=== PATIENT | female | born 1935 | race Caucasian/White ===

== ENCOUNTER 2017-05-23 03:12 | Inpatient (IN) ==
[2017-05-23 03:44] LABS: Basophils % 0.4 %; Eosinophils # 0.2 K/mcL (0.0-0.6); Eosinophils % 2.2 %; Hematocrit 38.3 % (35.3-44.9); Hemoglobin 12.5 g/dL (11.5-15.4); Immature Granulocytes % 0.3 % (0-4); Immature Platelets 3.9 % (1.1-6.1); Lymphocytes % 27.2 %; Mean Corpuscular HGB Conc 32.6 g/dL (31.6-35.5); Mean Corpuscular Hemoglobin 30.4 pg (28.0-33.3); Mean Corpuscular Volume 93.2 fL (83.0-100.0); Mean Platelet Volume 10.3 fL (9.4-12.4); Monocytes # 0.7 K/mcL (0.0-1.3); Monocytes % 9.3 %; Neutrophils # 4.5 K/mcL (1.6-8.9); Platelet Count 196 K/mcL (140-400); Red Blood Count 4.11 M/mcL (3.82-4.97); Red Cell Distribution Width 13.1 % (11.5-14.5); Segmented Neutrophils % 60.6 %
[2017-05-23 03:54] LABS: Potassium 4.3 mEq/L (3.5-4.5)
[2017-05-23] MEDS ORDERED: Aspirin 81 MG TAB.CHEW PO STA (04:20)
[2017-05-23] MEDS ORDERED: *HR* Heparin 5,000 UNIT/ML VIAL IVP ONE (04:22)
[2017-05-23] MEDS ORDERED: *HR* Heparin 5,000 UNIT/ML VIAL IVP PRN ×2 (04:22)
--- NOTE | 2017-05-23 04:26 | Emergency Department Note ---
Disposition Clinical Impression: NSTEMI (non-ST elevated myocardial infarction) Disposition: Admitted As Inpatient Condition: Good Chest Pain HPI - General Chief Complaint: ED Chest Pain Stated Complaint: chest pain Time Seen by Provider: 05/23/17 04:20 Source: patient Limitations: no limitations Vital Signs Reviewed: Yes Nursing Notes Reviewed: Yes - History of Present Illness HPI Narrative: Patient here for evaluation of chest pain that started at 1 AM after she tried to get her up to go the bathroom. Patient states chest pain feels like pain prior to previous triple bypass surgery. She takes daily aspirin but no other anticoagulation. Patient continued to have active chest pain. Worse with exertion. Severity scale (1-10): 7 - Related Data Home Medications Medication Instructions Recorded Confirmed Aspirin 81 mg PO DAILY 03/25/16 03/25/16 Atorvastatin [Lipitor] 40 mg PO HS 03/25/16 03/25/16 Calcium Acetate [Phos-LO] 667 mg PO TIDWM 03/25/16 03/25/16 Docusate [Colace] 100 mg PO 03/25/16 Furosemide [Lasix] 20 mg PO DAILY 03/25/16 03/25/16 Metoprolol [Lopressor] 50 mg PO BID 03/25/16 03/25/16 Multivitamin [Multi-Day Vitamins] 1 each PO DAILY 03/25/16 03/25/16 Niacin [Niacin] 100 mg PO DAILY 03/25/16 03/25/16 Pantoprazole Sodium [Protonix] 40 mg PO DAILY 03/25/16 03/25/16 Vitamin E Acid Succinate [Vitamin 400 units PO DAILY 03/25/16 03/25/16 E] Previous Rx's Medication Instructions Recorded Cetirizine HCl [Zyrtec] 10 mg PO DAILY 4 Days 03/25/16 Doxycycline 100 mg PO BID 7 Days 03/25/16 Fluticasone Propionate Nasal 2 spray NS DAILY 7 Days 03/25/16 [Flonase] Allergies Allergy/AdvReac Type Severity Reaction Status Date / Time Sulfa (Sulfonamide Allergy unknown Verified 03/25/16 10:14 Antibiotics) Iodinated Contrast- Oral and AdvReac Swelling Verified 03/25/16 10:14 IV Dye of [Iodinated Contrast Media - Lip/Tongue/Throat IV Dye] Review of Systems: CONSTITUTIONAL: No weight loss, fever, chills, weakness or fatigue. HEENT: Eyes: No visual changes. Ears, Nose, Throat: No hearing loss, difficulty talking or unable to swallow. SKIN: No rash or itching. CARDIOVASCULAR: Chest pain RESPIRATORY: No shortness of breath, cough or sputum. GASTROINTESTINAL: No anorexia, nausea, vomiting or diarrhea. No abdominal pain or blood. GENITOURINARY: No burning on urination or hematuria. NEUROLOGICAL: No headache, dizziness, syncope, paralysis, ataxia, numbness or tingling in the extremities. No change in bowel or bladder control. MUSCULOSKELETAL: No muscle pain, back pain, joint pain or stiffness. Chest Pain PMH - Past Medical History Medical history: Reports: coronary artery disease, GERD, hyperlipidemia, hypertension, myocardial infarction, osteoporosis Surgical history: Reports: appendectomy, cholecystectomy, hysterectomy, other ( Right corneal transplant) Psychiatric history: Reports: no psych history CHEF GERMAN history: Reports: no CHEF GERMAN history - Social History Smoking Status: Never smoker Alcohol use: Reports: none Drug use: Reports: none Physical Exam General appearance: NAD, conversant Eyes: anicteric sclerae, moist conjunctivae; PERRL HENT: Atraumatic; oropharynx clear with moist mucous membranes and no mucosal ulcerations Neck: Normal inspection; Trachea midline; FROM, supple Lungs: CTA, with normal respiratory effort and no intercostal retractions CV: RRR, no MRGs Abdomen: Soft, non-tender; no rebound or gaurding Extremities: No peripheral edema or extremity lymphadenopathy Skin: Normal temperature; no rash, ulcers or lesions Psych: Appropriate mood and affect Neuro: alert and oriented to person, place and time - General Limitations: no limitations General appearance: alert, in no apparent distress Course - Reevaluation(s) Reevaluation #1: Patient presents for evaluation of chest pain. Due to your circumstances the patient received an EKG and initial labs but had to wait in the lobby. Troponin 0.32. Patient brought back to the main ER. Medications including heparin started. She will be admitted for further workup. - Consultations Consultation #1: Discussed with Dr. Garza. Patient replaced on a nitro drip. Heparin drip as are even started. Will discuss with cardiology. Consultation #2: Discussed with Dr. Myles, agrees with nitro and heparin. No other interventions at this time. Vital Signs Temperature 98.0 F 05/23/17 03:14 Pulse Rate 71 05/23/17 03:14 Respiratory Rate 16 05/23/17 03:14 Blood Pressure 151/98 05/23/17 03:14 O2 Sat by Pulse Oximetry 97 05/23/17 03:14 Temperature 98.0 F 05/23/17 03:14 Pulse Rate 72 05/23/17 06:32 Respiratory Rate 16 05/23/17 06:32 Blood Pressure 133/70 05/23/17 06:32 O2 Sat by Pulse Oximetry 96 05/23/17 06:32 Oxygen Delivery Oxygen Delivery Nasal Cannula Chest Pain - Lab Data Result diagrams: 05/23/17 03:35 05/23/17 03:35 Lab Results 05/23/17 05/23/17 05/23/17 Range/Units 03:35 03:35 03:35 WBC 7.3 (4.3-11.1) K/mcL RBC 4.11 (3.82-4.97) M/mcL Hgb 12.5 (11.5-15.4) g/dL Hct 38.3 (35.3-44.9) % MCV 93.2 (83.0-100.0) fL MCH 30.4 (28.0-33.3) pg MCHC 32.6 (31.6-35.5) g/dL RDW 13.1 (11.5-14.5) % Plt Count 196 (140-400) K/mcL MPV 10.3 (9.4-12.4) fL Immature Gran % 0.3 (0-4) % Seg Neutrophils % 60.6 % Lymphocytes % 27.2 % Monocytes % 9.3 % Eosinophils % 2.2 % Basophils % 0.4 % Neutrophils # 4.5 (1.6-8.9) K/mcL Lymphocytes # 2.0 (0.6-4.6) K/mcL Monocytes # 0.7 (0.0-1.3) K/mcL Eosinophils # 0.2 (0.0-0.6) K/mcL Basophils # 0.0 (0.0-0.2) K/mcL Immature Plt Fraction 3.9 (1.1-6.1) % PT (9.4-12.1) Seconds INR APTT (26.0-36.0) Seconds Sodium 141 (136-145) mEq/L Potassium 4.3 (3.5-4.5) mEq/L Chloride 106 (98-109) mEq/L Carbon Dioxide 27 (19-29) mEq/L BUN 21 H (7-20) mg/dL Creatinine 1.27 H (0.57-1.11) mg/dL Est GFR ( Amer) 49 L (> 60) Est GFR (Non-Af Amer) 40 L (> 60) BUN/Creatinine Ratio 17 (6-26) Glucose 105 H (70-99) mg/dL Calculated Osmolality 295 (280-300) Calcium 10.0 (8.6-10.8) mg/dL Troponin I 0.32 H* (0-0.03) ng/mL 05/23/17 Range/Units 04:41 WBC (4.3-11.1) K/mcL RBC (3.82-4.97) M/mcL Hgb (11.5-15.4) g/dL Hct (35.3-44.9) % MCV (83.0-100.0) fL MCH (28.0-33.3) pg MCHC (31.6-35.5) g/dL RDW (11.5-14.5) % Plt Count (140-400) K/mcL MPV (9.4-12.4) fL Immature Gran % (0-4) % Seg Neutrophils % % Lymphocytes % % Monocytes % % Eosinophils % % Basophils % % Neutrophils # (1.6-8.9) K/mcL Lymphocytes # (0.6-4.6) K/mcL Monocytes # (0.0-1.3) K/mcL Eosinophils # (0.0-0.6) K/mcL Basophils # (0.0-0.2) K/mcL Immature Plt Fraction (1.1-6.1) % PT 10.3 (9.4-12.1) Seconds INR 1.0 APTT 25.4 L (26.0-36.0) Seconds Sodium (136-145) mEq/L Potassium (3.5-4.5) mEq/L Chloride (98-109) mEq/L Carbon Dioxide (19-29) mEq/L BUN (7-20) mg/dL Creatinine (0.57-1.11) mg/dL Est GFR ( Amer) (> 60) Est GFR (Non-Af Amer) (> 60) BUN/Creatinine Ratio (6-26) Glucose (70-99) mg/dL Calculated Osmolality (280-300) Calcium (8.6-10.8) mg/dL Troponin I (0-0.03) ng/mL Critical Care Time Critical Care Time: Yes Total Critical Care Time: 45 Attestation: Critical care performed: Time is exclusive of separately billable procedures. Time includes: direct patient care, patient reassessment, coordination of patient care, interpretation of data (laboratory data, radiology data, and respiratory data), review of patient's medical records, medical consultation and documentation of patient care. Procedures included in critical care time: Procedures excluded from critical care time: Attestation Statement - Attestation Attestation: I, Dago Palencia MD, personally evaluated this patient and discussed their management with the resident physician. I reviewed the resident's note and agree with the documented findings, medical decision making, and plan of care. 81-year-old female presents to the emergency department with a complaint of some mid upper substernal chest pressure which started about 1 AM after she got up and went to the bathroom and then went back to bed. She states it radiates through to her upper back. At one point it can of radiated up into the neck and the left jaw. No diaphoresis. Some mild shortness of breath. No nausea or vomiting. Patient has a history of CABG in the past. No coronary stents. On examination patient is a well-developed well-nourished well-appearing elderly female in no acute distress. She is alert and oriented 3. There is no cyanosis or diaphoresis. Nontender to palpation. Breath sounds are clear and equal bilaterally. Heart regular rate and rhythm. Abdomen soft and nontender with normal bowel sounds. Labs reviewed. Elevated troponin noted. EKG shows some new inferior and anterolateral T-wave inversions with no ST elevation or depression. Chest x-ray : Left basilar atelectasis versus pneumonia. Pulmonary edema may also be present. Patient was placed on a heparin infusion and also nitroglycerin infusion. Dr. Izquierdo discussed with the skin drier on-call, Dr. Myles. The hospitalist , Dr. Garza, was consulted and accepted admission of the patient.
[2017-05-23] MEDS ORDERED: Heparin 25,000 UNIT/500 ML D5W 25,000 UNIT/500 ML MLS IVC SCH (04:30)
[2017-05-23] MEDS: Nitroglycerin 0.4 MG TAB.SUBL SL PRN ×3 (04:47→05:05)
[2017-05-23 04:51] LABS: Prothrombin Time 10.3 Seconds (9.4-12.1)
[2017-05-23 04:53] LABS: Activated Partial Thrombo Time 25.4 Seconds (26.0-36.0)
[2017-05-23] MEDS ORDERED: Nitroglycerin 25 MG/250 ML INFUS..BTL IVC SCH (05:45)
[2017-05-23] MEDS ORDERED: Acetaminophen 325 MG TABLET PO PRN (09:11)
[2017-05-23] MEDS ORDERED: Ondansetron 4 MG/2 ML VIAL IVP PRN (09:11)
[2017-05-23] MEDS ORDERED: *HR* HYDROcodone/Acet 5/325 mg TABLET PO PRN (09:11)
[2017-05-23] MEDS ORDERED: *HR* Morphine 2 MG/ML SYRINGE IVP PRN (09:11)
[2017-05-23] MEDS ORDERED: Naloxone 0.4 MG/ML INJ IVP PRN (09:11)
[2017-05-23] MEDS: Pantoprazole 40 MG VIAL IVP SCH (09:50)
--- NOTE | 2017-05-23 10:45 | Cardiology Consult Note ---
Date of Encounter: 05/23/17 Time of Encounter: 10:43 Assessment and Plan (1) NSTEMI (non-ST elevated myocardial infarction) Current Visit: Yes Status: Acute Initial troponin 0.32. STAT 2nd troponin ordered. Chest pain started at 1AM, currently rated 2/10 improving on nitro gtt. On heparin gtt and nitro gtt, ASA, Statin, BB. Inferolateral EKG changes. Recommend LHC. R/B/A discussed. Pt agrees to proceed. Aware code status needs changed for 24 hours after procedure. Agrees to proceed. Will discuss with Dr. Minh Myles to determine timing of LHC. IVP dye allergy. Will pre-medicate. Check echo to re-evaluate EF. (2) CAD (coronary artery disease), [place] coronary artery Current Visit: No Status: Acute 3V CABG ([facility]) 10/27/2015: JACKSON to LAD, SVG to OM, SVG to distal RCA. ASA, Statin , BB. Qualifiers: [place] vs. transplanted heart: [place] heart Associated angina: with unstable angina Qualified Code(s): I25.110 - Atherosclerotic heart disease of [place] coronary artery with unstable angina pectoris Discussion w patient/family: The assessment and plan as outlined above was discussed with the patient and/or family members who expressed understanding and agreement. All questions were answered. Thank you for involving us in the care of your patient. Please call with any questions. I will discuss all the above with Dr. Minh Myles and make changes as necessary. History of Present Illness Consult date: 05/23/17 Consult reason: NSTEMI Chief complaint: chest pain History of present illness: Ms. Phipps is a 81 year old female with PMH CAD, NSTEMI (10/25/2015), s/p 3V CABG (10/27/2015, [facility]), and postoperative AF. She presented to ED for chest pain that started around 1AM. It was midsternal with radiation to shoulder blades that continued to become more intense. No other associated symptoms. Nitro improved pain in ED. She is currently on nitro gtt at 14mcg/minute with CP 2/ 10. Initial troponin 0.32. Prior studies: LHC 10/25/2015: Multivessel CAD, including a 99% left main stenosis. Echocardiogram 10/24/2015: EF 60-65%. 3V CABG ([facility]) 10/27/2015: JACKSON to LAD, SVG to OM, SVG to distal RCA. Past Med Surg Social Fam HX - Past Medical History Medical history: atrial fibrillation, coronary artery disease, GERD, hyperlipidemia, hypertension, myocardial infarction, osteoporosis Psychiatric history: no psych history - Past Surgical History Surgical History: appendectomy, cholecystectomy, coronary bypass (CABG), hysterectomy, other - Social History Smoking Status: Never smoker Smokeless Tobacco Status: No Alcohol use: none Drug use: none - Family History Father Hx Family Cardiac Disorders: Yes Medications and Allergies Aspirin 81 mg PO DAILY 03/25/16 [History] Atorvastatin [Lipitor] 40 mg PO HS 03/25/16 [History] Calcium Acetate [Phos-LO] 667 mg PO TIDWM 03/25/16 [History] Cetirizine HCl [Zyrtec] 10 mg PO DAILY 4 Days 03/25/16 [Rx] Docusate [Colace] 100 mg PO 03/25/16 [History] Doxycycline 100 mg PO BID 7 Days 03/25/16 [Rx] Fluticasone Propionate Nasal [Flonase] 2 spray NS DAILY 7 Days 03/25/16 [Rx] Furosemide [Lasix] 20 mg PO DAILY 03/25/16 [History] Metoprolol [Lopressor] 50 mg PO BID 03/25/16 [History] Multivitamin [Multi-Day Vitamins] 1 each PO DAILY 03/25/16 [History] Niacin [Niacin] 100 mg PO DAILY 03/25/16 [History] Pantoprazole Sodium [Protonix] 40 mg PO DAILY 03/25/16 [History] Vitamin E Acid Succinate [Vitamin E] 400 units PO DAILY 03/25/16 [History] Allergies Sulfa (Sulfonamide Antibiotics) Allergy (Verified 03/25/16 10:14) unknown Iodinated Contrast- Oral and IV Dye [Iodinated Contrast Media - IV Dye] Adverse Reaction (Verified 03/25/16 10:14) Swelling of Lip/Tongue/Throat All Systems Review: A 10-system review of systems was performed and is negative for pertinent findings except as documented above in the HPI. - Cardiovascular Cardiovascular: as per HPI, chest pain at rest, chest pain with exertion, radiating jaw, neck or arm pain Physical Examination Vital Signs, Last 4 Hours Pulse Resp BP Pulse Ox 05/23/17 09:54 72 16 143/76 97 05/23/17 09:30 80 18 158/74 96 05/23/17 09:15 82 16 148/80 96 General: Conversant, No Apparent Distress HEENT: Atraumatic, Normocephaly, Mucus Membranes Moist Neck: No JVD, Normal carotid pulses Cardiac: Reg Rate and Rhythm, Normal S1 and S2, No Murmur Lungs: Normal Breath Sounds, No Wheeze, Rales, Rhonchi Neuro: Alert and responsive, No focal deficits noted Abdomen: Soft, Non-Tender Skin: No rashes noted on visualized skin Musculoskeletal: No Chest Wall Tenderness Extremities: No Clubbing, No Cyanosis, No Edema, Normal Pulses Results 05/23/17 03:35 05/23/17 03:35 Lab Results 05/23/17 10:21 APTT 88.1 H D Short CBC 05/23/17 Range/Units 03:35 WBC 7.3 (4.3-11.1) K/mcL Hgb 12.5 (11.5-15.4) g/dL Hct 38.3 (35.3-44.9) % Plt Count 196 (140-400) K/mcL Neutrophils # 4.5 (1.6-8.9) K/mcL BMP 05/23/17 Range/Units 03:35 Sodium 141 (136-145) mEq/L Potassium 4.3 (3.5-4.5) mEq/L Chloride 106 (98-109) mEq/L Carbon Dioxide 27 (19-29) mEq/L BUN 21 H (7-20) mg/dL Creatinine 1.27 H (0.57-1.11) mg/dL Glucose 105 H (70-99) mg/dL Calcium 10.0 (8.6-10.8) mg/dL Cardiac Enzymes 05/23/17 Range/Units 03:35 Troponin I 0.32 H* (0-0.03) ng/mL Impressions Chest X-Ray 05/23/17 03:19 IMPRESSION: Left basilar atelectasis versus pneumonia. Pulmonary edema may also be present. D/ / Ye Sanchez MD / Ye Sanchez MD Interpreting Provider: Ye Sanchez MD Active Medications Acetaminophen (Tylenol) 650 mg PO Q6HR PRN PRN Reason: Mild Pain (1-3) Stop: 11/22/17 09:12 Hydrocodone Bitart/Acetaminophen ([place] 5-325 Mg) 1 tab PO Q4HR PRN PRN Reason: Moderate Pain (4-6) Stop: 11/22/17 09:12 Aspirin (Aspirin Ec) 325 mg PO DAILY FALGUNI Stop: 11/23/17 09:01 Heparin Sodium (Porcine) (Heparin) 4,000 unit IVP Q6HR PRN PRN Reason: SEE COMMENTS Stop: 11/22/17 04:23 Heparin Sodium (Porcine) (Heparin) 2,000 unit IVP Q6H PRN PRN Reason: SEE COMMENTS Stop: 11/22/17 04:23 Heparin Sodium/Dextrose (Heparin 25,000 Unit/500 Ml D5w) 25,000 unit in 500 mls @ 17.418 mls/hr IVC .Q24H FALGUNI; 12 UNIT/KG/HR PRN Reason: Protocol Stop: 11/22/17 04:31 Last Admin: 05/23/17 05:08 Dose: 12 unit/kg/hr, 17.418 mls/hr Nitroglycerin (Nitroglycerin Premix 25 Mg/250 Ml) 25 mg in 250 mls @ 6 mls/hr IVC .Q24H FALGUNI; 10 MCG/MIN PRN Reason: Protocol Stop: 11/22/17 05:46 Last Titration: 05/23/17 08:30 Dose: 14 mcg/min, 8.4 mls/hr Morphine Sulfate (Morphine Sulfate) 2 mg IVP Q4HR PRN PRN Reason: Severe Pain (7-10) Stop: 11/22/17 09:12 Naloxone HCl (Narcan) 0.4 mg IVP Q2MIN PRN PRN Reason: Opioid Reversal Stop: 11/22/17 09:12 Nitroglycerin (Nitroglycerin) 0.4 mg SL Q5MIN PRN PRN Reason: Chest Pain Stop: 11/22/17 04:21 Last Admin: 05/23/17 05:05 Dose: 0.4 mg Ondansetron HCl (Zofran) 4 mg IVP Q8HR PRN PRN Reason: Nausea And Vomiting Stop: 11/22/17 09:12 Pantoprazole Sodium (Protonix) 40 mg IVP DAILY FALGUNI Stop: 11/22/17 09:16 Last Admin: 05/23/17 09:50 Dose: 40 mg - Imaging and Cardiology Echo: report reviewed Cardiac cath: report reviewed - EKG Interpretation EKG results cardiology: personally reviewed (SR, inferolateral changes) Consult Discharge Plan - Plan Referrals: Aristeo White MD [Primary Care Provider] -
[2017-05-23] MEDS: predniSONE 20 MG TABLET PO SCH ×2 (11:29→16:59)
--- NOTE | 2017-05-23 13:04 | Internal Med History&Physical ---
<Óscar Holbrook - Last Filed: 05/23/17 13:32> Date of Encounter: 05/23/17 Time of Encounter: 10:00 Assessment and Plan (1) NSTEMI (non-ST elevated myocardial infarction) Current visit: Yes Status: Acute Patient presents with chest pain which she states began approximately 1 AM with exertion when she tried to get her up to go to the bathroom. Patient describes the pain as a dull ache in the central chest area that radiates to her left neck and behind her head as well as between both shoulder blades. She reports this chest pain feels similar to the chest pain prior to her triple bypass surgery in 2016. She also reports 3 blockages of 95% to 99%, one of which is the maker. Mrs. Phipps states that the pain is present with or without exertion. Cardiology consult ordered and discussed with Dr. Myles and Дмитрий Mclean. Patient to be NPO due to probably heart catheterization tomorrow. Echocardiogram ordered. Continue IV heparin and nitroglycerin drips. Continue aspirin therapy. Patient's initial troponin was 0.32 on admission to ED. Troponins trended 2. Patient to be placed on cardiac telemetry and supplemental O2. Monitor closely for signs of increased cardiac and/or respiratory distress. (2) Elevated troponin Current visit: Yes Status: Acute Patient presents with acute elevated troponin of 0.32 on first draw. We will trend troponins 2. Cardiology consult ordered and discussed with Dr. Myles and Дмитрий Mclean. (3) CAD (coronary artery disease), [place] coronary artery Current visit: Yes Status: Chronic Patient presents with history of chronic coronary artery disease with triple bypass performed at [facility] on 10/27/2015. We will continue aspirin therapy, patient 's Lipitor, and metoprolol. Qualifiers: [place] vs. transplanted heart: [place] heart Associated angina: with unstable angina Qualified Code(s): I25.110 - Atherosclerotic heart disease of [place] coronary artery with unstable angina pectoris (4) GERD (gastroesophageal reflux disease) Current visit: Yes Status: Chronic Patient presents with history of chronic gastroesophageal reflux disease. IVP Protonix 40 mg daily ordered. Qualifiers: Esophagitis presence: esophagitis presence not specified Qualified Code(s) : K21.9 - Gastro-esophageal reflux disease without esophagitis (5) HLD (hyperlipidemia) Current visit: Yes Status: Chronic Patient presents with history of chronic hyperlipidemia. Lipid panel ordered. Will continue patient's Lipitor. Qualifiers: Hyperlipidemia type: pure hypercholesterolemia Qualified Code(s): E78.00 - Pure hypercholesterolemia, unspecified; E78.0 - Pure hypercholesterolemia (6) HTN (hypertension) Current visit: Yes Status: Chronic Patient presents with history of chronic hypertension. Upon admission to ED patient's blood pressure was 151/98. Will monitor patient in vital signs and continue patient's metoprolol. Qualifiers: Hypertension type: essential hypertension Qualified Code(s): I10 - Essential (primary) hypertension (7) DVT prophylaxis Current visit: Yes Status: Acute Patient placed on DVT prophylaxis due to current admission protocol and current symptomatology. IV heparin drip was administered in the ED and will be continued. Internal Medicine - H&P: HPI Chief complaint: Chest pain Admitted From: Emergency Dept Plans for Post Hospital Care: Home History of present illness: Mrs. Phipps is a 81 year old female who presents from the ED with chief complaint of chest pain which she states began approximately 1 AM with exertion when she tried to get her up to go to the bathroom. Patient describes the pain as a dull ache in the central chest area that radiates to her left neck and behind her head as well as between both shoulder blades. She reports this chest pain feels similar to the chest pain prior to her triple bypass surgery in 2016. She also reports 3 blockages of 95% to 99%, one of which is the maker. Mrs. Phipps states that the pain is present with or without exertion. Patient's medical history includes CAD, GERD, hyperlipidemia, hypertension, [place], and osteoporosis. Patient reports she has never smoked. IV heparin drip and IV nitro drip were administered in the ED and will be continued. Cardiology consult ordered and discussed with Dr. Myles. Patient will be kept nothing by mouth for probable heart catheterization tomorrow. Mrs. Phipps is at high risk for cardiac event based on previous MN, current symptoms, and current risk factors and will be placed as inpatient status with orders for continuous cardiac telemetry, supplemental O2 and continuous SPO2 monitoring, troponins trended 2, continuation of IV heparin drip, nitroglycerin drip, and aspirin therapy. We will continue patient's statin and beta adrian per cardiology. Patient to be monitored closely for signs of increasing cardiac and/or respiratory distress. Time spent with patient > 40 minutes. Past Med Surg Social Fam HX - Past Medical History Source: patient Medical history: atrial fibrillation, coronary artery disease, GERD, hyperlipidemia, hypertension, myocardial infarction, osteoporosis Psychiatric history: no psych history - Past Surgical History Surgical History: appendectomy, cholecystectomy, coronary bypass (CABG), hysterectomy (Total), other - Social History Smoking Status: Never smoker Smokeless Tobacco Status: No Alcohol use: none Drug use: none Current living situation: Home, With Family Activity Level: Independent ambulation Recent Out of Country Travel Within the Last 8 Weeks: No Exposure or Possible Exposure to Illness During Travel: No - Family History Father Race: Family Member Ethnicity: Non- Living Status: Age at : 49 Cause of : MN Hx Family Cardiac Disorders: Yes (MN) Mother Race: Family Member Ethnicity: Non- Living Status: Age at : 56 Cause of : Kidney Failure Hx Family Genitourinary Disorders: Yes (Renal disease) Brother Race: Family Member Ethnicity: Non- Living Status: Age at : 42 Cause of : [place] Hx Family Cardiac Disorders: Yes (MN, HD) Sister Race: Family Member Ethnicity: Non- Living Status: Still Living Hx Family Cardiac Disorders: Yes (HD) Internal Medicine - H&P: Meds Aspirin 81 mg PO DAILY 03/25/16 [History] Atorvastatin [Lipitor] 40 mg PO HS 03/25/16 [History] Calcium Acetate [Phos-LO] 667 mg PO TIDWM 03/25/16 [History] Cetirizine HCl [Zyrtec] 10 mg PO DAILY 4 Days 03/25/16 [Rx] Docusate [Colace] 100 mg PO DAILY 03/25/16 [History] Furosemide [Lasix] 20 mg PO DAILY 03/25/16 [History] Metoprolol [Lopressor] 50 mg PO BID 03/25/16 [History] Multivitamin [Multi-Day Vitamins] 1 tab PO DAILY 03/25/16 [History] Niacin [Niacin] 100 mg PO DAILY 03/25/16 [History] Pantoprazole Sodium [Protonix] 40 mg PO DAILY 03/25/16 [History] Vitamin E Acid Succinate [Vitamin E] 400 units PO DAILY 03/25/16 [History] Cholecalciferol (Vitamin D3) [Vitamin D] 1,000 unit PO DAILY 05/23/17 [History] Fluticasone Propionate Nasal [Flonase] 50 mcg NS DAILY 05/23/17 [History] Potassium Chloride [Klor-Con 10] 10 meq PO DAILY 05/23/17 [History] Allergies Sulfa (Sulfonamide Antibiotics) Allergy (Verified 03/25/16 10:14) unknown Iodinated Contrast- Oral and IV Dye [Iodinated Contrast Media - IV Dye] Adverse Reaction (Verified 03/25/16 10:14) Swelling of Lip/Tongue/Throat All Systems PM: A 10-system review of systems was performed and is negative for pertinent findings except as documented above in the HPI. - Constitutional Constitutional: no chills, no fever(s), no night sweats - EENT Eyes: no change in vision, no discharge, no pain, no photophobia Ears: no ear discharge, no ear pain, no tinnitus Nose, mouth and throat: no dysphagia, no nasal discharge, no neck pain, no sore throat - Breasts Breasts: as per HPI - Cardiovascular Cardiovascular ROS IM: as per HPI, chest pain, dyspnea - Respiratory Respiratory: as per HPI, dyspnea (Related to CP) - Gastrointestinal Gastrointestinal: no abdominal pain, no diarrhea, no hematemesis, no hematochezia, no melena, no nausea, no vomiting - Genitourinary Genitourinary: no change in urinary stream, no dysuria, no flank pain, no hematuria Menstruation: as per HPI, post hysterectomy - Musculoskeletal Musculoskeletal ROS IM: no numbness, no tingling - Integumentary Integumentary IM: no rash, no unusual bruising - Neurological Neurological ROS: no confusion, no convulsions, no focal weakness, no numbness, no tingling, no tremor(s) - Psychiatric Psychiatric: as per HPI - Endocrine Endocrine IM: as per HPI - Hematologic/Lymphatic Hematologic/Lymphatic: no easy bruising - Allergic/Immunologic Allergic/Immunologic: as per HPI - Constitutional Vitals: Temp Pulse Resp BP Pulse Ox 98.0 F 80 16 137/72 97 05/23/17 03:14 05/23/17 11:30 05/23/17 11:30 05/23/17 11:30 05/23/17 11:30 General appearance: Present: cooperative, mild distress, A&O X 3, pleasant, obese, answers questions appropriately - Head Head exam: Present: atraumatic, normocephalic - Eye Eye exam: Present: PERRL, conjuntiva pink, sclera anicteric Pupils: Present: PERRL - ENT ENT exam: Present: normal exam, normal external ear exam - Neck Neck exam general surgery: Present: normal inspection, supple, trachea midline. Absent: lymphadenopathy - Respiratory Respiratory exam: Present: CTAB. Absent: accessory muscle use, rales, rhonchi, wheezes - Cardiovascular Cardiovascular exam: Present: RRR, +S1, +S2. Absent: diastolic murmur, gallop, rubs, systolic murmur - GI/Abdominal GI/Abdominal exam: Present: normal bowel sounds, soft, no peritoneal signs. Absent: distended, tenderness - Rectal Rectal exam: Present: deferred - Additional comments: exam deferred. - Extremities Exam Extremities exam: Present: warm, radial pulses palpable and symetrical. Absent : calf tenderness, cyanotic, pedal edema - Back Exam Back exam: Present: normal inspection - Neurological Exam Neurological exam: Present: CN II-XII intact, oriented X3, no focal deficits. Absent: pronater drift, facial droop, speech deficit - Psychiatric Psychiatric exam: Present: normal affect, normal mood - Skin Skin exam: Present: dry, intact Internal Med - H&P Results - Labs CBC & Chem 7: 05/23/17 03:35 05/23/17 03:35 Labs: Cardiac Enzymes 05/23/17 Range/Units 10:21 Troponin I 0.45 H* (0-0.03) ng/mL - EKG Data EKG shows normal: sinus rhythm - EKG Data Prior EKG available for review: yes Interpretation IM: suggestive of ischemia EKG comments: 05/23/17 13:19 EKG dated 11/07/15 shows sinus rhythm with left anterior fascicular block, possible septal myocardial infarction of indeterminate age. EKG dated 05/23/17 shows sinus rhythm with intraventricular conduction delay, left ventricular hypertrophy and ST-T changes, possible anterior myocardial infarction of indeterminate age. - Diagnostic Studies Chest x-ray Additional comments: Impressions Chest X-Ray 05/23/17 03:19 IMPRESSION: Left basilar atelectasis versus pneumonia. Pulmonary edema may also be present. D/ / Ye Sanchez MD / Ye Sanchez MD Interpreting Provider: Ye Sanchez MD <Jeremy Clemens - Last Filed: 05/23/17 15:47> Date of Encounter: 05/23/17 Internal Medicine - H&P: HPI History of present illness: Ms. Phipps is a 81 year old female All Systems PM: A 10-system review of systems was performed and is negative for pertinent findings except as documented above in the HPI. - Constitutional Vitals: Temp Pulse Resp BP Pulse Ox 98.2 F 69 18 118/65 91 05/23/17 15:30 05/23/17 15:30 05/23/17 15:30 05/23/17 15:30 05/23/17 15:30 Internal Med - H&P Results - Labs CBC & Chem 7: 05/23/17 03:35 05/23/17 03:35 Labs: Cardiac Enzymes 05/23/17 Range/Units 10:21 Troponin I 0.45 H* (0-0.03) ng/mL - Attending Attestation I have seen and examined the patient. I have reviewed the orders in the note. Patient is a 81-year-old female with past medical history of coronary artery disease status post CABG, hyperlipidemia, hypertension and atrial fibrillation. Patient presents to the ED with complaints of chest pain that started around 1 AM this morning. Patient describes it as mid sternal chest pain radiating to shoulder blades in her neck. Symptoms will gradually worsening and she decided to come to the ER. She also had mild associated shortness of breath. Initial evaluation in the ED revealed elevated troponin at 0.32. EKG revealed T-wave inversions in inferior and anterolateral leads. No ST elevation or depression. Chest x-ray revealed left basilar atelectasis and mild pulmonary edema. Patient continued to have chest pain. She was started on IV heparin and also on IV nitroglycerin drip. Cardiology was consulted from the ED. Patient will undergo left heart catheterization tomorrow morning. We will continue IV heparin at this time. We will trend troponin. Patient will be kept nothing by mouth after midnight in view of the left heart catheter tomorrow. Patient is awake and alert. She states her chest pain has now almost resolved. Denies shortness of breath. Not in any distress. Patient and family members have been explained about her condition and plan of care. They understood and agreed. No unanswered questions. CODE STATUS full code. Heart rate 67, blood pressure 123/67, O2 sat 93% on 2 L O2. Heart positive. Lungs bilaterally good air entry no wheezes or crackles. Abdomen soft nontender no masses or guarding. Extremities all pulses strong and regular and no edema.
[2017-05-23] MEDS ORDERED: Perflutren Lipid Microsphere 1.3 ML in 0.9 % Sodium Chloride 8.7 ML IVP ONE (14:02)
[2017-05-23] MEDS ORDERED: Perflutren Lipid Microsphere 2 ML VIAL ONE (14:21)
[2017-05-24 05:02] LABS: INR 1.1; Prothrombin Time 12.3 Seconds (9.4-12.1)
[2017-05-24 05:05] LABS: Activated Partial Thrombo Time 69.6 Seconds (26.0-36.0)
[2017-05-24 05:11] LABS: Basophils % 0.1 %; Hematocrit 34.6 % (35.3-44.9); Hemoglobin 11.7 g/dL (11.5-15.4); Immature Granulocytes % 0.3 % (0-4); Lymphocytes # 1.5 K/mcL (0.6-4.6); Lymphocytes % 20.4 %; Mean Corpuscular HGB Conc 33.8 g/dL (31.6-35.5); Mean Corpuscular Hemoglobin 30.9 pg (28.0-33.3); Mean Corpuscular Volume 91.3 fL (83.0-100.0); Mean Platelet Volume 10.9 fL (9.4-12.4); Monocytes # 0.4 K/mcL (0.0-1.3); Neutrophils # 5.4 K/mcL (1.6-8.9); Platelet Count 186 K/mcL (140-400); Red Blood Count 3.79 M/mcL (3.82-4.97); Red Cell Distribution Width 13.1 % (11.5-14.5); Segmented Neutrophils % 74.2 %
[2017-05-24 05:15] LABS: Calcium 9.5 mg/dL (8.6-10.8); Chol/HDL Ratio 3.1 (0-4.9); Potassium 4.1 mEq/L (3.5-4.5)
--- NOTE | 2017-05-24 07:49 | Pre-Sedation Evaluation ---
Pre-sedation evaluation - Pre-sedation checklist Date of procedure: 05/24/17 Procedure: HEART CATH Recent Vitals: Last Vital Signs Temp 98.1 F 05/24/17 07:01 Pulse 62 05/24/17 07:01 Resp 16 05/24/17 07:01 BP 135/66 05/24/17 07:01 Pulse Ox 93 05/24/17 07:01 H&P (including ROS) documented in medical record: Yes Previous reaction to sedatives/anesthetics: No Dietary Status: NPO after Midnight Dentition: No loose teeth or bridges ASA Classification *see protocol: CLASS II-Mild systemic disease Plan of Care: Pt appropriate candidate for procedure/moderate/conscious sedation , Risks/benefits of procedure/sedation discussed w/ patient/family
[2017-05-24] MEDS ORDERED: 0.9 % Sodium Chloride 1,000 ML ONE (07:56)
[2017-05-24] MEDS ORDERED: Heparin 1,000 UNITS/500 mL NS 500 ML ONE (07:56)
[2017-05-24] MEDS ORDERED: *HR* Heparin 10,000 UNIT/10 ML VIAL ONE (07:56)
[2017-05-24] MEDS ORDERED: Nitroglycerin 1,000 MCG/10 ML VIAL IV ONE (07:57)
[2017-05-24] MEDS: Pantoprazole 40 MG VIAL IVP SCH (08:03)
[2017-05-24] MEDS: predniSONE 20 MG TABLET PO SCH (08:04)
[2017-05-24] MEDS: Cholecalciferol (D-3) 1,000 UNIT TABLET PO SCH (08:04)
[2017-05-24] MEDS: Calcium Acetate 667 MG CAPSULE PO SCH ×3 (08:04→18:10)
[2017-05-24] MEDS: (Niacin [Niacin] 100 MG) PO SCH (08:05)
[2017-05-24] MEDS: Loratadine 10 MG TABLET PO SCH (08:05)
[2017-05-24] MEDS: Fluticasone Propionate Nasal 50 MCG/SPRAY BOTTLE NS SCH (08:10)
[2017-05-24] MEDS ORDERED: *HR* Midazolam HCl 2 MG/2 ML VIAL ONE (08:34)
[2017-05-24] MEDS ORDERED: *HR* FentaNYL (PF) 100 MCG/2 ML VIAL ONE (08:35)
[2017-05-24] MEDS ORDERED: methylPREDNISolone 125 MG/2 ML VIAL ONE (08:37)
[2017-05-24] MEDS ORDERED: 0.9 % Sodium Chloride 500 ML ONE (08:37)
[2017-05-24] MEDS ORDERED: Furosemide 20 MG TABLET PO SCH (09:00)
[2017-05-24] MEDS ORDERED: Aspirin Enteric Coated 325 MG Tablet PO SCH (09:00)
[2017-05-24] MEDS ORDERED: Tirofiban 12.5 MG/250ML 12.5 MG/250 ML BAG ONE (09:46)
[2017-05-24] MEDS ORDERED: Tirofiban 12.5 MG/250ML 12.5 MG/250 ML BAG IVC SCH (10:15)
[2017-05-24] MEDS ORDERED: *HR* Atropine Sulfate 1 MG/10 ML SYRINGE ONE (12:26)
[2017-05-24] MEDS: 0.9 % Sodium Chloride 1,000 ML IVC SCH ×2 (14:19→22:52)
--- NOTE | 2017-05-24 14:41 | Internal Med Progress Note ---
<AaronHomar jiménez - Last Filed: 05/24/17 14:39> Date of Encounter: 05/24/17 Time of Encounter: 14:39 - Assessment and plan (1) NSTEMI (non-ST elevated myocardial infarction) Current Visit: Yes Status: Acute Assessment and plan: Patient had left heart catheterization today and had 3 stents placed including a stent in her right venous graft. Patient is chest pain-free at this time. Continue uninterrupted dual antiplatelet therapy for 1 year. Appreciate cardiology recommendations (2) CAD (coronary artery disease), [place] coronary artery Current Visit: Yes Status: Chronic Assessment and plan: Status post PCI as discussed above. Continue aspirin, plavix, statin, beta adrain. Qualifiers: [place] vs. transplanted heart: [place] heart Associated angina: with unstable angina Qualified Code(s): I25.110 - Atherosclerotic heart disease of [place] coronary artery with unstable angina pectoris (3) GERD (gastroesophageal reflux disease) Current Visit: Yes Status: Chronic Assessment and plan: Stable. Continue PPI. Qualifiers: Esophagitis presence: esophagitis presence not specified Qualified Code(s) : K21.9 - Gastro-esophageal reflux disease without esophagitis (4) HLD (hyperlipidemia) Current Visit: Yes Status: Chronic Assessment and plan: Continue statin. Qualifiers: Hyperlipidemia type: pure hypercholesterolemia Qualified Code(s): E78.00 - Pure hypercholesterolemia, unspecified; E78.0 - Pure hypercholesterolemia (5) HTN (hypertension) Current Visit: Yes Status: Chronic Assessment and plan: Blood pressure under good control. Continue medications. Qualifiers: Hypertension type: essential hypertension Qualified Code(s): I10 - Essential (primary) hypertension - Subjective Interval history: Patient seen and examined at bedside. Patient states that she feels pretty good today. She is somewhat sleepy after her procedure. She has no complaints at this time. She denies chest pain, shortness of breath, nausea, vomiting. - Constitutional Vitals: Temp Pulse Resp BP Pulse Ox 97.9 F 64 16 107/81 96 05/24/17 11:26 05/24/17 13:00 05/24/17 12:45 05/24/17 13:00 05/24/17 13:00 General appearance: Present: cooperative, A&O X 3, pleasant, no acute distress, answers questions appropriately - Respiratory Respiratory exam: Present: CTAB. Absent: rales, rhonchi, wheezes - Cardiovascular Cardiovascular exam: Present: RRR. Absent: gallop, rubs, systolic murmur - GI/Abdominal GI/Abdominal exam: Present: normal bowel sounds, soft. Absent: distended, tenderness - Extremities Exam Extremities exam: Present: warm. Absent: pedal edema, tenderness - Neurological Exam Neurological exam: Present: alert, CN II-XII intact, oriented X3, no focal deficits Internal Medicine: Result - Labs CBC & Chem 7: 05/24/17 04:28 05/24/17 04:28 Labs: Short CBC 05/24/17 Range/Units 04:28 WBC 7.3 (4.3-11.1) K/mcL Hgb 11.7 (11.5-15.4) g/dL Hct 34.6 L (35.3-44.9) % Plt Count 186 (140-400) K/mcL Neutrophils # 5.4 (1.6-8.9) K/mcL BMP 05/24/17 04:28 Sodium 138 Potassium 4.1 Chloride 105 Carbon Dioxide 24 BUN 21 H Creatinine 1.27 H Glucose 172 H Calcium 9.5 Cardiac Enzymes 05/23/17 Range/Units 16:15 Troponin I 0.29 H* (0-0.03) ng/mL - ABG Interpretation ABG results: PT/INR, D-dimer PT 12.3 Seconds (9.4-12.1) H 05/24/17 04:28 Consult Discharge Plan - Plan Referrals: Daniel Wilson MD [Partnered Physician] - (CARDIOLOGY OFFICE WILL CALL PATIENT AT HOME WITH APPOINTMENT) Aristeo White MD [Primary Care Provider] - (SENT WEB REQUEST ON 05-24-17 @ [phone]) <Hair Burden - Last Filed: 05/24/17 19:00> Date of Encounter: 05/24/17 - Constitutional Vitals: Temp Pulse Resp BP Pulse Ox 97.5 F L 91 12 118/63 94 05/24/17 18:48 05/24/17 18:48 05/24/17 18:48 05/24/17 18:48 05/24/17 18:48 Internal Medicine: Result - Labs CBC & Chem 7: 05/24/17 04:28 05/24/17 04:28 Labs: Short CBC 05/24/17 Range/Units 04:28 WBC 7.3 (4.3-11.1) K/mcL Hgb 11.7 (11.5-15.4) g/dL Hct 34.6 L (35.3-44.9) % Plt Count 186 (140-400) K/mcL Neutrophils # 5.4 (1.6-8.9) K/mcL BMP 05/24/17 04:28 Sodium 138 Potassium 4.1 Chloride 105 Carbon Dioxide 24 BUN 21 H Creatinine 1.27 H Glucose 172 H Calcium 9.5 - ABG Interpretation ABG results: PT/INR, D-dimer PT 12.3 Seconds (9.4-12.1) H 05/24/17 04:28 - Impressions Impressions Echocardiogram 05/23/17 11:08 Impressions: LVEF 45%. Normal LV chamber size. Mild segmental left ventricular systolic dysfunction. Mild left ventricular diastolic dysfunction. Normal right ventricular structure and function. No evidence of PFO with agitated saline contrast. Mild tricuspid regurgitation. Mild pulmonary hypertension. Estimated RVSP is 43 mmHg. Left Ventricular Wall Motion: Rest Echo Findings The apex, apical inferior and apical septal bhat were hypokinetic. All other wall segments showed normal motion. Findings: Study Quality * Technically adequate exam. ECG Findings * Normal sinus rhythm. Left Ventricle * LVEF 45%. * Normal LV chamber size. * Mild segmental left ventricular systolic dysfunction. * Mild left ventricular diastolic dysfunction. Right Ventricle * Normal right ventricular structure and function. Left Atrium * Mildly dilated left atrium. Right Atrium * Mildly dilated right atrium. Interatrial Septum * No evidence of PFO with agitated saline contrast. Aortic Valve * Aortic valve not well visualized. * Grossly appears to be trileaflet aortic valve. * No aortic regurgitation. * No aortic stenosis. Mitral Valve * Normal mitral valve structure and function. * No mitral regurgitation. * No mitral stenosis. Tricuspid Valve * Normal tricuspid valve structure. * Mild tricuspid regurgitation. * Mild pulmonary hypertension. * Estimated RVSP is 43 mmHg. * Estimated RA pressure is 5 mmHg. Pulmonic Valve * Normal pulmonic valve structure and function. * No pulmonic regurgitation. Aorta * Normally sized aortic root. Pericardium * The pericardium appears normal. IVC * Normal IVC dimensions and inspiratory collapse. Pulmonary Artery * Normal visualized portions of the main pulmonary artery. - Attending Attestation I examined this patient and my medical decision-making was reviewed with the Resident Physician, Dr. Mclaughlin. I agree with the documented findings, disposition and treatment plan as described except to the extent set forth below. I have independently obtained history and examined the patient and my findings are summarized below: She denies chest pain. Heart is regular with no murmurs. Lungs are clear. Plan: She had cardiac catheterization with 3 stents placed today. We will continue full medical management. She is at high risk for morbidity mortality and complications due to cardiovascular studies with IV contrast.
--- NOTE | 2017-05-24 15:18 | Electrocardiograph Report ---
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
--- NOTE | 2017-05-24 15:18 | Electrocardiograph Report ---
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
--- NOTE | 2017-05-24 15:23 | Electrocardiograph Report ---
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
--- NOTE | 2017-05-24 15:27 | Invasive Diagnostic Lab Proc ---
Name: Tali Phipps Date of Study: 05/24/2017 Date: 1935 Ht: 64.2in Medical Record#: [id number] Age: 81 Wt: 165.35lb Gender: Female BSA: 1.81 Order #: [id number] BMI: 28.23 Physicians Procedure Physician: Daniel Wilson MD, [facility] Referring MD: Referring MD: Staff Name Position Time In Crispin Jia RN Monitor 08:38 AM Mitra Reyez RT (R) Scrub 08:38 AM Anya Contreras RN Technology Methodology Consultant 08:38 AM Michelle Harvey RN Nurse 10:06 AM Indications Indication Non-Stemi Procedures Performed Procedure L HRT ART/GRFT ANGIO PRQ CARD GRGEOR STENT W/ANGIO 1 VSL Pre-Procedure Checklist Informed consent is complete signed and on chart. H&P is on chart. ID band is on and ID verified with patient. Patient NPO for procedure The procedure was described for the patient and questions were answered. Blood Pressure: 135/66 ECG is on chart. Plan of Care Patient will tolerate the procedure without complications. Adequate level of comfort will be maintained. Hemodynamics will remain stable Patient will recover from procedure without complications. Respiratory function will be maintained. Cardiac rhythm will remain stable. Patient temperature will be maintained. Patient and/or family have verbalized understanding of the procedure. Patient Education Chief Complaint/Reason for Test: Cardiac Cath Developmental Category: Geriatric (65+ years) Developmentally Appropriate for Age: Yes Learning Barriers: None Education Needs: Procedure Education Method: Verbal Information Taught: Cardiac Cath Educational Evaluation: Able to repeat information Intravenous Access Time IV Size Location DC'd Fluid/Drip Rate Units RN 08:05 AM 20g 1 1/4" Patent On Arrival Rt Hand Allergies Iodinated Contrast Media - Oral and Iodinated Contrast- Oral and IV Dye Sulfa (Sulfonamide Antibiotics) Vital Signs Time BP (mmHg) HR (bpm) O2 Sat. RR (bpm) LOC 08:06 AM 135 / 66 62 94 % 16 5 = Fully awake and oriented or at pre-proc level 08:38 AM / % 5 = Fully awake and oriented or at pre-proc level 08:38 AM / % 3 = Answers simple questions/follows commands 08:53 AM / % 4 = Oriented but drowsy 09:08 AM / % 4 = Oriented but drowsy 09:39 AM / % 4 = Oriented but drowsy 08:38 AM 157 / 81 76 96 % 08:43 AM 161 / 73 69 100 % 17 08:48 AM 174 / 80 68 99 % 17 08:53 AM 167 / 76 64 100 % 37 08:58 AM 177 / 92 71 97 % 31 09:03 AM 168 / 74 67 94 % 16 09:08 AM 159 / 79 64 94 % 26 09:13 AM 169 / 97 74 95 % 27 09:18 AM 170 / 105 73 96 % 13 09:23 AM 159 / 75 61 94 % 12 09:28 AM 158 / 76 59 95 % 12 09:33 AM 159 / 83 65 94 % 13 09:38 AM 162 / 80 61 93 % 14 09:43 AM 176 / 93 72 93 % 14 09:48 AM 157 / 110 89 95 % 20 09:53 AM 167 / 85 68 95 % 17 09:58 AM 172 / 93 69 97 % 30 10:03 AM 189 / 95 84 98 % 15 Procedural Medications Time Medication Dose Units Method Given By 08:38 AM Oxygen 2 L/min nasal cannula Anya Contreras RN 08:44 AM Benadryl 50 mg Intravenous Anya Contreras RN 08:45 AM Solu-medrol 125 mg Intravenous Anya Contreras RN 08:50 AM Versed 1 mg Intravenous Anya Contreras RN 08:50 AM Fentanyl 25 mcg Intravenous Anya Contreras RN 08:54 AM Lidocaine 2% 17 ml Subcutaneous Daniel Wilson MD, [facility] 09:14 AM Heparin 4000 units Intravenous Anya Contreras RN 09:15 AM Versed 1 mg Intravenous Anya Contreras RN 09:15 AM Fentanyl 25 mcg Intravenous Anya Contreras RN 09:49 AM Aggrastat 12.5mg/250ml 37.5 ml Intravenous Anya Contreras RN 09:50 AM Aggrastat 12.5mg/250ml 6.75 ml Intravenous Anya Contreras RN 10:05 AM Plavix 600 mg Orally Anya Contreras RN ASA Classification: CLASS II- Mild systemic disease (i.e. well-controlled diabetes, hypertension, asthma, cigarette smoking) Abena Score Preprocedure Postprocedure Activity 2- Moves 4 extremities sustained head lift Activity 2- Moves 4 extremities sustained head lift Circulation 2- SBP +/= 20 points of pre-anesthetic level Circulation 2- SBP +/= 20 points of pre-anesthetic level Consciousness 2- Awake and alert oriented x 3 Consciousness 2- Awake and alert oriented x 3 O2 Saturation 2- Able to maintain O2 satruation of 92% on room air O2 Saturation 2- Able to maintain O2 satruation of 92% on room air Respiratory 2- Able to deep breathe and cough well Respiratory 2- Able to deep breathe and cough well Total Score 10 Total Score 10 Contrast Agent: Isovue Diagnostic Contrast: 150 ml Total Contrast: 150 ml Fluoro Dose: 1087 mGy Activated Clotting Time Time Seconds to Clot 09:20 AM 184 Procedure Log Time Note Enter By 08:06 AM CathStat 08:07 AM Case Start 08:37 AM Vitals capture started with the following parameters, Patient=Adult, Interval=5 min, Initial Xnnnetab=618 mmHg, Deflation Rate=5 mmHg, Cuff placed on Right Arm 08:37 AM 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 Bilateral groin prepped with Chloraprep by Mitra Reyez RT (R), safety strap applied then patient was draped. Skin intact. [email or web address] 08:38 AM Physician arrived 08:38 [email or web address] 08:38 AM ASA Class CLASS II- Mild systemic disease (i.e. well-controlled diabetes, hypertension, asthma, cigarette smoking) [email or web address] 08:38 AM James and katie completed [email or web address] 08:38 AM Sign in performed according to hospital policy. [email or web address] 08:38 AM Procedure start 08:38 [email or web address] 08:38 AM Time: 08:38 Oxygen on at 2 L/min per nasal cannula by Anya Contreras RN [email or web address] 08:38 AM Time: 08:38 Patient comfortable and pain free: Yes [email or web address] 08:38 AM Time: 08:38LOC: 5 = Fully awake and oriented or at pre-proc level [email or web address] 08:38 AM Clinical Presentation[facility] AM HR=69 bpm, SVCR=583/73 mmhg, HhA7=331.0 %, Resp=17 B/min, Comment=AF 08:43 AM Recorded ECG: HR=68 Condition=Condition 1 08:44 AM Time: 08:44 Benadryl 50 mg Intravenous Given by Anya Contreras RN 08:45 AM Time: 08:45 Solu-medrol 125 mg Intravenous Given by Anya Contreras RN 08:48 AM HR=68 bpm, UODV=803/80 mmhg, SpO2=99.0 %, Resp=17 B/min, Comment=AF 08:50 AM Time: 08:50 Versed 1 mg Intravenous Given by Anya Contreras RN 08:50 AM Time: 08:50 Fentanyl 25 mcg Intravenous Given by Anya Contreras RN 08:51 AM Pressure channel 1 zeroed. 08:53 AM HR=64 bpm, WKGR=573/76 mmhg, NcW4=880.0 %, Resp=37 B/min, Comment=AF 08:53 AM Time: 08:38 Patient comfortable and pain free: Yes [email or web address] 08:53 AM Time: 08:38LOC: 3 = Answers simple questions/follows commands [email or web address] 08:54 AM Time out performed according to hospital policy [email or web address] 08:55 AM Time: 08:54 17 ml Lidocaine 2% to right groin Subcutaneous Given by Daniel Wilson MD, [facility] [email or web address] 08:55 AM Access obtained by percutaneous puncture. 5Fr 10cm Terumo Daykin sheath placed in right Femoral artery. [id number] [email or web address] 08:56 AM 0.035 145cm Navilyst 3mmJ wire [id number] [email or web address] 08:56 AM 5Fr FR 4 catheter inserted over the wire DN [email or web address] 08:57 AM RCA angiography performed in multiple views. [email or web address] 08:57 AM Recorded Pressure: Ao, HR=64, Condition=Condition 1 (Aorta) Ao 155/87/118 08:57 AM Coronary Dominance: right [email or web address] 08:58 AM Lesion found in Mid RCA. Pre Stenosis: 80 Pre MARYA Flow: [email or web address] 08:58 AM HR=71 bpm, RSSB=681/92 mmhg, SpO2=97.0 %, Resp=31 B/min, Comment=AF 08:58 AM SVG to the 1st Marginal angio performed in multiple views. [email or web address] 09:02 AM SVG to the RPDA angio performed in multiple views. [email or web address] 09:03 AM Lesion found in Right PDA. Pre Stenosis: 90 Pre MARYA Flow: [email or web address] 09:03 AM HR=67 bpm, BUOF=258/74 mmhg, SpO2=94.0 %, Resp=16 B/min, Comment=AF 09:03 AM Right Coronary, Right Posterior Descending Arteries with Right Posterolateral and Acute Marginal branches with 80 % stenosis. If graft is supplying this area, 90 % stenosis [email or web address] 09:03 AM Catheter removed [email or web address] 09:03 AM 5Fr IM catheter inserted over the wire [id number] [email or web address] 09:05 AM Left HEBER to the LAD angio performed in multiple views. [email or web address] 09:06 AM Catheter removed [email or web address] 09:08 AM HR=64 bpm, CKHW=442/79 mmhg, SpO2=94.0 %, Resp=26 B/min, Comment=AF 09:08 AM 5Fr FL 4 catheter inserted over the wire DN [email or web address] 09:08 AM LCA angiography performed in multiple views. [email or web address] 09:08 AM Recorded Pressure: Ao, HR=67, Condition=Condition 1 (Aorta) Ao 137/75/103 09:08 AM Time: 08:53LOC: 4 = Oriented but drowsy [email or web address] 09:09 AM Lesion found in LMCA. 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 Pre Stenosis: 95 Pre MARYA Flow: [email or web address] 09:10 AM Circumflex, Obtuse Marginal, Left Posterior Descending, and Left Posterolateral Coronary Arteries with 95 % stenosis. If graft is supplying this area, 0 % stenosis [email or web address] 09:11 AM Recorded Pressure: LV, HR=71, Condition=Condition 1 (Left Ventricle) LV 172/10/26 09:11 AM Recorded Pressure: LV, Ao, HR=81, Condition=Condition 1 (Left Ventricle) LV 159/8/20, (Aorta) Ao 166/64/105 09:13 AM HR=74 bpm, XFXA=641/97 mmhg, SpO2=95.0 %, Resp=27 B/min, Comment=AF 09:13 AM Catheter removed [email or web address] 09:14 AM PCI Status Urgent [email or web address] 09:14 AM Time: 09:14 Heparin 4000 units Intravenous Given by Anya Contreras RN [email or web address] 09:14 AM PCI Indication: PCI for high risk Non-STEMI or unstable angina [email or web address] 09:14 AM Sheath exchanged for a 6 Fr 11 cm Cordis Lorraine sheath [id number] [email or web address] 09:14 AM 6Fr IM Runway guide catheter was used to cannulate the PCI vessel successfully. reused? No [email or web address] 09:15 AM .014 [place] 190cm guide wire across target lesion- successful. reused? No [email or web address] 09:15 AM Time: 09:15 Versed 1 mg Intravenous Given by Anya Contreras RN [email or web address] 09:15 AM Time: 09:15 Fentanyl 25 mcg Intravenous Given by Anya Contreras RN [email or web address] 09:18 AM HR=73 bpm, BECZ=097/105 mmhg, SpO2=96.0 %, Resp=13 B/min, Comment=AF 09:19 AM Inflation device was opened. [email or web address] 09:19 AM 2.5 mm x 20 mm Emerge Monorail balloon across target lesion- successful. reused? No [email or web address] 09:20 AM At 09:20 the ACT was 184 seconds. [email or web address] 09:21 AM Balloon inflated @ 10 óscar for 24 seconds [email or web address] 09:21 AM .014 [place] 190cm guide wire across target lesion- successful. reused? No [email or web address] 09:21 AM Balloon inflated @ 10 óscar for 13 seconds [email or web address] 09:22 AM Balloon inflated @ 14 óscar for 17 seconds [email or web address] 09:22 AM Balloon inflated @ 14 óscar for 7 seconds [email or web address] 09:23 AM HR=61 bpm, VUVB=392/75 mmhg, SpO2=94.0 %, Resp=12 B/min, Comment=AF 09:23 AM Balloon catheter removed intact. [email or web address] 09:23 AM 3.0mm x 38mm Synergy drug-eluting stent across target lesion- successful Lot #[id number] [email or web address] 09:24 AM Time: 09:08LOC: 4 = Oriented but drowsy [email or web address] 09:24 AM Time: 09:09 Patient comfortable and pain free: Yes [email or web address] 09:28 AM HR=59 bpm, YQXP=922/76 mmhg, SpO2=95.0 %, Resp=12 B/min, Comment=AF 09:28 AM stent removed undeployed [email or web address] 09:29 AM 2.75 mm x 20mm NC Emerge balloon across target lesion- successful. reused? No [email or web address] 09:30 AM Balloon inflated @ 16 óscar for 21 seconds [email or web address] 09:30 AM Recorded Pressure: Ao, HR=65, Condition=Condition 1 (Aorta) Ao 116/68/89 09:30 AM Balloon inflated @ 20 óscar for 17 seconds [email or web address] 09:31 AM Balloon inflated @ 20 óscar for 14 seconds [email or web address] 09:31 AM Balloon inflated @ 20 óscar for 14 seconds [email or web address] 09:32 AM Balloon inflated @ 20 óscar for 16 seconds [email or web address] 09:33 AM HR=65 bpm, KQNL=659/83 mmhg, SpO2=94.0 %, Resp=13 B/min, Comment=AF 09:33 AM Balloon catheter removed intact. [email or web address] 09:34 AM stent reinserted [email or web address] 09:35 AM stent removed undeployed [email or web address] 09:36 AM 3.0mm x 24mm Synergy drug-eluting stent across target lesion- successful Lot #[id number] [email or web address] 09:38 AM HR=61 bpm, CJVY=103/80 mmhg, SpO2=93.0 %, Resp=14 B/min, Comment=AF 09:38 AM stent removed undeployed [email or web address] 09:39 AM 3.0 mm x 20mm NC Emerge balloon across target lesion- successful. reused? No [email or web address] 09:39 AM Time: 09:24 Patient comfortable and pain free: Yes [email or web address] 09:40 AM Balloon inflated @ 20 óscar for 23 seconds [email or web address] 09:41 AM Balloon inflated @ 20 óscar for 17 seconds [email or web address] 09:42 AM Balloon catheter removed intact. [email or web address] 09:43 AM HR=72 bpm, GSNX=510/93 mmhg, SpO2=93.0 %, Resp=14 B/min, Comment=AF 09:43 AM Guide wire removed intact. [email or web address] 09:44 AM Balloon inflated @ 14 óscar for 22 seconds [email or web address] 09:45 AM Stent reinserted 3.0x38 [email or web address] 09:47 AM Recorded Pressure: Ao, HR=68, Condition=Condition 1 (Aorta) Ao 172/94/130 09:47 AM Stent deployed @ 14 óscar for 14 seconds [email or web address] 09:48 AM HR=89 bpm, OJZV=500/110 mmhg, SpO2=95.0 %, Resp=20 B/min, Comment=AF 09:48 AM Stent delivery system removed intact. [email or web address] 09:50 AM Time: 09:49 Aggrastat 12.5mg/250ml 37.5 ml Intravenous Given by Anya Contreras RN Lazcano pump [email or web address] 09:51 AM Time: 09:50 Aggrastat 12.5mg/250ml 6.75 ml Intravenous Given by Anya Contreras RN Lazcano pump [email or web address] 09:51 AM 3.0mm x 16mm Synergy drug-eluting stent across target lesion- successful Lot #[id number] [email or web address] 09:53 AM HR=68 bpm, DNVE=585/85 mmhg, SpO2=95.0 %, Resp=17 B/min, Comment=AF 09:53 AM ACT out of range high [email or web address] 09:54 AM Time: 09:39LOC: 4 = Oriented but drowsy [email or web address] 09:54 AM Time: 09:39 Patient comfortable and pain free: Yes [email or web address] 09:55 AM Stent deployed @ 16 óscar for 22 seconds [email or web address] 09:58 AM HR=69 bpm, DLZV=363/93 mmhg, SpO2=97.0 %, Resp=30 B/min, Comment=AF 10:00 AM 3.5 mm x 6mm NC Emerge balloon across target lesion- successful. reused? No [email or web address] 10:00 AM Balloon inflated @ 20 óscar for 22 seconds [email or web address] 10:02 AM Balloon catheter removed intact. [email or web address] 10:02 AM Guide catheter removed intact. [email or web address] 10:02 AM Guide wire removed intact. [email or web address] 10:03 AM HR=84 bpm, HNCE=535/95 mmhg, SpO2=98.0 %, Resp=15 B/min, Comment=AF 10:03 AM Procedure completed at 10:03 [email or web address] 10:03 AM Sign out completed: Radiation Dose 1086.82 mGy Fluoro Time: 16.6 Isovue 370 - 200ml contrast 150 ml given by Daniel Wilson MD, [facility]. Complications: NoneCardiac Rehab Consult needed: YesConfirmed administered medications: Yes [email or web address] 10:03 AM Isovue 370 - 500ml,1 Bottle(s) used. [email or web address] 10:03 AM Sheath left in place to be pulled on floor/holding areaV+Pad [email or web address] 10:03 AM Post ECG Atrial Fibrillation [email or web address] 10:04 AM 10:04 Post Pulses Bilateral DP 1+ [email or web address] 10:04 AM Information taught Cardiac Cath and PCI [email or web address] 10:05 AM Time: 10:05 Plavix 600 mg Orally Given by Anya Contreras RN [email or web address] 10:06 AM Michelle Harvey RN Position: Nurse Time in: 10:06 [email or web address] 10:06 AM Education needs Procedure, Plan of Care, and Disease Process [email or web address] 10:06 AM Learning barriers :None [email or web address] 10:06 AM Education Methods Verbal [email or web address] 10:06 AM Education evaluation Able to repeat information [email or web address] 10:07 AM Site status No bleeding/hematoma - Rt Groin as reported by Mitra Reyez RT (R) at 10:06 [email or web address] 10:07 AM Opsite applied [email or web address] 10:07 AM Plavix, Effient or Brilinta given Yes [email or web address] 10:07 AM Delay to floor No [email or web address] 10:07 AM Family placed in consult room. [email or web address] 10:08 AM Patient out of room: 10:08 [email or web address] Complications Complication None Hemodynamics Pressures Site Systolic/A Wave Diastolic/V Wave Mean AO 155 87 118 AO 137 75 103 LV 172 10 26 LV 159 8 20 AO 166 64 105 AO 116 68 89 AO 172 94 130 Post Procedure Information Blood Pressure: 184/93 mmHg Rhythm: Atrial Fibrillation Post procedural instructions were given Site Checks Time Location Status Staff Sheath In? Note 10:06 AM Rt Groin No bleeding/hematoma Mitra Reyez RT (R) Pulses Time Site Pre-Procedure Post-Procedure Note 05/24/2017 8:06:00 AM Bilateral DP & PT 1+ 05/24/2017 8:06:00 AM Bilateral radial 2+ 10:04:00 AM Bilateral DP 1+ Updated by Jia Roa RN on 05/24/2017 10:14:39 AM electronically signed on 05/24/2017 10:15:14 AM with status of Final
[2017-05-25 05:54] LABS: Basophils % 0.1 %; Hematocrit 35.2 % (35.3-44.9); Hemoglobin 11.2 g/dL (11.5-15.4); Immature Granulocytes % 0.4 % (0-4); Lymphocytes # 1.7 K/mcL (0.6-4.6); Mean Corpuscular HGB Conc 31.8 g/dL (31.6-35.5); Mean Corpuscular Hemoglobin 29.5 pg (28.0-33.3); Mean Corpuscular Volume 92.6 fL (83.0-100.0); Mean Platelet Volume 10.8 fL (9.4-12.4); Monocytes # 0.6 K/mcL (0.0-1.3); Monocytes % 6.7 %; Platelet Count 192 K/mcL (140-400); Red Cell Distribution Width 13.2 % (11.5-14.5); Segmented Neutrophils % 74.8 %
[2017-05-25 06:07] LABS: Calcium 8.8 mg/dL (8.6-10.8); Potassium 4.1 mEq/L (3.5-4.5)
[2017-05-25] MEDS ORDERED: Aspirin Enteric Coated 81 MG Tablet PO SCH (09:00)
[2017-05-25] MEDS ORDERED: Isosorbide MONOnitrate (24 HR) 30 MG TAB.ER.24H PO SCH (09:30)
[2017-05-25 09:48] LABS: Bilirubin,Urine Negative (Negative); Blood,Urine Moderate (Negative); Clarity,Urine Cloudy (Clear); Color,Urine Yellow (Yellow); Glucose,Urine (UA) Normal (Normal); Ketones,Urine Negative (Negative); Leukocyte Esterase,Urine Large (Negative); Nitrite,Urine Negative (Negative); Protein,Urine Negative (Neg-Trace); Specific Gravity,Urine 1.024 (1.010-1.025); Urobilinogen,Urine Normal (Normal)
[2017-05-25 09:51] LABS: Bacteria,Urine Many per hpf (None-Few); Hyaline Casts,Urine None Seen per lpf (None-Few); Squamous Epithelial Cell,Urine Moderate per lpf (None-Few); WBC,Urine TNTC per hpf (0-3)
[2017-05-25] MEDS: 0.9 % Sodium Chloride 1,000 ML IVC SCH (10:35)
[2017-05-25] MEDS: Cholecalciferol (D-3) 1,000 UNIT TABLET PO SCH (10:35)
[2017-05-25] MEDS: Loratadine 10 MG TABLET PO SCH (10:35)
[2017-05-25] MEDS: Calcium Acetate 667 MG CAPSULE PO SCH ×2 (10:35→11:59)
[2017-05-25] MEDS: (Niacin [Niacin] 100 MG) PO SCH (10:36)
[2017-05-25] MEDS: Fluticasone Propionate Nasal 50 MCG/SPRAY BOTTLE NS SCH (10:38)
--- NOTE | 2017-05-25 10:59 | Cardiology Progress Note ---
Date of Encounter: 05/25/17 Time of Encounter: 10:57 Assessment and Plan (1) NSTEMI (non-ST elevated myocardial infarction) Current Visit: Yes Status: Acute Troponins 0.32, 0.45, 0.29. LHC yesterday revealed her JACKSON is down, with 95% [place] left main disease. LAD territory is small, but not protected since these areas are occluded. She received PCI/GREGOR to [place] RCA system due to SVG-distal RCA disease. Final report pending. Recommend DAPT (ASA and Plavix) uninterrupted x 1 year. Pt verbalizes understanding. Pt ambulated, denies any chest pain or dyspnea, reports feeling well. Continue BB and Statin. Recommend close outpt follow-up to re-evaluate and consider staged Left main rotablator and PCI if warranted. Will coordinate follow-up in 5-7 days. Imdur started at 30mg daily. Echo shows EF 45%, mild LV systolic dysfunction, mild LVDD, mild TR and mild phtn. Cardiology signing off. Reconsult PRN. (2) CAD (coronary artery disease), [place] coronary artery Current Visit: Yes Status: Chronic 3V CABG ([facility]) 10/27/2015: JACKSON to LAD, SVG to OM, SVG to distal RCA. LHC findings yesterday as above with PCI to RCA. ASA, Plavix, Statin, BB. Qualifiers: [place] vs. transplanted heart: [place] heart Associated angina: with unstable angina Qualified Code(s): I25.110 - Atherosclerotic heart disease of [place] coronary artery with unstable angina pectoris (3) Ischemic cardiomyopathy Current Visit: Yes Status: Acute Only mild LV systolic dysfunction, EF 45%, but previously normal 10/2015. S/P PCI to RCA yesterday. Continue BB. Will add low dose JOSE-I. Euvolemic on exam. Discussion w patient/family: The assessment and plan as outlined above was discussed with the patient and/or family members who expressed understanding and agreement. All questions were answered. Thank you for involving us in the care of your patient. Please call with any questions. I will discuss all the above with Dr. Ha and make changes as necessary. Subjective Principal diagnosis: NSTEMI Interval history: LHC yesterday showed JACKSON is down and her [place]anche LMCA has 95% stenosis. She had a lesion in her SVG-distal RCA, no [place] RCA was stented. Final report still pending. Pt denies chest pain or dyspnea this morning. Reports feeling well. Echo shows EF 45%, mild LV systolic dysfunction, mild diastolic dysfunction, mild TR, mild phtn. Objective Vital Signs, Last 4 Hours Temp Pulse Resp BP Pulse Ox 05/25/17 07:37 98 F 60 18 133/64 95 05/25/17 07:29 60 Vital Signs Temp Pulse Pulse Resp BP Pulse Ox 05/25/17 07:37 98 F 60 18 133/64 95 05/25/17 07:29 60 05/25/17 04:12 58 05/25/17 04:00 97.7 F 57 18 143/74 95 05/24/17 23:55 60 05/24/17 23:00 98.2 F 67 16 131/63 96 05/24/17 19:45 63 05/24/17 18:48 97.5 F L 91 12 118/63 94 05/24/17 17:00 67 125/55 05/24/17 16:30 66 126/61 05/24/17 15:30 66 134/62 05/24/17 15:17 97.8 F 66 139/64 94 05/24/17 15:15 67 95 05/24/17 15:00 139/79 05/24/17 14:30 69 148/68 05/24/17 14:00 64 153/77 05/24/17 13:45 61 135/78 05/24/17 13:30 61 143/78 05/24/17 13:15 62 64 153/73 05/24/17 13:00 64 64 107/81 96 05/24/17 12:55 64 64 122/86 96 05/24/17 12:50 62 62 151/84 96 05/24/17 12:45 62 62 16 145/78 96 05/24/17 12:40 64 64 137/76 96 05/24/17 12:35 62 62 137/76 96 05/24/17 12:15 64 63 137/79 05/24/17 12:00 64 143/74 05/24/17 11:45 64 147/73 05/24/17 11:30 65 146/76 05/24/17 11:26 97.9 F 08/07/17 11:15 65 16 136/69 90 Intake and Output 05/24/17 05/25/17 05/25/17 23:59 07:59 15:59 Intake Total 1000 / 1000 500 / 500 1360 / 1360 Balance 1000 / 1000 500 / 500 1360 / 1360 Intake: IV Fluids 1000 / 1000 1000 / 1000 0.9 % Sodium Chloride 1, 1000 / 1000 1000 / 1000 000 ML @ 100 mls/hr IVC . Q10H [facility]AL[facility] Rx#:[id number] Oral 500 / 500 360 / 360 Other: Meal Breakfast Percent of Meal Consumed 100% # Voids 1 Weight 72.2 kg Patient Weight 05/25/17 23:59 Weight 72.2 kg General: Conversant, No Apparent Distress HEENT: Atraumatic, Normocephaly, Mucus Membranes Moist Neck: No JVD, Normal carotid pulses Cardiac: Reg Rate and Rhythm, Normal S1 and S2, No Murmur Lungs: Normal Breath Sounds, No Wheeze, Rales, Rhonchi Neuro: Alert and responsive, No focal deficits noted Abdomen: Soft, Non-Tender Skin: Other (right femoral access site healing well. No Bleeding, hematoma or ecchymosis noted.) Musculoskeletal: No Chest Wall Tenderness Extremities: No Clubbing, No Cyanosis, No Edema, Normal Pulses Results 05/25/17 05:41 05/25/17 05:41 Lab Results 05/24/17 05/25/17 05/25/17 16:48 05:41 05:41 WBC 9.3 Hgb 11.2 L Hct 35.2 L Plt Count 192 APTT 23.9 L D Sodium 141 Potassium 4.1 Chloride 111 H Carbon Dioxide 23 BUN 24 H Creatinine 1.08 Glucose 114 H Calcium 8.8 Short CBC 05/25/17 Range/Units 05:41 WBC 9.3 (4.3-11.1) K/mcL Hgb 11.2 L (11.5-15.4) g/dL Hct 35.2 L (35.3-44.9) % Plt Count 192 (140-400) K/mcL Neutrophils # 7.0 (1.6-8.9) K/mcL BMP 05/25/17 Range/Units 05:41 Sodium 141 (136-145) mEq/L Potassium 4.1 (3.5-4.5) mEq/L Chloride 111 H (98-109) mEq/L Carbon Dioxide 23 (19-29) mEq/L BUN 24 H (7-20) mg/dL Creatinine 1.08 (0.57-1.11) mg/dL Glucose 114 H (70-99) mg/dL Calcium 8.8 (8.6-10.8) mg/dL Urine 05/25/17 Range/Units 09:00 Urine Color Yellow (Yellow) Urine Clarity Cloudy A (Clear) Urine pH 6.0 (5.0-8.0) pH Units Ur Specific [place] 1.024 (1.010-1.025) Urine Protein Negative (Neg-Trace) mg/dL Urine Glucose (UA) Normal (Normal) mg/dL Impressions Echocardiogram 05/23/17 11:08 Impressions: LVEF 45%. Normal LV chamber size. Mild segmental left ventricular systolic dysfunction. Mild left ventricular diastolic dysfunction. Normal right ventricular structure and function. No evidence of PFO with agitated saline contrast. Mild tricuspid regurgitation. Mild pulmonary hypertension. Estimated RVSP is 43 mmHg. Left Ventricular Wall Motion: Rest Echo Findings The apex, apical inferior and apical septal bhat were hypokinetic. All other wall segments showed normal motion. Findings: Study Quality * Technically adequate exam. ECG Findings * Normal sinus rhythm. Left Ventricle * LVEF 45%. * Normal LV chamber size. * Mild segmental left ventricular systolic dysfunction. * Mild left ventricular diastolic dysfunction. Right Ventricle * Normal right ventricular structure and function. Left Atrium * Mildly dilated left atrium. Right Atrium * Mildly dilated right atrium. Interatrial Septum * No evidence of PFO with agitated saline contrast. Aortic Valve * Aortic valve not well visualized. * Grossly appears to be trileaflet aortic valve. * No aortic regurgitation. * No aortic stenosis. Mitral Valve * Normal mitral valve structure and function. * No mitral regurgitation. * No mitral stenosis. Tricuspid Valve * Normal tricuspid valve structure. * Mild tricuspid regurgitation. * Mild pulmonary hypertension. * Estimated RVSP is 43 mmHg. * Estimated RA pressure is 5 mmHg. Pulmonic Valve * Normal pulmonic valve structure and function. * No pulmonic regurgitation. Aorta * Normally sized aortic root. Pericardium * The pericardium appears normal. IVC * Normal IVC dimensions and inspiratory collapse. Pulmonary Artery * Normal visualized portions of the main pulmonary artery. Active Medications Acetaminophen (Tylenol) 650 mg PO Q6HR PRN PRN Reason: Mild Pain (1-3) Stop: 02/05/18 09:12 Last Admin: 05/23/17 11:23 Dose: 650 mg Hydrocodone Bitart/Acetaminophen ([place] 5-325 Mg) 1 tab PO Q4HR PRN PRN Reason: Moderate Pain (4-6) Stop: 11/22/17 09:12 Last Admin: 05/23/17 15:21 Dose: 1 tab Aspirin (Aspirin Ec) 81 mg PO DAILY [facility] Stop: 11/24/17 09:01 Last Admin: 05/25/17 10:35 Dose: 81 mg Atorvastatin Calcium (Lipitor) 40 mg PO HS [facility] Stop: 11/22/17 21:01 Last Admin: 05/24/17 21:22 Dose: 40 mg Calcium Acetate (Phos-Lo) 667 mg PO TIDWM [facility] Stop: 11/23/17 08:01 Last Admin: 05/25/17 10:35 Dose: 667 mg Clopidogrel Bisulfate (Plavix) 75 mg PO DAILY [facility] Stop: 11/24/17 09:01 Last Admin: 05/25/17 10:35 Dose: 75 mg Docusate Sodium (Colace) 100 mg PO DAILY [facility] PRN Reason: Protocol Stop: 11/23/17 09:01 Last Admin: 05/25/17 10:35 Dose: 100 mg Fluticasone Propionate (Flonase) 50 mcg NS DAILY [facility] PRN Reason: Protocol Stop: 11/23/17 09:01 Last Admin: 05/25/17 10:38 Dose: 50 mcg Sodium Chloride (0.9 % Sodium Chloride) 1,000 mls @ 100 mls/hr IVC .Q10H [facility] Stop: 11/23/17 10:16 Last Admin: 05/25/17 10:35 Dose: 100 mls/hr Isosorbide Mononitrate (Imdur) 30 mg PO DAILY [facility] Stop: 11/24/17 09:31 Last Admin: 05/25/17 10:38 Dose: 30 mg Loratadine (Claritin) 10 mg PO DAILY [facility] Stop: 11/23/17 09:01 Last Admin: 05/25/17 10:35 Dose: 10 mg Metoprolol Tartrate (Lopressor) 50 mg PO BID [facility] Stop: 11/22/17 21:01 Last Admin: 05/25/17 10:35 Dose: 50 mg Morphine Sulfate (Morphine Sulfate) 2 mg IVP Q4HR PRN PRN Reason: Severe Pain (7-10) Stop: 11/22/17 09:12 Last Admin: 05/24/17 11:06 Dose: 2 mg Naloxone HCl (Narcan) 0.4 mg IVP Q2MIN PRN PRN Reason: Opioid Reversal Stop: 11/22/17 09:12 Nitroglycerin (Nitroglycerin) 0.4 mg SL Q5MIN PRN PRN Reason: Chest Pain Stop: 11/22/17 04:21 Last Admin: 05/23/17 05:05 Dose: 0.4 mg Omeprazole (Prilosec) 40 mg PO DAILY@0630 [facility] PRN Reason: Protocol Stop: 11/25/17 06:31 Ondansetron HCl (Zofran) 4 mg IVP Q8HR PRN PRN Reason: Nausea And Vomiting Stop: 11/22/17 09:12 Pharmacy Profile Note (Patient Taking Own Medication) 0 each PO DAILY [facility] Stop: 11/23/17 09:01 Last Admin: 05/25/17 10:36 Dose: Not Given Potassium Chloride (Potassium Chloride) 10 meq PO DAILY [facility] Stop: 11/23/17 09:01 Last Admin: 05/25/17 10:35 Dose: 10 meq Vitamin D (Vitamin D) 1,000 unit PO DAILY [facility] Stop: 11/23/17 09:01 Last Admin: 05/25/17 10:35 Dose: 1,000 unit Vitamin E (Vitamin E) 400 unit PO DAILY [facility] Stop: 11/23/17 09:01 Last Admin: 05/25/17 10:36 Dose: 400 unit - Imaging and Cardiology Echo: report reviewed Cardiac cath: report reviewed - EKG Interpretation EKG results cardiology: other (12 hr tele AVG HR 61, no significant pauses or arrhythmias.) Consult Discharge Plan - Plan Referrals: Aristeo Whiet MD [Primary Care Provider] - 05/31/17 1:00 pm () Jered Modi DO [Partnered Physician] - 06/17/17 11:30 am
--- NOTE | 2017-05-25 11:17 | Invasive Diagnostic Lab ---
Name: Tali Phipps Date of Study: 05/24/2017 Date: 1935 Ht: 163.0 cm /64.2 in Medical Record#: [id number] Age: 81 Wt: 75. kg / 165.35 lb Account/Order#: [id number] Gender: Female BSA: 1.81 Order #: [id number] Fluoro Dose: 1087 mGy BMI: 28.23 Procedure Physician: Daniel Wilson MD, [facility] Referring MD: Referring MD: Procedures Performed: LEFT HEART CATH W/ GRAFTS Stent w/ PTCA Single Major Vessel Indications: Non-Stemi Impressions: There is severe three vessel coronary artery disease. Patient had successful PTCA/Drug-Eluting Stent placement in then RCA. S/P CABG 2 of 3 patent bypass grafts. Recommendations: Plavix (Clopidogrel) 75 mg PO Daily. Optimal medical therapy of patient's disease. Aggressive risk factor modification. History/Risk Factors: a fib CAD GERD Hypertension Dyslipidemia Prior [place] Previous CABG Procedure Access obtained in the right Femoral artery by percutaneous puncture Patient had successful PTCA/Drug-Eluting Stent placement in the RCA. Complications: None Contrast: Isovue 150ml Hemodynamics: Pressures Site Systolic/ A Wave Diastolic/ V Wave End Diastolic/ Mean HR AO 155 87 118 64 AO 137 75 103 67 LV 172 10 26 71 LV 159 8 20 115 AO 166 64 105 63 AO 116 68 89 65 AO 172 94 130 68 Coronary Dominance: right Lesion Findings/Interventions * Left Main Coronary Artery There is a 95% stenosis in the LMCA. * Left Anterior Descending The LAD has a proximal 70% stenosis The 1st Diagonal is angiographically free of disease. The Left Anterior Descending is small in size. * Circumflex There is a 95% stenosis in the Proximal Circumflex. * Right Coronary Artery There is a 78 mm long, 80% stenosis in the proximal to distal RCA. The lesion has no thrombus present. An intervention was performed on the Mid RCA with a final stenosis of 0%. There were no lesion complications. The final MARYA flow was 3. Additional Findings: Grafts * The saphenous vein graft to the 1st Marginal is patent. * The saphenous vein graft to the Right PDA is patent with 95 % distal stenosis * The left internal mammary graft to the Mid LAD is occluded. Interventional Device(s) Vessel Segment Type Name Diameter (mm) Length (mm) Mid RCA Drug Eluting Stent Synergy 3 24 Mid RCA Balloon NC Emerge 3.5 6 Mid RCA Balloon NC Emerge 3 20 Mid RCA Balloon Emerge Monorail 2.5 20 Mid RCA Drug Eluting Stent Synergy 3 38 Mid RCA Balloon NC Emerge 2.75 20 Mid RCA Drug Eluting Stent Synergy 3 16 Updated by Jia Roa RN on 05/24/2017 10:10:44 AM Daniel Wilson MD, FACC electronically signed on 05/25/2017 11:13:00 AM with status of Final
--- NOTE | 2017-05-25 15:45 | Discharge Summary ---
Date of Encounter: 05/25/17 Time of Encounter: 15:34 - Discharge Diagnosis (1) NSTEMI (non-ST elevated myocardial infarction) Priority: Primary Status: Acute (2) CAD (coronary artery disease), [place] coronary artery Priority: Primary Status: Chronic Qualifiers: [place] vs. transplanted heart: [place] heart Associated angina: with unstable angina Qualified Code(s): I25.110 - Atherosclerotic heart disease of [place] coronary artery with unstable angina pectoris (3) UTI (urinary tract infection) Priority: Secondary Status: Acute Qualifiers: Qualified Code(s): N39.0 - Urinary tract infection, site not specified (4) GERD (gastroesophageal reflux disease) Priority: Secondary Status: Chronic Qualifiers: Esophagitis presence: esophagitis presence not specified Qualified Code(s) : K21.9 - Gastro-esophageal reflux disease without esophagitis (5) HLD (hyperlipidemia) Priority: Secondary Status: Chronic Qualifiers: Hyperlipidemia type: pure hypercholesterolemia Qualified Code(s): E78.00 - Pure hypercholesterolemia, unspecified; E78.0 - Pure hypercholesterolemia (6) HTN (hypertension) Priority: Secondary Status: Chronic Qualifiers: Hypertension type: essential hypertension Qualified Code(s): I10 - Essential (primary) hypertension (7) Ischemic cardiomyopathy Priority: Secondary Status: Acute - Discharge Medications Prescriptions: Cephalexin [Keflex] 500 mg PO TID #12 capsule Clopidogrel [Plavix] 75 mg PO DAILY #30 tab Isosorbide MONOnitrate (24 HR) [Imdur] 30 mg PO DAILY #30 Lisinopril [Zestril] 2.5 mg PO DAILY #30 tab Home Medications: Aspirin 81 mg PO DAILY 03/25/16 [History] Atorvastatin [Lipitor] 40 mg PO HS 03/25/16 [History] Calcium Acetate [Phos-LO] 667 mg PO TIDWM 03/25/16 [History] Cetirizine HCl [Zyrtec] 10 mg PO DAILY 4 Days 03/25/16 [Rx] Docusate [Colace] 100 mg PO DAILY 03/25/16 [History] Furosemide [Lasix] 20 mg PO DAILY 03/25/16 [History] Metoprolol [Lopressor] 50 mg PO BID 03/25/16 [History] Multivitamin [Multi-Day Vitamins] 1 tab PO DAILY 03/25/16 [History] Niacin [Niacin] 100 mg PO DAILY 03/25/16 [History] Pantoprazole Sodium [Protonix] 40 mg PO DAILY 03/25/16 [History] Vitamin E Acid Succinate [Vitamin E] 400 units PO DAILY 03/25/16 [History] Cholecalciferol (Vitamin D3) [Vitamin D] 1,000 unit PO DAILY 05/23/17 [History] Fluticasone Propionate Nasal [Flonase] 50 mcg NS DAILY 05/23/17 [History] Potassium Chloride [Klor-Con 10] 10 meq PO DAILY 05/23/17 [History] Cephalexin [Keflex] 500 mg PO TID #12 capsule 05/25/17 [Rx] Clopidogrel [Plavix] 75 mg PO DAILY #30 tab 05/25/17 [Rx] Isosorbide MONOnitrate (24 HR) [Imdur] 30 mg PO DAILY #30 05/25/17 [Rx] Lisinopril [Zestril] 2.5 mg PO DAILY #30 tab 05/25/17 [Rx] Allergies/Adverse Reactions: Allergies Sulfa (Sulfonamide Antibiotics) Allergy (Verified 03/25/16 10:14) unknown Iodinated Contrast- Oral and IV Dye [Iodinated Contrast Media - IV Dye] Adverse Reaction (Verified 03/25/16 10:14) Swelling of Lip/Tongue/Throat Procedures/tests Complete & Pending: Procedures Performed prior 72 hours Category Date Time Status CL Cardiac Catheterization [CL] Routine Cable Engineer 05/24/17 07:49 Completed ECG 12 lead ECG [ECG] Routine Y 05/23/17 03:21 Completed ECG 12 lead ECG [ECG] Routine Y 05/24/17 10:11 Ordered EKG [ECG 12 lead ECG] [ECG] AM 0600 Y 05/24/17 06:00 Ordered EKG [ECG 12 lead ECG] [ECG] Stat Y 05/23/17 10:36 Completed EV echocardiogram Routine Y 05/23/17 11:08 Completed Date of admission: 05/23/17 09:12 Primary care physician: Aristeo White MD Consults: 05/23/17 09:16 Consult to Cardiology [CONS] Routine Comment: Consulting Provider: [facility] [place] Reason for Consult: Chest pain with history of 95-99% blockages Call Completed: Yes 05/24/17 07:49 Consult to Cardiac Rehabilitation-Phase1 [CONS] Routine Comment: Reason for Consult: NSTEMI Call Completed: Yes 05/25/17 11:52 Consult to Visual Display Associate [CONS] Routine Reason for SW Consult: discharge planning - Patient Status Disposition: Home Health Service Condition: Good - Discharge Instructions Follow Up With: Aristeo White MD [Primary Care Provider] - 05/31/17 1:00 pm () Jered Modi DO [Partnered Physician] - 06/17/17 11:30 am Forms: ED Satisfaction Letter Additional Instructions: f/u with PCP in one week f/u with Cardiology in 2 weeks Please return back to nearest ER ANA if you ever get CP / SOB - Diet and Activity Activity: increase activity as tolerated Diet: low salt diet Hospital course: Mrs. Phipps is a 81 year old female with PMH of CAD, GERD, hyperlipidemia, hypertension, NE, CHF and osteoporosis who presented to ED with chief complaint of chest pain which she states began approximately 1 AM with exertion when she tried to get her up to go to the bathroom. Patient describes the pain as a dull ache in the central chest area that radiates to her left neck and behind her head as well as between both shoulder blades. She reports this chest pain feels similar to the chest pain prior to her triple bypass surgery in 2016. Pt was admitted with acute NSTEMI and started her on Heparin gtt. Cardiology evaluated the pt and did C y/d which showed severe three vessel coronary artery disease, had successful PTCA/Drug-Eluting Stent placement in the RCA. S/P CABG 2 of 3 patent bypass grafts. At this point pt was continued on DAPT therapy with ASA and Plavix, B adrian Metoprolol and low dose ACEI, also added Imdur at 30mg. Pt denied any CP since y/d. Cardiology recommend to d/ c her home today and had to f/u with cardiology as an out pt to re-evaluate and consider staged Left main rotablator and PCI if warranted. She also happened to have abnormal UA with too many bacteria, so gave her 1 dose of Roce[place]pin here and discharged her home with Keflex 500mg TID x 4 more days. - Time Spent with Patient Total time spent providing and/or coordinating discharge services: - Constitutional Vitals: Temp Pulse Resp BP Pulse Ox 97.6 F 63 18 125/63 96 05/25/17 11:15 05/25/17 11:45 05/25/17 11:15 05/25/17 11:15 05/25/17 11:15 General appearance: Present: cooperative, A&O X 3, pleasant, no acute distress, answers questions appropriately - Head Head exam: Present: atraumatic, normal inspection - Respiratory Respiratory exam: Present: decreased breath sounds. Absent: rales, respiratory distress, rhonchi, wheezes - Cardiovascular Cardiovascular exam: Present: RRR, +S1, +S2. Absent: diastolic murmur, gallop, rubs, systolic murmur - GI/Abdominal GI/Abdominal exam: Present: normal bowel sounds, soft, no peritoneal signs. Absent: distended, tenderness - Extremities Exam Extremities exam: Absent: calf tenderness, pedal edema, tenderness - Neurological Exam Neurological exam: Present: alert, oriented X3 - Psychiatric Psychiatric exam: Present: normal affect, normal mood
[2017-05-25 15:48] VITALS: BP 115/56
--- NOTE | 2017-05-25 16:02 | Physician Discharge Referral ---
Home Health/Hosp Referral Info Transfer to: Home Health Provider in Charge Post Discharge: PCP - Diagnosis (1) NSTEMI (non-ST elevated myocardial infarction) Status: Acute (2) CAD (coronary artery disease), [place] coronary artery Status: Chronic (3) UTI (urinary tract infection) Status: Acute (4) GERD (gastroesophageal reflux disease) Status: Chronic (5) HLD (hyperlipidemia) Status: Chronic (6) HTN (hypertension) Status: Chronic (7) Ischemic cardiomyopathy Status: Acute - Respiratory Orders Smoking Cessation: Smoking cessation has been advised. For more information, call the [place] Tobacco Quit Line at 0-189-[facility]UH-NOW. - Services Needed Following services are medically necessary services: Nursing - Transfer Medications Prescriptions: Cephalexin [Keflex] 500 mg PO TID #12 capsule Clopidogrel [Plavix] 75 mg PO DAILY #30 tab Isosorbide MONOnitrate (24 HR) [Imdur] 30 mg PO DAILY #30 Lisinopril [Zestril] 2.5 mg PO DAILY #30 tab Home Medications: Aspirin 81 mg PO DAILY 03/25/16 [History] Atorvastatin [Lipitor] 40 mg PO HS 03/25/16 [History] Calcium Acetate [Phos-LO] 667 mg PO TIDWM 03/25/16 [History] Cetirizine HCl [Zyrtec] 10 mg PO DAILY 4 Days 03/25/16 [Rx] Docusate [Colace] 100 mg PO DAILY 03/25/16 [History] Furosemide [Lasix] 20 mg PO DAILY 03/25/16 [History] Metoprolol [Lopressor] 50 mg PO BID 03/25/16 [History] Multivitamin [Multi-Day Vitamins] 1 tab PO DAILY 03/25/16 [History] Niacin 100 mg PO DAILY 03/25/16 [History] Pantoprazole Sodium [Protonix] 40 mg PO DAILY 03/25/16 [History] Vitamin E Acid Succinate [Vitamin E] 400 units PO DAILY 03/25/16 [History] Cholecalciferol (Vitamin D3) [Vitamin D3] 1,000 unit PO DAILY 05/23/17 [History] Fluticasone Propionate Nasal [Flonase] 50 mcg NS DAILY 05/23/17 [History] Potassium Chloride [Klor-Con 10] 10 meq PO DAILY 05/23/17 [History] Cephalexin [Keflex] 500 mg PO TID #12 capsule 05/25/17 [Rx] Clopidogrel [Plavix] 75 mg PO DAILY #30 tab 05/25/17 [Rx] Isosorbide MONOnitrate (24 HR) [Imdur] 30 mg PO DAILY #30 05/25/17 [Rx] Lisinopril [Zestril] 2.5 mg PO DAILY #30 tab 05/25/17 [Rx] Allergies/Adverse Reactions: Allergies Sulfa (Sulfonamide Antibiotics) Allergy (Verified 03/25/16 10:14) unknown Iodinated Contrast- Oral and IV Dye [Iodinated Contrast Media - IV Dye] Adverse Reaction (Verified 03/25/16 10:14) Swelling of Lip/Tongue/Throat Certification: Further, I certify that my clinical findings support that this patient is homebound (i.e. absences from home require considerable and taxing effort and are for medical reasons or moravian services or infrequently or short duration when for other reasons) because: Homebound Reason: Patient requires assistance of a person or device to safely leave home Attestation: My signature below is to certify that this patient is under my care and that I, or nurse practitioner, or a physician's engineer first assistant working with me, has a face-to -face encounter with this patient.
== END 2017-05-25 16:50 | disposition home health service (06) | DRG 247 ==
LOC: 3BNU 03:12 → EMEROO 03:12 → 3BNU 07:26 → SUATTDRO 09:12 → 3BNU 12:04 → 2NNU 05-24 09:27
PROVIDERS: ADMIT Hospitalist; ATTEND Internal Medicine

== ENCOUNTER 2017-07-16 13:15 | Observation (INO) ==
[2017-07-16] MEDS ORDERED: 0.9 % Sodium Chloride 1,000 ML IVC ONE (13:35)
--- NOTE | 2017-07-16 13:42 | Emergency Department Note ---
START Narrative - START START: I examined this patient and my medical decision-making was reviewed with the emergency medicine resident. I agree with the documented findings, disposition and treatment plan as described except to the extent set forth below. Patient seen with emergency medicine resident Dr. Zion Cisneros, Please see a copy of his note for details of the H&P, ED evaluation, management and disposition. I have independently evaluated the patient and confirmed appropriate portions of the history and physical exam. Briefly: A 81-year-old female presents with family member symptomatic bradycardia home health care nurse reports heart rate in the low 40s. Patient feels lightheaded. Patient had a cardiac catheterization resulting in a stent placed about 6 weeks ago. Patient says she was started on medicine, and she feels very very tired. Patient's EKG here shows sinus rhythm at about 60 bpm without acute ischemic changes. Patient will troponin chest x-ray screening labs. Admission anticipated for observation and cardiology consultation. Prior to 30 minutes critical care service for this patient. Disposition pending
[2017-07-16 13:54] LABS: Basophils % 0.7 %; Eosinophils # 0.1 K/mcL (0.0-0.6); Eosinophils % 2.5 %; Hemoglobin 12.5 g/dL (11.5-15.4); Immature Granulocytes % 0.2 % (0-4); Lymphocytes # 1.8 K/mcL (0.6-4.6); Lymphocytes % 31.9 %; Mean Corpuscular HGB Conc 32.1 g/dL (31.6-35.5); Mean Corpuscular Hemoglobin 29.3 pg (28.0-33.3); Mean Corpuscular Volume 91.3 fL (83.0-100.0); Mean Platelet Volume 10.1 fL (9.4-12.4); Monocytes # 0.7 K/mcL (0.0-1.3); Monocytes % 12.3 %; Neutrophils # 2.9 K/mcL (1.6-8.9); Platelet Count 203 K/mcL (140-400); Red Blood Count 4.27 M/mcL (3.82-4.97); Red Cell Distribution Width 13.7 % (11.5-14.5); Segmented Neutrophils % 52.4 %
[2017-07-16 14:06] LABS: Calcium 9.8 mg/dL (8.6-10.8); Potassium 4.4 mEq/L (3.5-4.5)
--- NOTE | 2017-07-16 14:45 | Emergency Department Note ---
Disposition Clinical Impression: Symptomatic bradycardia, Chest pain Disposition: Admitted As Inpatient Condition: Good Referrals: Aristeo White MD [Primary Care Provider] - Time of Disposition: 14:46 General Adult HPI - General Chief complaint: ED Shortness of Breath/Dyspnea Stated complaint: Low HR// heart hx Time Seen by Provider: 07/16/17 13:25 Source: patient, family Mode of arrival: wheelchair Limitations: no limitations Nursing Notes Reviewed: Yes Vital Signs Reviewed: Yes - History of Present Illness HPI Narrative: Patient presents to the ED with the chief complaint of a low heart rate and generalized malaise. Patient reports that she has a history of triple bypass in 2012, and recent stent placement about 6 weeks ago due to a heart attack. Reports that she was placed on a new medication, which she thinks was a beta adrian. Reports that since then she has been having intermittent episodes of bradycardia and a generalized feeling of weakness and fatigue. All over. No focal concerns. She has been having some intermittent chest pressure, but is not similar to her previous GA and has not had any chest pain in the last 24 hours. She states that her home health care nurse visited her this morning and her heart rate was 46 and she was symptomatic from this, so she sent her here. Pain Scale: 0 - Related Data Home Medications Medication Instructions Recorded Confirmed Aspirin 81 mg PO DAILY 03/25/16 07/16/17 Atorvastatin [Lipitor] 40 mg PO HS 03/25/16 07/16/17 Docusate [Colace] 100 mg PO DAILY 03/25/16 07/16/17 Furosemide [Lasix] 20 mg PO DAILY PRN 03/25/16 07/16/17 Multivitamin [Multi-Day Vitamins] 1 tab PO DAILY 03/25/16 07/16/17 Niacin 100 mg PO DAILY 03/25/16 07/16/17 Pantoprazole Sodium [Protonix] 40 mg PO DAILY 03/25/16 07/16/17 Vitamin E Acid Succinate [Vitamin 400 units PO DAILY 03/25/16 07/16/17 E] Cholecalciferol (Vitamin D3) 1,000 unit PO DAILY 05/23/17 07/16/17 [Vitamin D3] Fluticasone Propionate Nasal 50 mcg NS DAILY 05/23/17 07/16/17 [Flonase] Potassium Chloride [Klor-Con 10] 10 meq PO DAILY PRN 05/23/17 07/16/17 Lisinopril [Zestril] 5 mg PO DAILY 07/16/17 07/16/17 Previous Rx's Medication Instructions Recorded Clopidogrel [Plavix] 75 mg PO DAILY #30 tab 05/25/17 Isosorbide MONOnitrate (24 HR) 30 mg PO DAILY #30 05/25/17 [Imdur] Cetirizine HCl [Zyrtec] 10 mg PO DAILY #4 capsule 07/05/17 Allergies Allergy/AdvReac Type Severity Reaction Status Date / Time Sulfa (Sulfonamide Allergy unknown Verified 07/16/17 13:19 Antibiotics) Iodinated Contrast- Oral and AdvReac Swelling Verified 07/16/17 13:19 IV Dye of [Iodinated Contrast Media - Lip/Tongue/Throat IV Dye] Past Medical History - Past Medical History Attestation: Yes The following information was validated with the patient. Source: patient Medical history: Reports: atrial fibrillation, coronary artery disease, GERD, hyperlipidemia, hypertension, myocardial infarction, osteoporosis Surgical history: Reports: appendectomy, cholecystectomy, coronary bypass (CABG) , hysterectomy (Total), other Psychiatric history: Reports: no psych history HEAD STILL OPERATOR history: Reports: no HEAD STILL OPERATOR history - Social History Smoking Status: Never smoker Smokeless Tobacco Status: No Alcohol use: Reports: none Drug use: Reports: none Physical Exam - General Limitations: no limitations General appearance: alert, in no apparent distress - Head Head exam: atraumatic, normocephalic, normal inspection - Eye Eye exam: Present: normal appearance, PERRL, EOMI - ENT ENT exam: normal exam, normal oropharynx, mucous membranes moist - Chest Chest inspection: Present: normal inspection, symmetric chest wall rise - Respiratory Respiratory exam: Present: normal lung sounds bilaterally - Cardiovascular Cardiovascular exam: Present: bradycardia, systolic murmur - Abdominal Exam Abdominal exam: Present: soft, Non-Tender. Absent: tenderness, distention, guarding, rebound, rigidity - Extremities Exam Extremities exam: Present: normal inspection, full ROM - Neurological Exam Neurological exam: Present: alert, oriented X3, CN II-XII intact - Expanded Neurological Exam Patient oriented to: Present: person, place, time Speech: Present: fluid speech Cranial nerves: EOM function (II, III, IV, ): Normal, facial sensation (V): Normal, facial palsy (VII): Normal, spinal accessory function (XI): Normal, tongue deviation (XII): Normal Cerebellar function: finger to nose: Normal Motor strength - LUE: 5/5 Motor strength - RUE: 5/5 Motor strength - LLE: 5/5 Motor strength - RLE: 5/5 Upper motor neuron exam: al neglect: Absent bilaterally, pronator drift: Absent bilaterally Sensory exam upper extremity: light touch: Normal Sensory exam lower extremity: light touch: Normal Coma Scale Eye Opening: Spontaneous Coma Scale Motor Response: Obeys Commands Coma Scale Verbal Response: Oriented Coma Scale Total: 15 - Psychiatric Psychiatric exam: Present: normal affect, normal mood - Skin Skin exam: Present: warm, dry, intact, normal color Course Vital Signs Temperature 97.5 F L 07/16/17 13:20 Pulse Rate 68 07/16/17 13:20 Respiratory Rate 16 07/16/17 13:20 Blood Pressure 175/76 07/16/17 13:20 O2 Sat by Pulse Oximetry 07/16/17 13:20 Temperature 97.5 F L 07/16/17 13:20 Pulse Rate 07/16/17 13:20 Respiratory Rate 16 07/16/17 13:20 Blood Pressure 175/76 07/16/17 13:20 O2 Sat by Pulse Oximetry 07/16/17 13:20 Oxygen Delivery Oxygen Delivery Room Air Medical Decision Making - Medical Records Medical records reviewed: Yes I reviewed the patient's medical records. - Lab Data Lab results reviewed: Yes I reviewed the patient's lab results. Result diagrams: 07/16/17 13:46 07/16/17 13:46 Lab Results 07/16/17 07/16/17 07/16/17 Range/Units 13:46 13:46 13:46 WBC 5.6 (4.3-11.1) K/mcL RBC 4.27 (3.82-4.97) M/mcL Hgb 12.5 (11.5-15.4) g/dL Hct 39.0 (35.3-44.9) % MCV 91.3 (83.0-100.0) fL MCH 29.3 (28.0-33.3) pg MCHC 32.1 (31.6-35.5) g/dL RDW 13.7 (11.5-14.5) % Plt Count 203 (140-400) K/mcL MPV 10.1 (9.4-12.4) fL Immature Gran % 0.2 (0-4) % Seg Neutrophils % 52.4 % Lymphocytes % 31.9 % Monocytes % 12.3 % Eosinophils % 2.5 % Basophils % 0.7 % Neutrophils # 2.9 (1.6-8.9) K/mcL Lymphocytes # 1.8 (0.6-4.6) K/mcL Monocytes # 0.7 (0.0-1.3) K/mcL Eosinophils # 0.1 (0.0-0.6) K/mcL Basophils # 0.0 (0.0-0.2) K/mcL Sodium 139 (136-145) mEq/L Potassium 4.4 (3.5-4.5) mEq/L Chloride 107 (98-109) mEq/L Carbon Dioxide 23 (19-29) mEq/L BUN 21 H (7-20) mg/dL Creatinine 1.22 H (0.57-1.11) mg/dL Est GFR ( Amer) 51 L (> 60) Est GFR (Non-Af Amer) 42 L (> 60) BUN/Creatinine Ratio 17 (6-26) Glucose 103 H (70-99) mg/dL Calculated Osmolality 291 (280-300) Calcium 9.8 (8.6-10.8) mg/dL Troponin I 0.01 (0-0.03) ng/mL B-Natriuretic Peptide (0-100) pg/mL 07/16/17 Range/Units 13:46 WBC (4.3-11.1) K/mcL RBC (3.82-4.97) M/mcL Hgb (11.5-15.4) g/dL Hct (35.3-44.9) % MCV (83.0-100.0) fL MCH (28.0-33.3) pg MCHC (31.6-35.5) g/dL RDW (11.5-14.5) % Plt Count (140-400) K/mcL MPV (9.4-12.4) fL Immature Gran % (0-4) % Seg Neutrophils % % Lymphocytes % % Monocytes % % Eosinophils % % Basophils % % Neutrophils # (1.6-8.9) K/mcL Lymphocytes # (0.6-4.6) K/mcL Monocytes # (0.0-1.3) K/mcL Eosinophils # (0.0-0.6) K/mcL Basophils # (0.0-0.2) K/mcL Sodium (136-145) mEq/L Potassium (3.5-4.5) mEq/L Chloride (98-109) mEq/L Carbon Dioxide (19-29) mEq/L BUN (7-20) mg/dL Creatinine (0.57-1.11) mg/dL Est GFR ( Amer) (> 60) Est GFR (Non-Af Amer) (> 60) BUN/Creatinine Ratio (6-26) Glucose (70-99) mg/dL Calculated Osmolality (280-300) Calcium (8.6-10.8) mg/dL Troponin I (0-0.03) ng/mL B-Natriuretic Peptide 182 H (0-100) pg/mL - Radiology Data Radiology results reviewed: Yes I reviewed the patient's radiology results. Chest X-Ray 07/16/17 13:35 IMPRESSION: No acute process. Stable cardiomegaly D/ / Homar Luke MD / Homar Luke MD Interpreting Provider: Homar Luke MD - EKG Data EKG #1 EKG attestation: Yes I reviewed and interpreted this EKG. EKG results narrative: Sinus rhythm with PVCs, rate 69, OH interval 174, QRS 131, QTC 4:15, left axis deviation, right bundle branch block with left anterior fascicular block that is unchanged from previous S.B.A.R. - S.B.A.R. Situation: Demographics, MOA Background: Presenting Complaint, Relevant PMH, Meds, & Allergies Assessment: Vital Signs, Course and respsone to treatment, Exam Concerns, Patient/Family Expectation, Pertinant Lab Results, Outstanding Labs Recommendation: Barrier(s) to disposition, Recommendation based on pending studies, treatments, or consults S.B.A.RChristian Report Given to: hospitalist Rowdy Repor Time: 14:45
[2017-07-16] MEDS ORDERED: Acetaminophen 325 MG TABLET PO PRN (17:29)
[2017-07-16] MEDS ORDERED: Naloxone 0.4 MG/ML INJ IVP PRN (17:29)
[2017-07-16] MEDS ORDERED: Ondansetron 4 MG/2 ML VIAL IVP PRN (17:29)
[2017-07-16] MEDS ORDERED: Furosemide 20 MG TABLET PO PRN (17:43)
--- NOTE | 2017-07-16 17:53 | Internal Med History&Physical ---
<sÓcar Holbrook - Last Filed: 07/16/17 19:02> Date of Encounter: 07/16/17 Time of Encounter: 16:30 Assessment and Plan (1) Symptomatic bradycardia Current visit: Yes Status: Acute Patient presents with acute symtomatic bradycardia she states is related to medication changes post-catheterization. She reports drops in BP, HR, lightheadedness, dizziness with positional changes. Continuous cardiac telemetry. Orthostatic BPs and VS ordered. Falls/safety precautions. Cardiology consult ordered. Consider holding metoprolol per cardiology. (2) Dizziness Current visit: Yes Status: Acute Patient presents with acute dizziness she states is related to medication changes post-catheterization. She reports lightheadedness and dizziness with positional changes. Orthostatic BPs and VS ordered. Falls/safety precautions. Consider holding metoprolol per cardiology. (3) Chest pressure Current visit: Yes Status: Acute Patient presents with transient chest pressure that she states is not as bad as when she had her NJ in May. Initial troponin 0.01. Will trend x2. Continuous cardiac telemetry. Cardiology consult ordered. Will continue HLD, HTN, Plavix, and aspirin medications. (4) Hyperglycemia Current visit: Yes Status: Acute Patient presents with acute hyperglycemia of 103 on admission. Patient denies hx of diabetes. Blood glucose monitoring Q6. Communication order to notify provider if BG elevated x2 so low-dose correction insulin can be ordered. A1c ordered in a.m. labs. (5) CAD (coronary artery disease), [place] coronary artery Current visit: Yes Status: Chronic Hx of CAD and two heart attacks with last one in May 2017 with 3-stent placement. Patient placed on continuous cardiac telemetry. We will continue aspirin therapy, isosorbide, lisinopril, and Plavix. Lipid panel ordered in a.m. labs. Qualifiers: [place] vs. transplanted heart: [place] heart Associated angina: angina presence unspecified Qualified Code(s): I25.10 - Atherosclerotic heart disease of [place] coronary artery without angina pectoris (6) GERD (gastroesophageal reflux disease) Current visit: Yes Status: Chronic Patient reports hx of chronic GERD. IVP Zofran Q6 PRN and IVP Protonix 40 mg BID. Qualifiers: Esophagitis presence: esophagitis presence not specified Qualified Code(s) : K21.9 - Gastro-esophageal reflux disease without esophagitis (7) HLD (hyperlipidemia) Current visit: Yes Status: Chronic Hx of chronic HLD. Lipid panel ordered in a.m. labs. Continue Lipitor. Qualifiers: Hyperlipidemia type: pure hypercholesterolemia Qualified Code(s): E78.00 - Pure hypercholesterolemia, unspecified; E78.0 - Pure hypercholesterolemia (8) HTN (hypertension) Current visit: Yes Status: Chronic Hx of chronic HTN. Patient reports medication changes post-catheterization in 2016. Family states she was placed on metoprolol but medication is not currently in patient's med list. Monitor patient and VS and continue isosorbide and lisinopril. Consider holding metoprolol per cardiology. Qualifiers: Hypertension type: essential hypertension Qualified Code(s): I10 - Essential (primary) hypertension (9) CKD (chronic kidney disease) stage 3, GFR 30-59 ml/min Current visit: Yes Status: Chronic Hx of CKD with current GFR of 42 and creatinine of 1.22. Will use gentle hydration with IV fluids if warranted. Monitor renal function in follow-up labs. Will avoid nephrotoxic agents. (10) DVT prophylaxis Current visit: Yes Status: Acute Heparin 5,000 units SQ Q8 for DVT prophylaxis. Internal Medicine - H&P: HPI Chief complaint: Low heart rate Admitted From: Emergency Dept Plans for Post Hospital Care: Home History of present illness: Mrs. Phipps is a 81 year old female with medical history of atrial fibrillation, CAD, GERD, HLD, HTN, previous MIs in 2015 and May 2017, and osteoporosis presents from the ED with chief complaint of low heart rate. Patient states her home health nurse assessed her and found her HR was in the 40 's and sent her to the ED. Mrs. Phipps states she had a heart attack and heart catheterization in early May 2017 requiring 3 stents with medication changes in dosing changes which she says has left her fatigued, dizzy, and her heart rate/BP will drop. She reports some chest pressure intermittently that radiates to her back but nothing like her heart attack. Family states she is usually very active but notes extremely fatigued and has issues with dizziness on positional changes. Patient reports dizziness, shortness of breath, and intermittent chest pressure but denies recent illness, fever, chills, headache, nausea, vomiting, diarrhea, constipation, vision changes, presyncope, or syncope. On admission, patient's vital signs include temperature 97.5F, heart rate of 68 bpm, respiratory rate 16, BP of 175/76, and SPO2 of 99% on room air. Abnormal labs include BUN/Cr 21, creatinine 1.22, GFR 42, glucose of 103, and BNP of 182. Initial troponin 0.01. 1-View CXR today shows no acute process. Upon assessment, patient is alert and oriented 3 and states she is not experiencing chest discomfort at this time. Heart rate is atrial fibrillation. Lungs are clear bilaterally on auscultation. There is no pedal edema present bilaterally lower extremities. Patient is hemodynamically stable reports no acute distress. Information taken from patient, family, chart review, and previous medical records. Mrs. Phipps is at moderate risk for further morbidity based on current symptoms, recent [place] and heart catheterization requiring 3 stents, risk factors, and history and will be placed as observation status. Time spent with patient and family >40 minutes. Past Med Surg Social Fam HX - Past Medical History Source: patient, old records reviewed, obtained from family Medical history: atrial fibrillation, coronary artery disease, GERD, hyperlipidemia, hypertension, myocardial infarction, osteoporosis Psychiatric history: no psych history - Past Surgical History Surgical History: appendectomy, cholecystectomy, coronary bypass (CABG), hysterectomy (Total), other - Social History Smoking Status: Never smoker Smokeless Tobacco Status: No Alcohol use: none Drug use: none Current living situation: Home, With Family Activity Level: Independent ambulation Recent Out of Country Travel Within the Last 8 Weeks: No Exposure or Possible Exposure to Illness During Travel: No - Family History Mother Race: Family Member Ethnicity: Non- Living Status: Age at : 56 Cause of : Renal failure Hx Family Genitourinary Disorders: Yes (Renal failure/CKD) Brother Race: Family Member Ethnicity: Non- Living Status: Age at : 67 Cause of : Lung cancer with mets to the brain Hx Family Cardiac Disorders: Yes (NJ, HD) Hx Family Cancer: Yes (Lung with mets to brain) Sister Race: Family Member Ethnicity: Non- Living Status: Still Living Hx Family Cardiac Disorders: Yes (HD) Father Race: Family Member Ethnicity: Non- Living Status: Age at : 49 Cause of : Heart attack Hx Family Cardiac Disorders: Yes (NJ) Grandfather Race: Family Member Ethnicity: Non- Living Status: Age at : 70 Cause of : NJ Hx Family Cardiac Disorders: Yes (NJ, HD) Internal Medicine - H&P: Meds Aspirin 81 mg PO DAILY 03/25/16 [History] Atorvastatin [Lipitor] 40 mg PO HS 03/25/16 [History] Docusate [Colace] 100 mg PO DAILY 03/25/16 [History] Furosemide [Lasix] 20 mg PO DAILY PRN 03/25/16 [History] Multivitamin [Multi-Day Vitamins] 1 tab PO DAILY 03/25/16 [History] Niacin 100 mg PO DAILY 03/25/16 [History] Pantoprazole Sodium [Protonix] 40 mg PO DAILY 03/25/16 [History] Vitamin E Acid Succinate [Vitamin E] 400 units PO DAILY 03/25/16 [History] Cholecalciferol (Vitamin D3) [Vitamin D3] 1,000 unit PO DAILY 05/23/17 [History] Fluticasone Propionate Nasal [Flonase] 50 mcg NS DAILY 05/23/17 [History] Potassium Chloride [Klor-Con 10] 10 meq PO DAILY PRN 05/23/17 [History] Clopidogrel [Plavix] 75 mg PO DAILY #30 tab 05/25/17 [Rx] Isosorbide MONOnitrate (24 HR) [Imdur] 30 mg PO DAILY #30 05/25/17 [Rx] Cetirizine HCl [Zyrtec] 10 mg PO DAILY #4 capsule 07/05/17 [Rx] Lisinopril [Zestril] 5 mg PO DAILY 07/16/17 [History] 3 Allergy/AdvReac Type Severity Reaction Status Date / Time Sulfa (Sulfonamide Allergy unknown Verified 07/16/17 13:19 Antibiotics) Iodinated Contrast- Oral and AdvReac Swelling Verified 07/16/17 13:19 IV Dye of [Iodinated Contrast Media - Lip/Tongue/Throat IV Dye] All Systems PM: A 10-system review of systems was performed and is negative for pertinent findings except as documented above in the HPI. - Constitutional Constitutional: as per HPI, fatigue, weakness, no chills, no fever(s), no night sweats - EENT Eyes: no change in vision, no discharge, no pain, no photophobia Ears: no ear discharge, no ear pain, no tinnitus Nose, mouth and throat: no dysphagia, no nasal discharge, no neck pain, no sore throat - Breasts Breasts: as per HPI - Cardiovascular Cardiovascular ROS IM: as per HPI, chest pain (Chest pressure), dyspnea, irregular heart rhythm, lightheadedness - Respiratory Respiratory: as per HPI, dyspnea - Gastrointestinal Gastrointestinal: no abdominal pain, no diarrhea, no hematemesis, no hematochezia, no melena, no nausea, no vomiting - Genitourinary Genitourinary: no change in urinary stream, no dysuria, no flank pain, no hematuria Menstruation: as per HPI, post hysterectomy - Musculoskeletal Musculoskeletal ROS IM: no numbness, no tingling - Integumentary Integumentary IM: no rash, no unusual bruising - Neurological Neurological ROS: no confusion, no convulsions, no focal weakness, no numbness, no tingling, no tremor(s) - Psychiatric Psychiatric: as per HPI - Endocrine Endocrine IM: as per HPI - Hematologic/Lymphatic Hematologic/Lymphatic: no easy bruising - Allergic/Immunologic Allergic/Immunologic: as per HPI - Constitutional Vitals: Temp Pulse Resp BP Pulse Ox 97.5 F L 61 19 162/70 97 07/16/17 13:20 07/16/17 15:51 07/16/17 15:51 07/16/17 15:51 07/16/17 15:51 General appearance: Present: cooperative, A&O X 3, pleasant, no acute distress, obese, answers questions appropriately - Head Head exam: Present: atraumatic, normocephalic - Eye Eye exam: Present: PERRL, conjuntiva pink, sclera anicteric Pupils: Present: PERRL - ENT ENT exam: Present: normal exam, normal external ear exam - Neck Neck exam general surgery: Present: normal inspection, supple, trachea midline. Absent: lymphadenopathy - Respiratory Respiratory exam: Present: CTAB. Absent: accessory muscle use, rales, rhonchi, wheezes - Cardiovascular Cardiovascular exam: Present: irregular rhythm - GI/Abdominal GI/Abdominal exam: Present: normal bowel sounds, soft, no peritoneal signs. Absent: distended, tenderness - Rectal Rectal exam: Present: deferred - Additional comments: exam deferred. - Extremities Exam Extremities exam: Present: warm, radial pulses palpable and symmetrical. Absent : calf tenderness, cyanotic, pedal edema - Back Exam Back exam: Present: normal inspection - Neurological Exam Neurological exam: Present: CN II-XII intact, oriented X3, no focal deficits. Absent: pronater drift, facial droop, speech deficit - Psychiatric Psychiatric exam: Present: normal affect, normal mood - Skin Skin exam: Present: dry, intact Internal Med - H&P Results - Labs CBC & Chem 7: 07/16/17 13:46 07/16/17 13:46 - EKG Data EKG shows normal: sinus rhythm - EKG Data Prior EKG available for review: yes EKG comments: 07/16/17 18:24 EKG dated 05/23/17 shows sinus rhythm with right bundle branch block, left anterior fascicular block, voltage criteria for LVH, possible anterior myocardial infarction of indeterminate age, moderate T-wave abnormality consider lateral ischemia, moderate T-wave abnormality consider inferior ischemia. EKG dated 07/16/17 sinus with occasional ventricular premature complexes, right bundle branch block, left anterior fascicular block, and voltage criteria for LVH. - Diagnostic Studies Chest x-ray Additional comments: Impressions Chest X-Ray 07/16/17 13:35 IMPRESSION: No acute process. Stable cardiomegaly D/ / Homar Luke MD / Homar Luke MD Interpreting Provider: Homar Luke MD <Nalini Dumont Yas - Last Filed: 07/16/17 19:12> Date of Encounter: 07/16/17 Internal Medicine - H&P: HPI History of present illness: Ms. Phipps is a 81 year old female All Systems PM: A 10-system review of systems was performed and is negative for pertinent findings except as documented above in the HPI. - Constitutional Vitals: Temp Pulse Resp BP Pulse Ox 97.5 F L 61 19 162/70 97 07/16/17 13:20 07/16/17 15:51 07/16/17 15:51 07/16/17 15:51 07/16/17 15:51 Internal Med - H&P Results - Labs CBC & Chem 7: 07/16/17 13:46 07/16/17 13:46 - Attending Attestation Patient seen and examined, agree with assessment and plan by Óscar Elena CNP. Patient with symptomatic bradycardia, likely related to increase in beta adrian. Patient experienced chest pain. Currently chest pain free and pulse 60s. Will trend troponin and consult cardiology for assistance with further medication adjustments.
--- NOTE | 2017-07-16 18:16 | Electrocardiograph Report ---
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
[2017-07-16] MEDS: *HR* Heparin 5,000 UNIT/ML VIAL SQ SCH (22:09)
[2017-07-16] MEDS: Pantoprazole 40 MG VIAL IVP SCH (22:10)
[2017-07-17 03:03] LABS: Basophils % 0.6 %; Eosinophils # 0.2 K/mcL (0.0-0.6); Eosinophils % 2.1 %; Hematocrit 36.6 % (35.3-44.9); Immature Granulocytes % 0.3 % (0-4); Lymphocytes # 2.1 K/mcL (0.6-4.6); Lymphocytes % 29.5 %; Mean Corpuscular HGB Conc 32.8 g/dL (31.6-35.5); Mean Corpuscular Volume 91.5 fL (83.0-100.0); Mean Platelet Volume 10.3 fL (9.4-12.4); Monocytes # 0.8 K/mcL (0.0-1.3); Monocytes % 11.5 %; Neutrophils # 3.9 K/mcL (1.6-8.9); Platelet Count 174 K/mcL (140-400); Red Cell Distribution Width 13.8 % (11.5-14.5)
[2017-07-17 03:07] LABS: Prothrombin Time 10.4 Seconds (9.4-12.1)
[2017-07-17 03:10] LABS: Activated Partial Thrombo Time 27.6 Seconds (26.0-36.0)
[2017-07-17 03:22] LABS: Albumin 3.2 g/dL (3.5-5.0); Bilirubin,Total 0.8 mg/dL (0.2-1.2); Chol/HDL Ratio 4.2 (0-4.9); Globulin 3.1 g/dL (2.4-3.5); Magnesium 1.6 mg/dL (1.6-2.6); Total Protein 6.3 g/dL (6.0-8.3)
[2017-07-17] MEDS: *HR* Heparin 5,000 UNIT/ML VIAL SQ SCH ×2 (05:49→14:45)
[2017-07-17] MEDS: Pantoprazole 40 MG VIAL IVP SCH (08:21)
[2017-07-17] MEDS ORDERED: Aspirin 81 MG TAB.CHEW PO SCH (09:00)
[2017-07-17] MEDS ORDERED: Fluticasone Propionate Nasal 50 MCG/SPRAY BOTTLE NS SCH (09:00)
[2017-07-17] MEDS ORDERED: Isosorbide MONOnitrate (24 HR) 30 MG TAB.ER.24H PO SCH (09:00)
[2017-07-17] MEDS ORDERED: Loratadine 10 MG TABLET PO SCH (09:00)
[2017-07-17] MEDS ORDERED: Cholecalciferol (D-3) 1,000 UNIT TABLET PO SCH (09:00)
[2017-07-17] MEDS ORDERED: Multivit/Ca/Min/Fe/FA 1 TAB TABLET PO SCH (09:00)
--- NOTE | 2017-07-17 14:15 | Cardiology Consult Note ---
Date of Encounter: 07/17/17 Time of Encounter: 14:00 Assessment and Plan (1) Dizziness Current Visit: Yes Status: Acute Dizziness due to orthostatic hypotension after taking bp meds, Imdur and Lisinopril added 06/03, metoprolol decreased from 50 to 25 bid, decreased to12.5 mb bid over last 24 hours with improvement in symptoms. Will continue 12.5 mg bid, monitor clinical response as outpatient. 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 Benito, in next several weeks, sooner is recurrent symptoms, will place event monitor at that point. (2) Chest pain Current Visit: Yes Status: Acute Atypical, very transient, only with orthostatic symptoms, much different from previous anginal equivalent, will monitor on lower dose of metoprolol, suspect will resolve with decreased metoprolol. EKG is improved, enzemes negative, unlikely acute coronary symdrome etiology of chest pain. Qualifiers: Chest pain type: precordial pain Qualified Code(s): R07.2 - Precordial pain (3) CAD (coronary artery disease), [place] coronary artery Current Visit: Yes Status: Chronic Severe triple vessel CAD, post CABG with JACKSON to LAD, SVG to OM1 and SVG to RCA 11/02, emergent PCI with GREGOR RCA 05/2017, grafts patent at that time. Qualifiers: [place] vs. transplanted heart: [place] heart Associated angina: angina presence unspecified Qualified Code(s): I25.10 - Atherosclerotic heart disease of [place] coronary artery without angina pectoris (4) CKD (chronic kidney disease) stage 3, GFR 30-59 ml/min Current Visit: Yes Status: Chronic Renal function stable on current meds. (5) Symptomatic bradycardia Current Visit: Yes Status: Acute Mild transient bradycardia due to beta blockade, has resolved on lower dose of metoprolol, continue to monitor as outpatient. Discussion w patient/family: The assessment and plan as outlined above was discussed with the patient and/or family members who expressed understanding and agreement. All questions were answered. Thank you for involving us in the care of your patient. Please call with any questions. History of Present Illness Consult date: 07/17/17 Requesting physician: Desmond Holman Consult reason: dizziness, bradycardia, chest pain Chief complaint: dizziness with change in position. History of present illness: Pt presents for evaluation of dizziness, chest tightness Pt reports has developed dizziness over last three weeks with change in position from lying to sitting and sitting to standing. She has no symptoms when first gets up, more symptoms approximately thirty minutes after she takes her morning meds, lasts several hours, most severe around 10 AM, slowly tapers off during the day, is back to normal early evening. Pt reports if bends over to tie her shoes, and comes back up feels the room spin and like she is going to pass out. Symptoms last up to thirty seconds, resolve spontaneously. She experiences similar symptoms if changes from lying to sitting, although only last 15 seconds, and if stands up quickly from sitting which is also assoicated with a transient 3 to 5 second sensation of chest tightness. Chest tightness is 2/10, mid epigastric, lasts seconds, three to five, not associated with nausea, shortness or diaphoresis, resolves spontaneously before she has to do anything different. The chest pain does not occur with every change in position , but has occurred several times. She is currently chest pain free, no episodes of dizziness since admission. Past Med Surg Social Fam HX - Past Medical History Medical history: atrial fibrillation, coronary artery disease, GERD, hyperlipidemia, hypertension, myocardial infarction, osteoporosis Psychiatric history: no psych history - Past Surgical History Surgical History: appendectomy, cholecystectomy, coronary bypass (CABG), hysterectomy (Total), other - Social History Smoking Status: Never smoker Smokeless Tobacco Status: No Alcohol use: none Drug use: none - Family History Mother Race: Family Member Ethnicity: Non- Living Status: Age at : 56 Cause of : Renal failure Hx Family Genitourinary Disorders: Yes (Renal failure/CKD) Brother Race: Family Member Ethnicity: Non- Living Status: Age at : 67 Cause of : Lung cancer with mets to the brain Hx Family Cardiac Disorders: Yes ([place], HD) Hx Family Cancer: Yes (Lung with mets to brain) Sister Race: Family Member Ethnicity: Non- Living Status: Still Living Hx Family Cardiac Disorders: Yes (HD) Grandfather Race: Family Member Ethnicity: Non- Living Status: Age at : 70 Cause of : [place] Hx Family Cardiac Disorders: Yes ([place], HD) Father Race: Family Member Ethnicity: Non- Living Status: Age at : 49 Cause of : Heart attack Hx Family Cardiac Disorders: Yes ([place]) Medications and Allergies Aspirin 81 mg PO DAILY 03/25/16 [History] Atorvastatin [Lipitor] 40 mg PO HS 03/25/16 [History] Docusate [Colace] 100 mg PO DAILY 03/25/16 [History] Furosemide [Lasix] 20 mg PO DAILY PRN 03/25/16 [History] Multivitamin [Multi-Day Vitamins] 1 tab PO DAILY 03/25/16 [History] Niacin 100 mg PO DAILY 03/25/16 [History] Pantoprazole Sodium [Protonix] 40 mg PO DAILY 03/25/16 [History] Vitamin E Acid Succinate [Vitamin E] 400 units PO DAILY 03/25/16 [History] Cholecalciferol (Vitamin D3) [Vitamin D3] 1,000 unit PO DAILY 05/23/17 [History] Fluticasone Propionate Nasal [Flonase] 50 mcg NS DAILY 05/23/17 [History] Potassium Chloride [Klor-Con 10] 10 meq PO DAILY PRN 05/23/17 [History] Clopidogrel [Plavix] 75 mg PO DAILY #30 tab 05/25/17 [Rx] Isosorbide MONOnitrate (24 HR) [Imdur] 30 mg PO DAILY #30 05/25/17 [Rx] Cetirizine HCl [Zyrtec] 10 mg PO DAILY #4 capsule 07/05/17 [Rx] Lisinopril [Zestril] 5 mg PO DAILY 07/16/17 [History] 3 Allergy/AdvReac Type Severity Reaction Status Date / Time Sulfa (Sulfonamide Allergy unknown Verified 07/16/17 13:19 Antibiotics) Iodinated Contrast- Oral and AdvReac Swelling Verified 07/16/17 13:19 IV Dye of [Iodinated Contrast Media - Lip/Tongue/Throat IV Dye] All Systems Review: A 10-system review of systems was performed and is negative for pertinent findings except as documented above in the HPI. - Cardiovascular Cardiovascular: chest pain at rest, lightheadedness Physical Examination Vital Signs, Last 4 Hours Temp Pulse Resp BP Pulse Ox 07/17/17 12:06 97.5 F L 68 15 120/61 95 General: Conversant, No Apparent Distress HEENT: Atraumatic, Normocephaly, Mucus Membranes Moist Neck: No JVD, Normal carotid pulses Cardiac: Reg Rate and Rhythm, Normal S1 and S2, No Murmur Lungs: Normal Breath Sounds, No Wheeze, Rales, Rhonchi Neuro: Alert and responsive, No focal deficits noted Abdomen: Soft, Non-Tender Skin: No rashes noted on visualized skin Musculoskeletal: No Chest Wall Tenderness Extremities: No Clubbing, No Cyanosis, No Edema, Normal Pulses Results 07/17/17 02:13 07/17/17 02:13 Lab Results 07/16/17 07/17/17 07/17/17 19:36 02:13 02:13 WBC 7.0 Hgb 12.0 Hct 36.6 Plt Count 174 INR APTT Sodium Potassium Chloride Carbon Dioxide BUN Creatinine Glucose Calcium Magnesium Total Bilirubin AST ALT Alkaline Phosphatase Troponin I 0.02 0.02 07/17/17 07/17/17 02:13 02:13 WBC Hgb Hct Plt Count INR 1.0 APTT 27.6 Sodium 138 Potassium 4.0 Chloride 107 Carbon Dioxide 24 BUN 19 Creatinine 1.24 H Glucose 91 Calcium 9.0 Magnesium 1.6 Total Bilirubin 0.8 AST 14 ALT 15 Alkaline Phosphatase 85 Troponin I - EKG Interpretation EKG results cardiology: personally reviewed Consult Discharge Plan - Plan Referrals: Aristeo White MD [Primary Care Provider] -
[2017-07-17 14:26] VITALS: BP 113/64
[2017-07-17] MEDS ORDERED: 0.9 % Sodium Chloride 500 ML IVC ONE (14:47)
--- NOTE | 2017-07-17 14:51 | Discharge Summary ---
<Juan Vargas - Last Filed: 07/17/17 14:49> Date of Encounter: 07/17/17 Time of Encounter: 14:49 - Discharge Diagnosis (1) Symptomatic bradycardia Priority: Primary Status: Acute (2) Orthostatic hypotension Priority: Secondary Status: Acute (3) CAD (coronary artery disease), [place] coronary artery Priority: Secondary Status: Chronic Qualifiers: [place] vs. transplanted heart: [place] heart Associated angina: angina presence unspecified Qualified Code(s): I25.10 - Atherosclerotic heart disease of [place] coronary artery without angina pectoris (4) Chest pain Priority: Secondary Status: Acute Qualifiers: Chest pain type: precordial pain Qualified Code(s): R07.2 - Precordial pain (5) DVT prophylaxis Priority: Secondary Status: Acute - Discharge Medications Prescriptions: Metoprolol [Lopressor] 12.5 mg PO BID #60 tablet Home Medications: Aspirin 81 mg PO DAILY 03/25/16 [History] Atorvastatin [Lipitor] 40 mg PO HS 03/25/16 [History] Docusate [Colace] 100 mg PO DAILY 03/25/16 [History] Furosemide [Lasix] 20 mg PO DAILY PRN 03/25/16 [History] Multivitamin [Multi-Day Vitamins] 1 tab PO DAILY 03/25/16 [History] Niacin 100 mg PO DAILY 03/25/16 [History] Pantoprazole Sodium [Protonix] 40 mg PO DAILY 03/25/16 [History] Vitamin E Acid Succinate [Vitamin E] 400 units PO DAILY 03/25/16 [History] Cholecalciferol (Vitamin D3) [Vitamin D3] 1,000 unit PO DAILY 05/23/17 [History] Fluticasone Propionate Nasal [Flonase] 50 mcg NS DAILY 05/23/17 [History] Potassium Chloride [Klor-Con 10] 10 meq PO DAILY PRN 05/23/17 [History] Clopidogrel [Plavix] 75 mg PO DAILY #30 tab 05/25/17 [Rx] Isosorbide MONOnitrate (24 HR) [Imdur] 30 mg PO DAILY #30 05/25/17 [Rx] Cetirizine HCl [Zyrtec] 10 mg PO DAILY #4 capsule 07/05/17 [Rx] Metoprolol [Lopressor] 12.5 mg PO BID #60 tablet 07/17/17 [Rx] Allergies/Adverse Reactions: 3 Allergy/AdvReac Type Severity Reaction Status Date / Time Sulfa (Sulfonamide Allergy unknown Verified 07/16/17 13:19 Antibiotics) Iodinated Contrast- Oral and AdvReac Swelling Verified 07/16/17 13:19 IV Dye of [Iodinated Contrast Media - Lip/Tongue/Throat IV Dye] Date of admission: 07/16/17 14:47 Primary care physician: Aristeo White MD Consults: 07/16/17 17:32 Consult to Occupational Therapy [CONS] Routine Comment: Evaluate, develop and implement POC Reason for Consult: Patient becomes bradycardic and dizzy and has hx of stumbling. Please assess for strength, stability, ambulation/assistive needs for post- discharge planning. 07/16/17 17:33 Consult to Physical Therapy [CONS] Routine Comment: Evaluate, develop and implement POC Reason for Consult: Patient becomes bradycardic and dizzy and has hx of stumbling. Please assess for strength, stability, ambulation/assistive needs for post- discharge planning. 07/16/17 17:45 Consult to Cardiology [CONS] Routine Comment: Consulting Provider: Cardiology [facility] Reason for Consult: Patient presents with bradycardia and dizziness following medication changes post-ME in April. Patient states she becomes extremely dizzy and fatigued after taking morning meds and she begins to feel better towards evening. Medication dosing was increased. States she wasn't experiencing this prior to med changes. Followed by Dr. Modi. Call Completed: Yes Discharging clinician: Juan Vargas Anticipated date of discharge: 07/17/17 - Patient Status Disposition: Home, Self-Care Condition: Good Functional capacity at discharge: independent ambulation Overall status at discharge: patient is progressing back to baseline - Discharge Instructions Instructions: Metoprolol (By mouth), Chest Pain (DC), Chronic Hypertension (DC) , Hypotension (DC), Bradycardia (DC) Follow Up With: Aristeo White MD [Primary Care Provider] - (please call and schedule an appointment on Wednesday to be seen in one week. ) - Diet and Activity Activity: increase activity as tolerated Diet: low fat, low cholesterol, low salt diet Interval History: 81 y/o female s/p PCI x 3 stents in May 2017 presents with cc of dizziness. Patient states she has had episodes of dizziness for two weeks. SHe was stated on metoprolol 50mg BID and this was decreased to 25mg BID as the higher dose caused her fatigue. She tolerated the lower does until lisinopril was added as she has EF of 45% and ishcemic cardiomyopathy. This is when her dizziness spells started. Two days ago her home health nurse found her to be bradycardic in 40s with BP 100/54. The patient states he BP usually runs in 120 to 130 systolic. She also had chest pressure intermittently. Patient was found to have orthostatic hypotention. Her metoprolol was decreased to 12.5mg. Bradycardia resolved. Her dizziness resolved however orthostatic vitals still showed > 20mmhg drop in systolic bp. She was given 500cc bolus NS. Patient was told to stop lisinopril as of now and follow up with cardiology outpatient for reevaluation. Patient able to ambulate independetly, tolerating diet and ready for discharge. Plan: follow up with cardiology outpatient. Stop lisinopril. Start new lower dose metoprolol 25 BID. Hospital course: Ms. Phipps is a 81 year old female - Time Spent with Patient Total time spent providing and/or coordinating discharge services: - Constitutional Vitals: Temp Pulse Resp BP Pulse Ox 97.5 F L 68 15 113/64 95 07/17/17 12:06 07/17/17 12:06 07/17/17 12:06 07/17/17 14:24 07/17/17 12:06 General appearance: Present: cooperative, A&O X 3, pleasant, no acute distress, obese, answers questions appropriately - Head Head exam: Present: atraumatic, normocephalic - Eye Eye exam: Present: PERRL, conjuntiva pink, sclera anicteric - Neck Neck exam general surgery: Present: supple, trachea midline. Absent: lymphadenopathy - Respiratory Respiratory exam: Present: CTAB. Absent: accessory muscle use, rales, rhonchi, wheezes - Cardiovascular Cardiovascular exam: Present: RRR, +S1, +S2. Absent: diastolic murmur, gallop, rubs, systolic murmur - GI/Abdominal GI/Abdominal exam: Present: normal bowel sounds, soft, no peritoneal signs. Absent: distended, tenderness - Extremities Exam Extremities exam: Present: warm, radial pulses palpable and symmetrical. Absent : calf tenderness, cyanotic, pedal edema - Neurological Exam Neurological exam: Present: alert, normal gait, oriented X3, strengths equal and symetr throughout - Skin Skin exam: Present: dry, intact <Desmond Holman - Last Filed: 07/17/17 15:48> Date of Encounter: 07/17/17 - Discharge Diagnosis (1) Orthostatic hypotension Priority: Primary Status: Acute (2) Drug-induced bradycardia Priority: Primary Status: Acute (3) CAD (coronary artery disease), [place] coronary artery Status: Chronic Qualifiers: [place] vs. transplanted heart: [place] heart Associated angina: angina presence unspecified Qualified Code(s): I25.10 - Atherosclerotic heart disease of [place] coronary artery without angina pectoris (4) GERD (gastroesophageal reflux disease) Priority: Secondary Status: Chronic Qualifiers: Esophagitis presence: esophagitis presence not specified Qualified Code(s) : K21.9 - Gastro-esophageal reflux disease without esophagitis (5) HLD (hyperlipidemia) Priority: Secondary Status: Chronic Qualifiers: Hyperlipidemia type: mixed hyperlipidemia Qualified Code(s): E78.2 - Mixed hyperlipidemia (6) HTN (hypertension) Priority: Secondary Status: Chronic Qualifiers: Hypertension type: essential hypertension Qualified Code(s): I10 - Essential (primary) hypertension (7) CKD (chronic kidney disease) stage 3, GFR 30-59 ml/min Status: Chronic Date of admission: 07/16/17 14:47 Primary care physician: Aristeo White MD Consults: 07/16/17 17:32 Consult to Occupational Therapy [CONS] Routine Comment: Evaluate, develop and implement POC Reason for Consult: Patient becomes bradycardic and dizzy and has hx of stumbling. Please assess for strength, stability, ambulation/assistive needs for post- discharge planning. 07/16/17 17:33 Consult to Physical Therapy [CONS] Routine Comment: Evaluate, develop and implement POC Reason for Consult: Patient becomes bradycardic and dizzy and has hx of stumbling. Please assess for strength, stability, ambulation/assistive needs for post- discharge planning. 07/16/17 17:45 Consult to Cardiology [CONS] Routine Comment: Consulting Provider: Cardiology Magaly Reason for Consult: Patient presents with bradycardia and dizziness following medication changes post-ME in April. Patient states she becomes extremely dizzy and fatigued after taking morning meds and she begins to feel better towards evening. Medication dosing was increased. States she wasn't experiencing this prior to med changes. Followed by Dr. Modi. Call Completed: Yes Hospital course: Ms. Phipps is a 81 year old female - Time Spent with Patient Total time spent providing and/or coordinating discharge services: - Constitutional Vitals: Temp Pulse Resp BP Pulse Ox 97.5 F L 68 15 113/64 95 07/17/17 12:06 07/17/17 12:06 07/17/17 12:06 07/17/17 14:24 07/17/17 12:06 - Attending Attestation I examined this patient and my medical decision-making was reviewed with the Resident Physician on 07/17/17. I agree with the documented findings, disposition and treatment plan as described except to the extent set forth below. Ms. Phipps was placed in observation due to bradycardia and dizziness. Her beta adrian has been held and restarted this AM at a lower dose. No fever or chills. Orthostatic positive slightly now. Able to ambulate in reveles without difficulty. Receiving a small bolus of fluid and then will be discharged home on lower dose of Metoprolol and Lisinopril. Exam alert. Comfortable Heart reg with murmur Lungs clear Abd soft No edema Mucus membranes moist Plan 500ml fluid bolus Decrease meds D/C home today.
== END 2017-07-17 17:14 | disposition home or self-care (01) ==
LOC: EMEROO 13:15 → 2NENU 13:15
PROVIDERS: ADMIT Internal Medicine; ATTEND Internal Medicine

== ENCOUNTER 2017-11-18 00:34 | Observation (INO) ==
[2017-11-18 01:03] LABS: Basophils % 0.5 %; Eosinophils # 0.1 K/mcL (0.0-0.6); Eosinophils % 1.2 %; Hematocrit 43.1 % (35.3-44.9); Hemoglobin 14.3 g/dL (11.5-15.4); Lymphocytes # 3.9 K/mcL (0.6-4.6); Lymphocytes % 58.2 %; Mean Corpuscular HGB Conc 33.2 g/dL (31.6-35.5); Mean Corpuscular Hemoglobin 30.1 pg (28.0-33.3); Mean Corpuscular Volume 90.7 fL (83.0-100.0); Mean Platelet Volume 10.2 fL (9.4-12.4); Monocytes # 0.7 K/mcL (0.0-1.3); Monocytes % 10.4 %; Platelet Count 233 K/mcL (140-400); Red Blood Count 4.75 M/mcL (3.82-4.97); Red Cell Distribution Width 13.4 % (11.5-14.5); Segmented Neutrophils % 29.7 %
[2017-11-18] MEDS ORDERED: 0.9 % Sodium Chloride 500 ML ONE (01:05)
[2017-11-18 01:15] LABS: INR 0.9; Prothrombin Time 9.6 Seconds (9.4-12.1)
[2017-11-18] MEDS ORDERED: 0.9 % Sodium Chloride 500 ML IVC SCH (01:15)
[2017-11-18 01:18] LABS: Activated Partial Thrombo Time 24.2 Seconds (26.0-36.0)
--- NOTE | 2017-11-18 01:19 | Emergency Department Note ---
Disposition Clinical Impression: Atrial fibrillation with RVR Disposition: Admitted As Inpatient Condition: Good General Adult HPI - General Chief complaint: ED Chest Pain Stated complaint: chest pain has taken two nitro Time Seen by Provider: 11/18/17 00:49 Source: patient Mode of arrival: private vehicle Limitations: no limitations Nursing Notes Reviewed: Yes Vital Signs Reviewed: Yes - History of Present Illness HPI Narrative: 81-year-old female history of CABG in 2016, left heart catheterization with stent placement in 2017-2, hyperlipidemia presents to the ER due to generalized weakness, dizziness and chest pain. Reports she has felt unwell for couple of days. She follows with cardiology here who decreased her metoprolol a few months ago for symptomatic bradycardia. She denies any recent fevers, cough, nausea, vomiting. Reports just vague intermittent chest pain. Denies any palpitations. No other complaints. Pt Subjective Complaint: Chest pain, weakness Onset (ago): day(s) Location: chest Pain Severity: moderate Pain Scale: 6 Improves with: nothing Worsens with: nothing Associated symptoms: Reports: chest pain, weakness Treatments Prior to Arrival: none - Related Data Home Medications Medication Instructions Recorded Confirmed Aspirin [Lo-Dose Aspirin EC] 81 mg PO DAILY 10/15/17 10/15/17 Atorvastatin [Lipitor] 40 mg PO HS 10/15/17 10/15/17 Furosemide [Lasix] 20 mg PO DAILY 10/15/17 10/15/17 Metoprolol [Lopressor] 12.5 mg PO BID 10/15/17 10/15/17 Pantoprazole Sodium [Protonix] 40 mg PO DAILY 10/15/17 10/15/17 Allergies Allergy/AdvReac Type Severity Reaction Status Date / Time Sulfa (Sulfonamide Allergy unknown Verified 11/18/17 00:38 Antibiotics) Iodinated Contrast- Oral and AdvReac Swelling Verified 11/18/17 00:38 IV Dye of [Iodinated Contrast Media - Lip/Tongue/Throat IV Dye] All systems ED: reviewed and negative except as stated. Constitutional: Denies: fever Cardiovascular: Reports: chest pain. Denies: palpitations Respiratory: Denies: cough, dyspnea, sputum production Gastrointestinal: Denies: abdominal pain, nausea, vomiting Past Medical History - Past Medical History Attestation: Yes The following information was validated with the patient. Source: patient Medical history: Reports: coronary artery disease, hyperlipidemia, hypertension Surgical history: Reports: appendectomy, cholecystectomy, coronary bypass (CABG) , hysterectomy (Total), other Psychiatric history: Reports: no psych history MARBLE HELPER history: Reports: no MARBLE HELPER history - Social History Smoking Status: Never smoker Smokeless Tobacco Status: No Alcohol use: Reports: none Drug use: Reports: none Physical Exam - General Limitations: no limitations General appearance: alert, in no apparent distress - Head Head exam: atraumatic, normocephalic - Eye Eye exam: Present: normal appearance - ENT ENT exam: normal exam - Neck Neck exam: Present: normal inspection - Chest Chest inspection: Present: normal inspection, symmetric chest wall rise - Respiratory Respiratory exam: Present: normal lung sounds bilaterally - Cardiovascular Cardiovascular exam: Present: tachycardia, irregular rhythm, normal heart sounds - Abdominal Exam Abdominal exam: Present: soft, Non-Tender. Absent: tenderness - Extremities Exam Extremities exam: Present: normal inspection, full ROM - Expanded Upper Extremity Exam Shoulder exam: Present: normal inspection, full ROM Arm exam: Present: normal inspection, full ROM Elbow exam: Present: normal inspection, full ROM Forearm/Wrist exam: Present: normal inspection, full ROM Hand exam: Present: normal inspection, full ROM - Expanded Lower Extremity Exam Hip/Pelvis exam: Present: normal inspection, full ROM Upper leg exam: Present: normal inspection, full ROM Knee exam: Present: normal inspection, full ROM Lower leg exam: Present: normal inspection, full ROM Ankle exam: Present: normal inspection, full ROM Foot/toe exam: Present: normal inspection, full ROM - Skin Skin exam: Present: warm, dry Course Course Narrative: Patient seen and examined. Noted to be in atrial fibrillation with rapid ventricular response. States that she had this in 2016 after her CABG and was on Coumadin but they took her off it because she stopped having it. Her blood pressure is stable and she is mentating appropriately. She has no evidence of ischemic chest pain at this time requiring interventional cardioversion. I reviewed her most recent echo in 2016 showing a preserved EF at that time. We will give her a dose of Cardizem bolus as well as started Cardizem drip, chest x -ray, labs including electrolytes, TSH. She will be admitted for A. fib RVR. - Reevaluation(s) Reevaluation #1: Patient noted to have urticaria around the IV site after Cardizem bolus and drip. This was immediately stopped and patient was given 50 mg of Benadryl. No shortness of breath or respiratory distress. We will try Lopressor and continue to monitor. Reevaluation #2: Patient given 5 mg of IV Lopressor. She converted to sinus rhythm. We will discuss with the hospitalist for admission. Vital Signs Temperature 98.3 F 11/18/17 00:36 Pulse Rate 145 11/18/17 00:36 Respiratory Rate 20 11/18/17 00:36 Blood Pressure 158/106 11/18/17 00:36 O2 Sat by Pulse Oximetry 96 11/18/17 00:36 Temperature 98.3 F 11/18/17 00:36 Pulse Rate 68 11/18/17 02:59 Respiratory Rate 16 11/18/17 02:59 Blood Pressure 153/91 11/18/17 02:59 O2 Sat by Pulse Oximetry 95 11/18/17 02:59 Oxygen Delivery Oxygen Delivery Room Air Medical Decision Making - MDM Narrative Medical decision making narrative: 81-year-old female presents to the ER due to generalized weakness for a few days. Noted to be in A. fib with RVR. She was first given Cardizem which she had a reaction to which was rash and urticaria. Patient given 5 mg IV Lopressor and converted to sinus rhythm. EKG without ischemic features. Chest x-ray unremarkable. Labs including troponin normal. Admitted to the hospital service for A. fib RVR. - Lab Data Lab results reviewed: Yes I reviewed the patient's lab results. Result diagrams: 11/18/17 00:51 11/18/17 00:51 Lab Results 11/18/17 11/18/17 11/18/17 Range/Units 00:51 00:51 00:51 WBC 6.7 (4.3-11.1) K/mcL RBC 4.75 (3.82-4.97) M/mcL Hgb 14.3 (11.5-15.4) g/dL Hct 43.1 (35.3-44.9) % MCV 90.7 (83.0-100.0) fL MCH 30.1 (28.0-33.3) pg MCHC 33.2 (31.6-35.5) g/dL RDW 13.4 (11.5-14.5) % Plt Count 233 (140-400) K/mcL MPV 10.2 (9.4-12.4) fL Immature Gran % 0.0 (0-4) % Seg Neutrophils % 29.7 % Lymphocytes % 58.2 % Monocytes % 10.4 % Eosinophils % 1.2 % Basophils % 0.5 % Neutrophils # 2.0 (1.6-8.9) K/mcL Lymphocytes # 3.9 (0.6-4.6) K/mcL Monocytes # 0.7 (0.0-1.3) K/mcL Eosinophils # 0.1 (0.0-0.6) K/mcL Basophils # 0.0 (0.0-0.2) K/mcL PT 9.6 (9.4-12.1) Seconds INR 0.9 APTT 24.2 L (26.0-36.0) Seconds Sodium 139 (136-145) mEq/L Potassium 3.8 (3.5-5.1) mEq/L Chloride 103 (98-107) mEq/L Carbon Dioxide 25 (23-29) mEq/L BUN 23 (8-23) mg/dL Creatinine 1.21 H (0.60-1.20) mg/dL Est GFR ( Amer) 52 L (> 60) Est GFR (Non-Af Amer) 43 L (> 60) BUN/Creatinine Ratio 19 (6-26) Glucose 122 H (70-105) mg/dL Calculated Osmolality 293 (280-300) Calcium 10.0 (8.6-10.3) mg/dL Magnesium 1.8 (1.6-2.6) mg/dL Troponin I (< 0.04) ng/mL B-Natriuretic Peptide (Less than 100) pg/mL TSH 9.158 H (0.340-5.600) mcIU/mL 11/18/17 11/18/17 Range/Units 00:51 00:51 WBC (4.3-11.1) K/mcL RBC (3.82-4.97) M/mcL Hgb (11.5-15.4) g/dL Hct (35.3-44.9) % MCV (83.0-100.0) fL MCH (28.0-33.3) pg MCHC (31.6-35.5) g/dL RDW (11.5-14.5) % Plt Count (140-400) K/mcL MPV (9.4-12.4) fL Immature Gran % (0-4) % Seg Neutrophils % % Lymphocytes % % Monocytes % % Eosinophils % % Basophils % % Neutrophils # (1.6-8.9) K/mcL Lymphocytes # (0.6-4.6) K/mcL Monocytes # (0.0-1.3) K/mcL Eosinophils # (0.0-0.6) K/mcL Basophils # (0.0-0.2) K/mcL PT (9.4-12.1) Seconds INR APTT (26.0-36.0) Seconds Sodium (136-145) mEq/L Potassium (3.5-5.1) mEq/L Chloride (98-107) mEq/L Carbon Dioxide (23-29) mEq/L BUN (8-23) mg/dL Creatinine (0.60-1.20) mg/dL Est GFR ( Amer) (> 60) Est GFR (Non-Af Amer) (> 60) BUN/Creatinine Ratio (6-26) Glucose (70-105) mg/dL Calculated Osmolality (280-300) Calcium (8.6-10.3) mg/dL Magnesium (1.6-2.6) mg/dL Troponin I < 0.03 (< 0.04) ng/mL B-Natriuretic Peptide 64 (Less than 100) pg/mL TSH (0.340-5.600) mcIU/mL - Radiology Data Radiology results reviewed: Yes I reviewed the patient's radiology results. Chest X-Ray 11/18/17 00:49 IMPRESSION: Minimal left basilar airspace disease, likely atelectasis. D/ / Michelle Driver MD / Michelle Driver MD Interpreting Provider: Michelle Driver MD - EKG Data EKG #1 EKG attestation: Yes I reviewed and interpreted this EKG. EKG results narrative: EKG demonstrates atrial fibrillation with rapid ventricular response with a rate of 163. Right bundle branch block. Long QRS duration of 123. Poor R- wave progression. ST depressions noted in aVL. No gross ST elevations. Repeat EKG after Lopressor refill sinus rhythm with a rate of 68 bpm. Left axis deviation. Right bundle branch block. Prolonged DE interval of 205. Prolonged QRS yazdanism of 131. Poor R-wave progression. No gross ST elevations or depressions. T-wave inversion in lead 3 unchanged from previous. Critical Care Time Critical Care Time: Yes Total Critical Care Time: 40 Attestation: Critical care performed: Time is exclusive of separately billable procedures. Time includes: direct patient care, patient reassessment, coordination of patient care, interpretation of data (laboratory data, radiology data, and respiratory data), review of patient's medical records, medical consultation and documentation of patient care. Procedures included in critical care time: Procedures excluded from critical care time: Mikal.Kimberly - Rowdy Situation: Demographics, MOA Background: Presenting Complaint, Relevant PMH, Meds, & Allergies Assessment: Vital Signs, Course and respsone to treatment, Exam Concerns, Patient/Family Expectation, Pertinant Lab Results Recommendation: Barrier(s) to disposition, Recommendation based on pending studies, treatments, or consults SCarol Report Given to: Dr. Ji Reno Repor Time: 03:24 Attestation Statement - Attestation Attestation: I, Dago Palencia MD, personally evaluated this patient and discussed their management with the resident physician. I reviewed the resident's note and agree with the documented findings, medical decision making, and plan of care. 81-year-old female presents to the emergency department with a complaint that she awoke from sleep tonight with chest pain and palpitations. She states it felt like her heart was racing. On arrival here patient found to be in atrial fibrillation RVR. She has a history of atrial fibrillation related to her CABG in 2016. She was on Coumadin for a while but has been off the Coumadin for some time. On examination patient is a well-developed well-nourished well-appearing elderly female in no acute distress. She is alert and oriented 3. There is no cyanosis or diaphoresis. Chest is nontender to palpation. Breath sounds are clear and equal bilaterally. Heart regular rate and rhythm at time of my examination which was after the patient had converted back to normal sinus rhythm. Abdomen is soft and nontender with normal bowel sounds. Initial EKG showed atrial fibrillation with RVR. Labs reviewed. Troponin negative. Chest x-ray shows minimal left basilar airspace disease, likely atelectasis. Patient received a Cardizem bolus and started on Cardizem drip. She then developed some rash and itching from the Cardizem and remembered that she had had an allergic reaction in the past to Cardizem. Cardizem was discontinued and she received Lopressor IV. She then converted to a normal sinus rhythm. The hospitalist, Dr. Workman, was consulted and accepted the admission of the patient.
[2017-11-18 01:34] LABS: Magnesium 1.8 mg/dL (1.6-2.6); Potassium 3.8 mEq/L (3.5-5.1)
[2017-11-18 01:45] LABS: Thyroid Stimulating Hormone 9.158 mcIU/mL (0.340-5.600)
[2017-11-18] MEDS ORDERED: *HR* Metoprolol 5 MG/5 ML VIAL IVP SCH (01:45)
[2017-11-18] MEDS ORDERED: Naloxone 0.4 MG/ML INJ IVP PRN (03:54)
--- NOTE | 2017-11-18 04:16 | Internal Med History&Physical ---
Date of Encounter: 11/18/17 Time of Encounter: 03:30 Assessment and Plan (1) Atrial fibrillation with RVR Current visit: Yes Status: Acute Switch to NSR now. Pt has hx of paroxysmal A. fib which happens after her CABG surgery. Patient was placed on Coumadin but was discontinued later because A Fib was a considered postsurgical and patient remains on normal sinus rhythm. Patient has developed bradycardia and her metoprolol was decreased from 50mg po bid to 12.5mg bid in last June. - Will cont cardiac monitoring. - Will keep metoprolol 12.5 mg po bid now but consult cardio for further adjustment. - Will keep ASA 81mg po daily and follow cardio recommendation for anticoagulation. (2) Chest pain Current visit: No Status: Acute Pt has hx of CAD with recent stents placed. Chest pain developped on A Fib RVR with HR 160, consider demand ischemia. Chest pain resolved when HR get down. - Cont cardiac monitoring - Track 3 sets of troponin. - Cardio consult. Qualifiers: Chest pain type: precordial pain Qualified Code(s): R07.2 - Precordial pain (3) DVT prophylaxis Current visit: No Status: Acute Heparin SC (4) Ischemic cardiomyopathy Current visit: No Status: Acute Most recent Echo reviewed, LVEF 45%. Cont lasix, BB. Pt is not sure if she is on ACEI/ARB. will add losartan 12.5mg po daily as pt also has HTN (5) CAD (coronary artery disease), lime coronary artery Current visit: No Status: Chronic S/P stent, cont DAPT, BB, and statin. NTG sl PRN Qualifiers: [place] vs. transplanted heart: lime heart Associated angina: angina presence unspecified Qualified Code(s): I25.10 - Atherosclerotic heart disease of lime coronary artery without angina pectoris (6) HTN (hypertension) Current visit: No Status: Chronic Cont home meds Qualifiers: Hypertension type: essential hypertension Qualified Code(s): I10 - Essential (primary) hypertension Internal Medicine - H&P: HPI Chief complaint: chest pain Admitted From: Home Plans for Post Hospital Care: Home History of present illness: Ms. Phipps is a 81 year old female with Hx of CAD s/p CABG and stents, HTN, systolic CHF with recent LVEF 45%, paroxysmal A. fib after CABG, presented to ER for chest pain. Patient said the pain started this evening, located in mid chest, radiated to both shoulders, pressure-like, with mild shortness of breath. Patient denies nausea or diaphoresis. Patient has palpitation. In the emergency room, she was found A Fib RVR. Patient was placed on Cardizem drip but developed allergic reaction, causing hives. Patient was given Benadryl and itching and rashes has improved. Patient was given IV metoprolol 5 mg once and her heart rate getting down to 60s and switch to normal sinus rhythm. Patient also was given sublingual nitroglycerin. Her chest pain has resolved after her heart rate gets down to normal. Patient was admitted for further management. Past Med Surg Social Fam HX - Past Medical History Medical history: coronary artery disease, hyperlipidemia, hypertension Psychiatric history: no psych history - Past Surgical History Surgical History: appendectomy, cholecystectomy, coronary bypass (CABG), hysterectomy (Total), other - Social History Smoking Status: Never smoker Smokeless Tobacco Status: No Alcohol use: none Drug use: none - Family History Mother Family Member Ethnicity: Non- Living Status: Brother Family Member Ethnicity: Non- Living Status: Hx Family Cardiac Disorders: Yes (CO, HD) Hx Family Cancer: Yes (Lung with mets to brain) Sister Family Member Ethnicity: Non- Living Status: Still Living Hx Family Cardiac Disorders: Yes (HD) Grandfather Family Member Ethnicity: Non- Living Status: Hx Family Cardiac Disorders: Yes (CO, HD) Father Family Member Ethnicity: Non- Living Status: Hx Family Cardiac Disorders: Yes (CO) Internal Medicine - H&P: Meds Aspirin [Lo-Dose Aspirin EC] 81 mg PO DAILY 10/15/17 [History] Atorvastatin [Lipitor] 40 mg PO HS 10/15/17 [History] Furosemide [Lasix] 20 mg PO DAILY 10/15/17 [History] Metoprolol [Lopressor] 12.5 mg PO BID 10/15/17 [History] Pantoprazole Sodium [Protonix] 40 mg PO DAILY 10/15/17 [History] 3 Allergy/AdvReac Type Severity Reaction Status Date / Time diltiazem Allergy Hives Verified 11/18/17 03:54 Sulfa (Sulfonamide Allergy unknown Verified 11/18/17 00:38 Antibiotics) Iodinated Contrast- Oral and AdvReac Swelling Verified 11/18/17 00:38 IV Dye of [Iodinated Contrast Media - Lip/Tongue/Throat IV Dye] All Systems PM: A 10-system review of systems was performed and is negative for pertinent findings except as documented above in the HPI. - Constitutional Vitals: Temp Pulse Resp BP Pulse Ox 98.1 F 66 17 157/84 97 11/18/17 04:08 11/18/17 04:08 11/18/17 04:08 11/18/17 04:08 11/18/17 04:08 General appearance: Present: A&O X 3, no acute distress, answers questions appropriately - Head Head exam: Present: atraumatic, normocephalic - Eye Eye exam: Present: PERRL, conjuntiva pink, sclera anicteric Pupils: Present: PERRL - Neck Neck exam general surgery: Present: supple, trachea midline. Absent: lymphadenopathy - Respiratory Respiratory exam: Present: CTAB. Absent: accessory muscle use, rales, rhonchi, wheezes - Cardiovascular Cardiovascular exam: Present: RRR, +S1, +S2. Absent: diastolic murmur, gallop, rubs, systolic murmur - GI/Abdominal GI/Abdominal exam: Present: normal bowel sounds, soft, no peritoneal signs. Absent: distended, tenderness - Extremities Exam Extremities exam: Present: pedal edema (mild to moderate pedal edema b/l), warm , radial pulses palpable and symmetrical. Absent: calf tenderness, cyanotic - Neurological Exam Neurological exam: Present: CN II-XII intact, oriented X3, no focal deficits. Absent: pronater drift, facial droop, speech deficit - Skin Skin exam: Present: dry, intact Internal Med - H&P Results - Labs CBC & Chem 7: 11/18/17 00:51 11/18/17 00:51 - EKG Data -: EKG Interpreted by Myself (Complete RBBB plus left anterior fascicular block) EKG shows normal: sinus rhythm Rate: normal - EKG Data Prior EKG available for review: yes When compared to previous EKG: there is no significant change
[2017-11-18] MEDS ORDERED: Nitroglycerin 0.4 MG TAB.SUBL SL PRN (04:31)
[2017-11-18] MEDS ORDERED: *HR* Heparin 5,000 UNIT/ML VIAL SQ SCH (06:00)
[2017-11-18] MEDS ORDERED: Furosemide 20 MG TABLET PO SCH (09:00)
[2017-11-18] MEDS ORDERED: Aspirin Enteric Coated 81 MG Tablet PO SCH (09:00)
--- NOTE | 2017-11-18 10:20 | Cardiology Consult Note ---
<MaryaViji Librado - Last Filed: 11/18/17 15:08> Date of Encounter: 11/18/17 Time of Encounter: 10:13 Assessment and Plan (1) Atrial fibrillation with RVR Current Visit: Yes Status: Acute Patient converted to NSR with dose of IV metoprolol with HR dropping to 60's. Allergic reaction to IV cardizem. Patient also history of few month history of anticoagulation with coumadin shortly after CABG in 2015. -Will continue patient on 12.5 BID lopresor. -Will start Eliquis 5 mg BID. -FU as an outpatient in 2-3 weeks-will be scheduled. -Cardiology signing off, please feel free to reach out with any further questions or concerns. (2) CAD (coronary artery disease), [place] coronary artery Current Visit: No Status: Chronic Patient with history of CABG at [facility] in October 2015. -[facility] 05/24/2017- severe three vessel CAD, PTCA/GREGOR to the RCA. S/P CABG 2 of 3 patent bypass grafts. -Continue BB, Imdur, plavix, lipitor, ASA. Qualifiers: [place] vs. transplanted heart: [place] heart Associated angina: angina presence unspecified Qualified Code(s): I25.10 - Atherosclerotic heart disease of [place] coronary artery without angina pectoris (3) Elevated troponin Current Visit: No Status: Acute Troponins 0.05, 0.03. -Flat and adynamic. Likely demand secondary to atrial fibrillation with RVR. -Continue rate control of a fib. Discussion w patient/family: The assessment and plan as outlined above was discussed with the patient and/or family members who expressed understanding and agreement. All questions were answered. Thank you for involving us in the care of your patient. Please call with any questions. History of Present Illness Consult date: 11/18/17 Requesting physician: Grisel Workman Consult reason: A fib RVR, senstive to BB, hx of bradycardia, c/s Anticoagulation Chief complaint: chest discomfort History of present illness: Ms. Phipps is a 81 year old female with past medical history of coronary artery disease status post CABG in October 2015 at [facility] and [facility] with stents in May 2017, hypertension, systolic CHF with recent LVEF 45%, paroxysmal A. fib after CABG in 2015, and GERD presented to ER with complaints of chest pain with onset 30-45 minutes prior to arrival. Patient reported chest pain being located in the retrosternal area with radiation out laterally. She describes this pain as dull and achy with associated dyspnea. Patient denied nausea or diaphoresis. She denied radiation to her arms or jaw. Patient did state this pain felt somewhat different from the pain she experienced prior to her previous myocardial infarctions. Patient was unsure if her chest pain was consistent with palpitations. In the emergency room, patient was found to be in A. fib with RVR. She was started on a Cardizem drip after which she developed an allergic reaction causing hives. Patient was given Benadryl and itching as well as rash resolved. Patient was then given IV metoprolol once and her heart rate dropped to 60s and she converted to normal sinus rhythm. Patient's chest pain resolved shortly after her heart rate went back down to normal. This morning, she is resting comfortably. She denies any chest pain, palpitations, or shortness of breath. She denies any abdominal pain, diarrhea, nausea, or vomiting. She denies any recent illnesses. She denies any cough or sputum production. Past Med Surg Social Fam HX - Past Medical History Attestation: Yes The following information was validated with the patient. Source: patient, old records reviewed Medical history: coronary artery disease, hyperlipidemia, hypertension, myocardial infarction Psychiatric history: no psych history - Past Surgical History Surgical History: angioplasty/stent, appendectomy, cholecystectomy, coronary bypass (CABG), hysterectomy, other - Social History Smoking Status: Never smoker Smokeless Tobacco Status: No Alcohol use: none Drug use: none - Family History Mother Family Member Ethnicity: Non- Living Status: Brother Family Member Ethnicity: Non- Living Status: Hx Family Cardiac Disorders: Yes (MYOCARDIAL INFARCTION.) Hx Family Cancer: Yes (Lung with mets to brain) Sister Family Member Ethnicity: Non- Living Status: Still Living Hx Family Cardiac Disorders: Yes (HD) Grandfather Family Member Ethnicity: Non- Living Status: Hx Family Cardiac Disorders: Yes (NM, HD) Father Family Member Ethnicity: Non- Living Status: Hx Family Cardiac Disorders: Yes (NM) Medications and Allergies Aspirin [Lo-Dose Aspirin EC] 81 mg PO DAILY 10/15/17 [History] Atorvastatin [Lipitor] 40 mg PO HS 10/15/17 [History] Metoprolol [Lopressor] 12.5 mg PO BID 10/15/17 [History] Pantoprazole Sodium [Protonix] 40 mg PO DAILY 10/15/17 [History] Clopidogrel [Plavix] 75 mg PO DAILY 11/18/17 [History] Isosorbide MONOnitrate (24 HR) [Imdur] 30 mg PO DAILY 11/18/17 [History] 3 Allergy/AdvReac Type Severity Reaction Status Date / Time diltiazem Allergy Hives Verified 11/18/17 03:54 Sulfa (Sulfonamide Allergy unknown Verified 11/18/17 00:38 Antibiotics) Iodinated Contrast- Oral and AdvReac Swelling Verified 11/18/17 00:38 IV Dye of [Iodinated Contrast Media - Lip/Tongue/Throat IV Dye] All Systems Review: A 10-system review of systems was performed and is negative for pertinent findings except as documented above in the HPI. - Constitutional Constitutional: no fatigue, no fever(s), no frequent falls, no headache(s) - Cardiovascular Cardiovascular: dyspnea on exertion (intermittent), palpitations, no chest pain at rest, no chest pain with exertion, no irregular heart rhythm, no radiating jaw, neck or arm pain, no lightheadedness, no orthopnea, no syncope - Respiratory Respiratory: dyspnea, no cough - Gastrointestinal Gastrointestinal: no abdominal pain, no constipation, no diarrhea, no nausea - Genitourinary Genitourinary: no dysuria, no hematuria - Integumentary Integumentary: no erythema, no rash Physical Examination Vital Signs, Last 4 Hours Temp Pulse Resp BP Pulse Ox 11/18/17 07:17 97.8 F 63 16 147/76 98 General: Conversant, No Apparent Distress HEENT: Atraumatic, Normocephaly, Mucus Membranes Moist Neck: No JVD, Normal carotid pulses Cardiac: Reg Rate and Rhythm, Normal S1 and S2, No Murmur Lungs: Normal Breath Sounds, No Wheeze, Rales, Rhonchi Neuro: Alert and responsive, No focal deficits noted Abdomen: Soft, Non-Tender Skin: No rashes noted on visualized skin Musculoskeletal: No Chest Wall Tenderness Extremities: No Clubbing, No Cyanosis, No Edema Results 11/18/17 00:51 11/18/17 00:51 Lab Results 11/18/17 04:41 Troponin I 0.05 H* Consult Discharge Plan - Plan Referrals: Aristeo White MD [Primary Care Provider] - <Minh Myles - Last Filed: 11/18/17 15:24> Date of Encounter: 11/18/17 - Attending Attestation I examined this patient and my medical decision-making was reviewed with the Resident Physician. I agree with the documented findings, disposition and treatment plan as described except to the extent set forth below. Recurrent AF. Last episode several years ago, currently in NSR. Would add anticoagulation but difficult to adjust other meds due to allergies and history of bradycardia. Assessment and Plan Discussion w patient/family: The assessment and plan as outlined above was discussed with the patient and/or family members who expressed understanding and agreement. All questions were answered. Thank you for involving us in the care of your patient. Please call with any questions. History of Present Illness History of present illness: Ms. Phipps is a 81 year old female All Systems Review: A 10-system review of systems was performed and is negative for pertinent findings except as documented above in the HPI. Results 11/18/17 00:51 11/18/17 00:51 Lab Results 11/18/17 11/18/17 04:41 10:16 Troponin I 0.05 H* 0.07 H*
[2017-11-18] MEDS ORDERED: Apixaban 5 MG TABLET PO SCH (10:45)
[2017-11-18 15:49] VITALS: BP 135/72
--- NOTE | 2017-11-18 17:55 | Discharge Summary ---
Date of Encounter: 11/18/17 Time of Encounter: 17:51 - Discharge Diagnosis (1) Atrial fibrillation with RVR Priority: Primary Status: Acute Comments: 1 patient was in A. fib RVR in the ER she converted to normal sinus rhythm after receiving 1 dose of IV metoprolol. Patient does have a history of allergy to IV Cardizem. She does have a history of experiencing A. fib after CABG in 2016 she was on anticoagulation for a few months and then stopped. She was seen by cardiology who advised to continue patient with 12.5 Lopressor twice a day as well as to start her on [place] 5 mg twice a day He will follow up with cardiology in 2-3 weeks (2) Elevated troponin Priority: Secondary Status: Acute Comments: This is most likely related to demand ischemia she will follow up with cardiology as outpatient (3) CAD (coronary artery disease), [place] coronary artery Priority: Secondary Status: Chronic Comments: Patient has a history of CABG ACL G were 2015 left heart Aches/04/2017 severe three-vessel CAD-GREGOR to the RCA We will continue with beta adrian and her Plavix Lipitor and aspirin Follow up with cardiology ( Qualifiers: [place] vs. transplanted heart: [place] heart Associated angina: angina presence unspecified Qualified Code(s): I25.10 - Atherosclerotic heart disease of [place] coronary artery without angina pectoris - Discharge Medications Prescriptions: Apixaban [Eliquis] 5 mg PO BID #60 tablet Home Medications: Aspirin [Lo-Dose Aspirin EC] 81 mg PO DAILY 10/15/17 [History] Atorvastatin [Lipitor] 40 mg PO HS 10/15/17 [History] Metoprolol [Lopressor] 12.5 mg PO BID 10/15/17 [History] Apixaban [Eliquis] 5 mg PO BID #60 tablet 11/18/17 [Rx] Aspirin Enteric Coated [Aspirin EC] 81 mg PO DAILY tablet. 11/18/17 [Rx] Clopidogrel [Plavix] 75 mg PO DAILY 11/18/17 [History] Clopidogrel [Plavix] 75 mg PO DAILY tablet 11/18/17 [Rx] Furosemide [Lasix] 20 mg PO DAILY tablet 11/18/17 [Rx] Isosorbide MONOnitrate (24 HR) [Imdur] 30 mg PO DAILY 11/18/17 [History] Losartan [Cozaar] 12.5 mg PO DAILY tablet 11/18/17 [Rx] Nitroglycerin 0.4 mg SL Q5MIN PRN tab.subl 11/18/17 [Rx] Omeprazole [PriLOSEC] 20 mg PO DAILY capsule. 11/18/17 [Rx] Allergies/Adverse Reactions: 3 Allergy/AdvReac Type Severity Reaction Status Date / Time diltiazem Allergy Hives Verified 11/18/17 03:54 Sulfa (Sulfonamide Allergy unknown Verified 11/18/17 00:38 Antibiotics) Iodinated Contrast- Oral and AdvReac Swelling Verified 11/18/17 00:38 IV Dye of [Iodinated Contrast Media - Lip/Tongue/Throat IV Dye] Date of admission: 11/18/17 03:30 Primary care physician: Aristeo White MD Consults: 11/18/17 03:59 Consult to Cardiology [CONS] Routine Comment: Consulting Provider: Cardiology Magaly Reason for Consult: A Fib RVR, sensitive to BB (Hx of bradycardia), consult for AC as well. Call Completed: No Discharging clinician: Josefina Jacobs Anticipated date of discharge: 11/18/17 - Patient Status Disposition: Home, Self-Care Condition: Good Functional capacity at discharge: independent ambulation Overall status at discharge: patient is progressing back to baseline - Discharge Instructions Instructions: Atrial Fibrillation (DC), Chest Pain (DC) Follow Up With: Aristeo White MD [Primary Care Provider] - Hospital course: Ms. Phipps is a 81 year old female past medical history of coronary artery disease status post CABG in October 2015 at [facility] and left heart catheter with stents in May 2017 hypertension systolic CHF with recent LVEF 45% paroxysmal A. fib with CABG in 2016 and GERD. Patient presented to the ER last night complaining of chest pain the onset 3045 minutes prior to arrival. Pain was midsternal nonradiating which she describes as tall and achy with associated dyspnea. She denies any nausea or diaphoresis. He felt the pain was different from her previous [place]. Upper arrival to the ER was found she was in A. fib RVR. Patient was initiated on Cardizem drip which he developed allergic reaction causing hives. She was given Benadryl and the rash resolved. She was given IV metoprolol and her heart rate dropped to 60s and converted to normal sinus rhythm. Herpetic chest pain resolved shortly after her heart rate decreased to normal. Today she was seen by cardiology who reviewed previous echoes and lab work. She will be initiated on Elavil close and continue with her beta adrian. She has not had any more chest pain or episodes of atrial fibrillation cardiology advised for patient to follow-up with them and 2-3 weeks continue with beta adrian and her Plavix Lipitor and aspirin. Patient is hemodynamic is stable at this time and will be discharged home. - Time Spent with Patient Total time spent providing and/or coordinating discharge services: - Constitutional Vitals: Temp Pulse Resp BP Pulse Ox 98.7 F 65 16 135/72 94 11/18/17 15:48 11/18/17 15:48 11/18/17 15:48 11/18/17 15:48 11/18/17 15:48 General appearance: Present: A&O X 3, no acute distress, answers questions appropriately - Head Head exam: Present: atraumatic, normocephalic - Eye Eye exam: Present: PERRL, conjuntiva pink, sclera anicteric Pupils: Present: PERRL - Neck Neck exam general surgery: Present: supple, trachea midline. Absent: lymphadenopathy - Respiratory Respiratory exam: Present: CTAB. Absent: accessory muscle use, rales, rhonchi, wheezes - Cardiovascular Cardiovascular exam: Present: RRR, +S1, +S2. Absent: diastolic murmur, gallop, rubs, systolic murmur - GI/Abdominal GI/Abdominal exam: Present: normal bowel sounds, soft, no peritoneal signs. Absent: distended, tenderness - Extremities Exam Extremities exam: Present: warm, radial pulses palpable and symmetrical. Absent : calf tenderness, cyanotic, pedal edema - Neurological Exam Neurological exam: Present: CN II-XII intact, oriented X3, no focal deficits. Absent: pronater drift, facial droop, speech deficit - Skin Skin exam: Present: dry, intact
--- NOTE | 2017-11-19 13:15 | Electrocardiograph Report ---
[address] [place], [place] [address] Test Date: 2017-11-18 Pat Name: Tali Phipps Department: 102 Room: 3B23 Gender: F Casting Technician: : 1935 Requested By: Jaspreet Albarado Order Number: [id number] Reading MD: Minh Myles Measurements Intervals [place] Rate: 163 P: AR: 0 QRS: -73 QRSD: 123 T: 64 QT: 291 QTc: 381 Interpretive Statements ATRIAL FIBRILLATION WITH RAPID VENTRICULAR RESPONSE RIGHT BUNDLE BRANCH BLOCK LEFT ANTERIOR FASCICULAR BLOCK VOLTAGE CRITERIA FOR LVH ST DEPRESSION, CONSIDER SUBENDOCARDIAL INJURY Electronically Signed On 11-19-2017 13:13:57 EST by Minh Myles
--- NOTE | 2017-11-19 13:25 | Electrocardiograph Report ---
[place] [address] Test Date: 2017-11-18 Pat Name: Tali Phipps Department: 104 Room: 3B23 Gender: F Stage Producer: KIKI : 1935 Requested By: Jaspreet Albarado Order Number: [id number] Reading MD: Minh Myles Measurements Intervals [place] Rate: 68 P: 33 VA: 205 QRS: -63 QRSD: 131 T: -4 QT: 426 QTc: 443 Interpretive Statements SINUS RHYTHM RIGHT BUNDLE BRANCH BLOCK LEFT ANTERIOR FASCICULAR BLOCK VOLTAGE CRITERIA FOR LVH Electronically Signed On 11-19-2017 13:23:39 EST by Minh Myles
== END 2017-11-18 18:15 | disposition home or self-care (01) ==
LOC: EMEROO 00:34 → 3BNU 00:34
PROVIDERS: ADMIT Internal Medicine; ATTEND Hospitalist

== ENCOUNTER 2018-01-01 03:42 | Observation (INO) ==
[2018-01-01] MEDS ORDERED: Aspirin 81 MG TAB.CHEW PO ONE (04:55)
[2018-01-01 05:35] LABS: Basophils % 0.7 %; Eosinophils # 0.1 K/mcL (0.0-0.6); Eosinophils % 2.7 %; Hematocrit 39.2 % (35.3-44.9); Hemoglobin 13.1 g/dL (11.5-15.4); Immature Granulocytes % 0.2 % (0-4); Lymphocytes # 1.7 K/mcL (0.6-4.6); Lymphocytes % 38.9 %; Mean Corpuscular HGB Conc 33.4 g/dL (31.6-35.5); Mean Corpuscular Volume 89.7 fL (83.0-100.0); Mean Platelet Volume 10.4 fL (9.4-12.4); Monocytes # 0.5 K/mcL (0.0-1.3); Monocytes % 12.1 %; Platelet Count 215 K/mcL (140-400); Red Blood Count 4.37 M/mcL (3.82-4.97); Red Cell Distribution Width 13.2 % (11.5-14.5); Segmented Neutrophils % 45.4 %
[2018-01-01 05:39] LABS: BUN/Creatinine Ratio 24 (6-26); Blood Urea Nitrogen 24 mg/dL (8-23); Calcium 8.8 mg/dL (8.6-10.3); Carbon Dioxide 22 mEq/L (23-29); Chloride 108 mEq/L (98-107); Glucose 116 mg/dL (70-105); Osmolality,Calculated 293 (280-300); Potassium 3.8 mEq/L (3.5-5.1); Sodium 139 mEq/L (136-145); eGFR For African Americans > 60 (> 60); eGFR For Non-African Americans 54 (> 60)
[2018-01-01 05:40] LABS: Troponin I < 0.03 ng/mL (< 0.04)
[2018-01-01 05:41] LABS: INR 1.1; Prothrombin Time 12.4 Seconds (9.4-12.1)
[2018-01-01 05:43] LABS: Activated Partial Thrombo Time 28.1 Seconds (26.0-36.0)
[2018-01-01 05:54] LABS: Thyroid Stimulating Hormone 6.461 mcIU/mL (0.340-5.600)
--- NOTE | 2018-01-01 05:55 | Emergency Department Note ---
Disposition Clinical Impression: Atrial fibrillation with RVR Chest pain Qualifiers: Chest pain type: unspecified Qualified Code(s): R07.9 - Chest pain, unspecified Disposition: Home, Self-Care Condition: Good Instructions: Atrial Fibrillation (ED) Reasons to Return/Additional Instructions: 1. Please call your primary care or cardiology provider to schedule an appointment for reevaluation this month and to discuss your visit to the Emergency Department. 2. Return to Emergency Department with any chest pain, fever, confusion, shortness of breath, palpitations, worsening symptoms or any new concerns. 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 Denies: nausea, vomiting, diaphoresis, dyspnea Treatments prior to arrival chest pain: nitroglycerin - Related Data Home Medications Medication Instructions Recorded Confirmed Aspirin [Lo-Dose Aspirin EC] 81 mg PO DAILY 10/15/17 11/18/17 Atorvastatin [Lipitor] 40 mg PO HS 10/15/17 11/18/17 Metoprolol [Lopressor] 12.5 mg PO BID 10/15/17 11/18/17 Clopidogrel [Plavix] 75 mg PO DAILY 11/18/17 11/18/17 Isosorbide MONOnitrate (24 HR) 30 mg PO DAILY 11/18/17 11/18/17 [Imdur] Previous Rx's Medication Instructions Recorded Apixaban [Eliquis] 5 mg PO BID #60 tablet 11/18/17 Aspirin Enteric Coated [Aspirin EC] 81 mg PO DAILY tablet. 11/18/17 Clopidogrel [Plavix] 75 mg PO DAILY tablet 11/18/17 Furosemide [Lasix] 20 mg PO DAILY tablet 11/18/17 Losartan [Cozaar] 12.5 mg PO DAILY tablet 11/18/17 Nitroglycerin 0.4 mg SL Q5MIN PRN tab.subl 11/18/17 Omeprazole [PriLOSEC] 20 mg PO DAILY capsule. 11/18/17 Allergies Allergy/AdvReac Type Severity Reaction Status Date / Time diltiazem Allergy Hives Verified 01/01/18 03:48 Sulfa (Sulfonamide Allergy unknown Verified 01/01/18 03:48 Antibiotics) Iodinated Contrast- Oral and AdvReac Swelling Verified 01/01/18 03:48 IV Dye of [Iodinated Contrast Media - Lip/Tongue/Throat IV Dye] All systems ED: reviewed and negative except as stated. Review of Systems: As Per HPI Constitutional: Denies: fever, chills, weakness Eyes: Denies: vision change ENT ED: Denies: throat pain Cardiovascular: Reports: as per HPI Respiratory: Denies: dyspnea Gastrointestinal: Denies: abdominal pain, nausea, vomiting, diarrhea Genitourinary: Denies: dysuria Musculoskeletal: Denies: back pain, neck pain Integumentary: Denies: rash Neurological: Denies: headache Endocrine: Denies: fatigue Hematological/Lymphatic: Denies: easy bleeding Allergic/Immunologic: Denies: facial swelling Chest Pain PMH - Past Medical History Medical history: Reports: atrial fibrillation, coronary artery disease, hyperlipidemia, hypertension, kidney stones, myocardial infarction Surgical history: Reports: angioplasty/stent, appendectomy, cholecystectomy, coronary bypass (CABG), hysterectomy, other Psychiatric history: Reports: no psych history CANAL BOAT CAPTAIN history: Reports: no CANAL BOAT CAPTAIN history - Social History Smoking Status: Never smoker Alcohol use: Reports: none Drug use: Reports: none Physical Exam - General Limitations: no limitations General appearance: alert, in no apparent distress - Head Head exam: normocephalic - Eye Eye exam: Present: EOMI. Absent: conjunctival injection - ENT ENT exam: mucous membranes moist - Neck Neck exam: Present: full ROM - Chest Chest inspection: Present: symmetric chest wall rise - Respiratory Respiratory exam: Present: normal lung sounds bilaterally. Absent: respiratory distress, wheezes, stridor, accessory muscle use - Cardiovascular Cardiovascular exam: Present: regular rate, normal rhythm - Abdominal Exam Abdominal exam: Present: soft, Non-Tender - Extremities Exam Extremities exam: Present: normal inspection, full ROM, normal capillary refill - Back Exam Back exam: Present: full ROM - Neurological Exam Neurological exam: Present: alert, oriented X3 - Psychiatric Psychiatric exam: Present: normal affect, normal mood - Skin Skin exam: Present: warm, dry, intact, normal color, rash. Absent: cyanosis Course Course Narrative: Pt presents , just prior to arrival. She states it is coming with a racing heart. She converted to her previous MIs, however states that there is no shortness of breath. Patient does have a history of A. fib. She had been tachycardia upon arrival here in triage with a rate 136, however, upon EKG and arrival to exam room. Her rate had normalized no longer tachycardic, and appeared regular. Cardiac workup initiated. - Reevaluation(s) Reevaluation #1: REviewed EKG with Dr. Palencia. Sinus rhythm, testicular rate 71. Initial vital 136, and tone history of A. fib, with RVR. This time patient's pain is subsided, and she is now regular. I discussed patient with Dr. Palencia, who had face time with patient and agreed with workup, and advised for 4 hour troponin and if normal pt can be discharged if she remains asymptomatic. Time: 05:00 Reevaluation #2: At this time, due to shift change care of this patient will be transferred to day shift provider Randall Kaur CNP. Please see his further documentation for details. Pt remains pain free, not hypoxic, vitals stable. Discussed patient with Randall. At this time I feel patient may be discharged to home if repeat troponin wnl, and to have patient . However, please see Randall's documentation for final details and disposition. Vital Signs Temperature 97.4 F L 01/01/18 03:45 Pulse Rate 136 01/01/18 03:45 Respiratory Rate 20 01/01/18 03:45 Blood Pressure 204/76 01/01/18 03:45 O2 Sat by Pulse Oximetry 96 01/01/18 03:45 Temperature 97.4 F L 01/01/18 03:45 Pulse Rate 64 01/01/18 06:10 Respiratory Rate 16 01/01/18 06:10 Blood Pressure 157/95 01/01/18 06:10 O2 Sat by Pulse Oximetry 98 01/01/18 06:10 Oxygen Delivery Oxygen Delivery Room Air Chest Pain - Lab Data Lab results reviewed: Yes I reviewed the patient's lab results. Result diagrams: 01/01/18 05:01 01/01/18 05:01 Lab Results 01/01/18 01/01/18 01/01/18 Range/Units 05:01 05:01 05:01 WBC 4.4 (4.3-11.1) K/mcL RBC 4.37 (3.82-4.97) M/mcL Hgb 13.1 (11.5-15.4) g/dL Hct 39.2 (35.3-44.9) % MCV 89.7 (83.0-100.0) fL MCH 30.0 (28.0-33.3) pg MCHC 33.4 (31.6-35.5) g/dL RDW 13.2 (11.5-14.5) % Plt Count 215 (140-400) K/mcL MPV 10.4 (9.4-12.4) fL Immature Gran % 0.2 (0-4) % Seg Neutrophils % 45.4 % Lymphocytes % 38.9 % Monocytes % 12.1 % Eosinophils % 2.7 % Basophils % 0.7 % Neutrophils # 2.0 (1.6-8.9) K/mcL Lymphocytes # 1.7 (0.6-4.6) K/mcL Monocytes # 0.5 (0.0-1.3) K/mcL Eosinophils # 0.1 (0.0-0.6) K/mcL Basophils # 0.0 (0.0-0.2) K/mcL PT 12.4 H (9.4-12.1) Seconds INR 1.1 APTT 28.1 (26.0-36.0) Seconds Sodium 139 (136-145) mEq/L Potassium 3.8 (3.5-5.1) mEq/L Chloride 108 H (98-107) mEq/L Carbon Dioxide 22 L (23-29) mEq/L BUN 24 H (8-23) mg/dL Creatinine 0.99 (0.60-1.20) mg/dL Est GFR ( Amer) > 60 (> 60) Est GFR (Non-Af Amer) 54 L (> 60) BUN/Creatinine Ratio 24 (6-26) Glucose 116 H (70-105) mg/dL Calculated Osmolality 293 (280-300) Calcium 8.8 (8.6-10.3) mg/dL Troponin I < 0.03 (< 0.04) ng/mL TSH 6.461 H (0.340-5.600) mcIU/mL - Radiology Data Radiology results reviewed: Yes I reviewed the patient's radiology results. - EKG Data EKG attestation: Yes I reviewed and interpreted this EKG. EKG results narrative: vent rate 71 bpm, sinus with occasional PVC's. VT interval 187, QRS duration 132 , QT/QTc 393/416
--- NOTE | 2018-01-01 07:35 | Emergency Department Note ---
Disposition Clinical Impression: Paroxysmal atrial fibrillation Chest pain Qualifiers: Chest pain type: unspecified Qualified Code(s): R07.9 - Chest pain, unspecified Disposition: Admitted As Inpatient Condition: Fair Instructions: Atrial Fibrillation (ED) Referrals: Aristeo White MD [Primary Care Provider] - Jered Modi DO [Partnered Physician] - Forms: ED Satisfaction Letter Time of Disposition: 09:32 Chest Pain HPI - General Chief Complaint: ED Chest Pain Stated Complaint: cp/high heart rate Time Seen by Provider: 01/01/18 04:36 Source: patient Limitations: no limitations - History of Present Illness Pain Location: substernal Severity scale (1-10): 7 Worsens with: exertion Context: other (h/o A fib) Associated symptoms: Reports: palpitations. Denies: nausea, vomiting, diaphoresis, dyspnea - Related Data Home Medications Medication Instructions Recorded Confirmed Aspirin [Lo-Dose Aspirin EC] 81 mg PO DAILY 10/15/17 11/18/17 Atorvastatin [Lipitor] 40 mg PO HS 10/15/17 11/18/17 Metoprolol [Lopressor] 12.5 mg PO BID 10/15/17 11/18/17 Clopidogrel [Plavix] 75 mg PO DAILY 11/18/17 11/18/17 Isosorbide MONOnitrate (24 HR) 30 mg PO DAILY 11/18/17 11/18/17 [Imdur] Previous Rx's Medication Instructions Recorded Apixaban [Eliquis] 5 mg PO BID #60 tablet 11/18/17 Aspirin Enteric Coated [Aspirin EC] 81 mg PO DAILY tablet. 11/18/17 Clopidogrel [Plavix] 75 mg PO DAILY tablet 11/18/17 Furosemide [Lasix] 20 mg PO DAILY tablet 11/18/17 Losartan [Cozaar] 12.5 mg PO DAILY tablet 11/18/17 Nitroglycerin 0.4 mg SL Q5MIN PRN tab.subl 11/18/17 Omeprazole [PriLOSEC] 20 mg PO DAILY capsule. 11/18/17 Allergies Allergy/AdvReac Type Severity Reaction Status Date / Time diltiazem Allergy Hives Verified 01/01/18 03:48 Sulfa (Sulfonamide Allergy unknown Verified 01/01/18 03:48 Antibiotics) Iodinated Contrast- Oral and AdvReac Swelling Verified 01/01/18 03:48 IV Dye of [Iodinated Contrast Media - Lip/Tongue/Throat IV Dye] Constitutional: Denies: fever, chills, weakness Eyes: Denies: vision change ENT ED: Denies: throat pain Cardiovascular: Reports: as per HPI Respiratory: Denies: dyspnea Gastrointestinal: Denies: abdominal pain, nausea, vomiting, diarrhea Genitourinary: Denies: dysuria Musculoskeletal: Denies: back pain, neck pain Integumentary: Denies: rash Neurological: Denies: headache Endocrine: Denies: fatigue Hematological/Lymphatic: Denies: easy bleeding Allergic/Immunologic: Denies: facial swelling Chest Pain PMH - Past Medical History Medical history: Reports: atrial fibrillation, coronary artery disease, hyperlipidemia, hypertension, kidney stones, myocardial infarction Surgical history: Reports: angioplasty/stent, appendectomy, cholecystectomy, coronary bypass (CABG), hysterectomy, other Psychiatric history: Reports: no psych history LIQUOR COMMISSIONER history: Reports: no LIQUOR COMMISSIONER history - Social History Smoking Status: Never smoker Alcohol use: Reports: none Drug use: Reports: none Physical Exam - General Limitations: no limitations General appearance: alert, in no apparent distress Course Course Narrative: 0600: I have assumed care of this patient from HALIMA Puckett due to mid-level shift change. Please see Italo's documentation for care performed prior to my arrival. Briefly, this is an alert and oriented nontoxic-appearing 82-year- old female that presented for a sudden onset of substernal chest pain and a sensation of an elevated heart rate of approximately 1 hour prior to arrival. While the patient was being triaged, her heart rate had an abrupt decrease, and her pain subsided. By the time EKG was performed, she was in normal sinus rhythm. She does have a history of atrial fibrillation with rapid ventricular response. She is on Eliquis. Italo consult with Dr. Palencia, ED attending regarding this patient. As the patient's symptoms have resolved, and she is currently in a normal sinus rhythm, Dr. Palencia recommended a four-hour delta troponin. 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 Vital Signs Temperature 97.4 F L 01/01/18 03:45 Pulse Rate 136 03/17/18 03:45 Respiratory Rate 20 01/01/18 03:45 Blood Pressure 204/76 01/01/18 03:45 O2 Sat by Pulse Oximetry 96 01/01/18 03:45 Temperature 97.4 F L 01/01/18 03:45 Pulse Rate 63 01/01/18 08:46 Respiratory Rate 15 01/01/18 08:46 Blood Pressure 131/66 01/01/18 08:46 O2 Sat by Pulse Oximetry 98 01/01/18 08:46 Oxygen Delivery Oxygen Delivery Room Air Chest Pain - MDM Narrative Medical decision making narrative: 09: The patient remains pain-free at this time. She is in sinus rhythm at this time. Her troponin level has, however, based from less than 0.03 to 0.03. For this reason, we will admit the patient to the hospital service for further evaluation. 929: I spoke with Dr. Mccarty of the hospitalist service who has accepted the patient for admission to the hospitalist care for further evaluation. - Medical Records Medical records reviewed: Yes I reviewed the patient's medical records. - Lab Data Lab results reviewed: Yes I reviewed the patient's lab results. Result diagrams: 01/01/18 05:01 01/01/18 05:01 Lab Results 01/01/18 01/01/18 01/01/18 Range/Units 05:01 05:01 05:01 WBC 4.4 (4.3-11.1) K/mcL RBC 4.37 (3.82-4.97) M/mcL Hgb 13.1 (11.5-15.4) g/dL Hct 39.2 (35.3-44.9) % MCV 89.7 (83.0-100.0) fL MCH 30.0 (28.0-33.3) pg MCHC 33.4 (31.6-35.5) g/dL RDW 13.2 (11.5-14.5) % Plt Count 215 (140-400) K/mcL MPV 10.4 (9.4-12.4) fL Immature Gran % 0.2 (0-4) % Seg Neutrophils % 45.4 % Lymphocytes % 38.9 % Monocytes % 12.1 % Eosinophils % 2.7 % Basophils % 0.7 % Neutrophils # 2.0 (1.6-8.9) K/mcL Lymphocytes # 1.7 (0.6-4.6) K/mcL Monocytes # 0.5 (0.0-1.3) K/mcL Eosinophils # 0.1 (0.0-0.6) K/mcL Basophils # 0.0 (0.0-0.2) K/mcL PT 12.4 H (9.4-12.1) Seconds INR 1.1 APTT 28.1 (26.0-36.0) Seconds Sodium 139 (136-145) mEq/L Potassium 3.8 (3.5-5.1) mEq/L Chloride 108 H (98-107) mEq/L Carbon Dioxide 22 L (23-29) mEq/L BUN 24 H (8-23) mg/dL Creatinine 0.99 (0.60-1.20) mg/dL Est GFR ( Amer) > 60 (> 60) Est GFR (Non-Af Amer) 54 L (> 60) BUN/Creatinine Ratio 24 (6-26) Glucose 116 H (70-105) mg/dL Calculated Osmolality 293 (280-300) Calcium 8.8 (8.6-10.3) mg/dL Troponin I < 0.03 (< 0.04) ng/mL TSH 6.461 H (0.340-5.600) mcIU/mL 01/01/18 Range/Units 08:03 WBC (4.3-11.1) K/mcL RBC (3.82-4.97) M/mcL Hgb (11.5-15.4) g/dL Hct (35.3-44.9) % MCV (83.0-100.0) fL MCH (28.0-33.3) pg MCHC (31.6-35.5) g/dL RDW (11.5-14.5) % Plt Count (140-400) K/mcL MPV (9.4-12.4) fL Immature Gran % (0-4) % Seg Neutrophils % % Lymphocytes % % Monocytes % % Eosinophils % % Basophils % % Neutrophils # (1.6-8.9) K/mcL Lymphocytes # (0.6-4.6) K/mcL Monocytes # (0.0-1.3) K/mcL Eosinophils # (0.0-0.6) K/mcL Basophils # (0.0-0.2) K/mcL PT (9.4-12.1) Seconds INR APTT (26.0-36.0) Seconds Sodium (136-145) mEq/L Potassium (3.5-5.1) mEq/L Chloride (98-107) mEq/L Carbon Dioxide (23-29) mEq/L BUN (8-23) mg/dL Creatinine (0.60-1.20) mg/dL Est GFR ( Amer) (> 60) Est GFR (Non-Af Amer) (> 60) BUN/Creatinine Ratio (6-26) Glucose (70-105) mg/dL Calculated Osmolality (280-300) Calcium (8.6-10.3) mg/dL Troponin I 0.03 (< 0.04) ng/mL TSH (0.340-5.600) mcIU/mL - Radiology Data Radiology results reviewed: Yes I reviewed the patient's radiology results. Chest X-Ray 01/01/18 03:50 IMPRESSION: No acute disease. D/ / Ye Sanchez MD / Ye Sanchez MD Interpreting Provider: Ye Sanchez MD - EKG Data EKG attestation: Yes I reviewed and interpreted this EKG.
[2018-01-01] MEDS ORDERED: Ondansetron 4 MG/2 ML VIAL IVP PRN (09:40)
[2018-01-01] MEDS ORDERED: Nitroglycerin 0.4 MG TAB.SUBL SL PRN (09:40)
--- NOTE | 2018-01-01 10:09 | Internal Med History&Physical ---
Date of Encounter: 01/01/18 Time of Encounter: 10:02 Assessment and Plan (1) Chest pain Current visit: Yes Status: Acute Possibly from demand ischemia atrial fibrillation with RVR which patient did note at home to have heart rate of 174 bpm. Now converted to normal sinus rhythm currently. Of note on last admission, her troponin did seem to be flat and adynamic at 0.05. - Trend troponin to rule out ACS - Monitor heart rate - Given aspirin in ED. - Nitro, oxycodone sublingual prn - supplemental O2 as needed Qualifiers: Chest pain type: unspecified Qualified Code(s): R07.9 - Chest pain, unspecified (2) Paroxysmal atrial fibrillation Current visit: Yes Status: Acute Continue Elquis and metoprolol (3) Elevated troponin Current visit: No Status: Acute Patient has history of flat and dynamic elevated troponin at baseline. Given chest pain with high risk factors, will trend enzymes. (4) Gastritis Current visit: No Status: Acute Qualifiers: Gastritis type: unspecified gastritis Chronicity: unspecified Gastritis bleeding: without bleeding Qualified Code(s): K29.70 - Gastritis, unspecified , without bleeding (5) Ischemic cardiomyopathy Current visit: No Status: Acute (6) CAD (coronary artery disease), [place] coronary artery Current visit: No Status: Chronic Qualifiers: [place] vs. transplanted heart: [place] heart Associated angina: angina presence unspecified Qualified Code(s): I25.10 - Atherosclerotic heart disease of [place] coronary artery without angina pectoris (7) CKD (chronic kidney disease) stage 3, GFR 30-59 ml/min Current visit: No Status: Chronic (8) GERD (gastroesophageal reflux disease) Current visit: No Status: Chronic Qualifiers: Esophagitis presence: esophagitis presence not specified Qualified Code(s) : K21.9 - Gastro-esophageal reflux disease without esophagitis (9) HLD (hyperlipidemia) Current visit: No Status: Chronic Qualifiers: Hyperlipidemia type: mixed hyperlipidemia Qualified Code(s): E78.2 - Mixed hyperlipidemia (10) HTN (hypertension) Current visit: No Status: Chronic Qualifiers: Hypertension type: essential hypertension Qualified Code(s): I10 - Essential (primary) hypertension (11) DVT prophylaxis Current visit: No Status: Acute Patient on [facility] Internal Medicine - H&P: HPI History of present illness: Ms. Phipps is a 82 year old female with history of atrial fibrillation on Eliquis, CAD, HPL, HTN, RI, CABG presented for onset of chest pain and palpitations. Symptoms started at 2 AM today and lasted for about three hours. Pain rated 8/10 at worse and tried nitro which eased the pain a little. She checked her HR at home and states it was 174 with brief episode of shortness of breath. She states she had a tight sensation in her chest without radiation. She denies n/v, diaphoresis, numbness tingling. Patient arrived to ED with hypertension with BP 204/76 with HR 136. Without any medication her vital signs improved and currently HR is 61 bpm with BP 148/74. An EKG on arrival showed normal sinus rhythm and patient's symptoms also subsided around that time as well. She had initial troponin drawn that was negative and a repeat troponin drawn 4 hours later showed a slight increase at 0.03. She is currently chest pain free. She is currently chest pain free. She has allergy to Cardizem and she takes metoprolol. patient was recently discharged from hospital on 11/18/17 for atrial fibrillation with RVR. Cardiology was consulted at that time and she improved heart rate with IV metoprolol and was set to follow-up with cardiology as outpatient. Past Med Surg Social Fam HX - Past Medical History Medical history: atrial fibrillation, coronary artery disease, hyperlipidemia, hypertension, kidney stones, myocardial infarction Psychiatric history: no psych history - Past Surgical History Surgical History: angioplasty/stent, appendectomy, cholecystectomy, coronary bypass (CABG), hysterectomy, other - Social History Smoking Status: Never smoker Smokeless Tobacco Status: No Alcohol use: none Drug use: none - Family History Mother Family Member Ethnicity: Non- Living Status: Brother Family Member Ethnicity: Non- Living Status: Hx Family Cardiac Disorders: Yes (MYOCARDIAL INFARCTION.) Hx Family Cancer: Yes (Lung with mets to brain) Sister Family Member Ethnicity: Non- Living Status: Still Living Hx Family Cardiac Disorders: Yes (HD) Grandfather Family Member Ethnicity: Non- Living Status: Hx Family Cardiac Disorders: Yes (RI, HD) Father Family Member Ethnicity: Non- Living Status: Hx Family Cardiac Disorders: Yes (RI) Internal Medicine - H&P: Meds Aspirin [Lo-Dose Aspirin EC] 81 mg PO DAILY 10/15/17 [History] Atorvastatin [Lipitor] 40 mg PO HS 10/15/17 [History] Metoprolol [Lopressor] 12.5 mg PO BID 10/15/17 [History] Apixaban [Eliquis] 5 mg PO BID #60 tablet 11/18/17 [Rx] Aspirin Enteric Coated [Aspirin EC] 81 mg PO DAILY tablet. 11/18/17 [Rx] Clopidogrel [Plavix] 75 mg PO DAILY 11/18/17 [History] Clopidogrel [Plavix] 75 mg PO DAILY tablet 11/18/17 [Rx] Furosemide [Lasix] 20 mg PO DAILY tablet 11/18/17 [Rx] Isosorbide MONOnitrate (24 HR) [Imdur] 30 mg PO DAILY 11/18/17 [History] Losartan [Cozaar] 12.5 mg PO DAILY tablet 11/18/17 [Rx] Nitroglycerin 0.4 mg SL Q5MIN PRN tab.subl 11/18/17 [Rx] Omeprazole [PriLOSEC] 20 mg PO DAILY capsule. 11/18/17 [Rx] 3 Allergy/AdvReac Type Severity Reaction Status Date / Time diltiazem Allergy Hives Verified 01/01/18 10:01 Sulfa (Sulfonamide Allergy unknown Verified 01/01/18 10:01 Antibiotics) Iodinated Contrast- Oral and AdvReac Swelling Verified 01/01/18 10:01 IV Dye of [Iodinated Contrast Media - Lip/Tongue/Throat IV Dye] All Systems PM: A 10-system review of systems was performed and is negative for pertinent findings except as documented above in the HPI. - Constitutional Constitutional: no chills, no fever(s), no night sweats - EENT Eyes: no change in vision, no discharge, no pain, no photophobia Ears: no ear discharge, no ear pain, no tinnitus Nose, mouth and throat: no dysphagia, no nasal discharge, no neck pain, no sore throat - Cardiovascular Cardiovascular ROS IM: chest pain, edema, palpitations, no diaphoresis, no dyspnea, no lightheadedness, no syncope - Respiratory Respiratory: dyspnea (short episode), no cough, no wheezing, no excessive phlegm production - Gastrointestinal Gastrointestinal: no abdominal pain, no diarrhea, no hematemesis, no hematochezia, no melena, no nausea, no vomiting - Genitourinary Genitourinary: no change in urinary stream, no dysuria, no flank pain, no hematuria - Musculoskeletal Musculoskeletal ROS IM: no numbness, no tingling - Integumentary Integumentary IM: no rash, no unusual bruising - Neurological Neurological ROS: no confusion, no convulsions, no focal weakness, no numbness, no tingling, no tremor(s) - Hematologic/Lymphatic Hematologic/Lymphatic: no easy bruising - Constitutional Vitals: Temp Pulse Resp BP Pulse Ox 97.4 F L 61 15 148/74 100 01/01/18 03:45 01/01/18 09:45 01/01/18 09:45 01/01/18 09:45 01/01/18 09:45 General appearance: Present: A&O X 3, no acute distress, answers questions appropriately - Head Head exam: Present: atraumatic, normocephalic - Eye Eye exam: Present: PERRL, conjuntiva pink, sclera anicteric Pupils: Present: PERRL - Neck Neck exam general surgery: Present: supple, trachea midline. Absent: lymphadenopathy - Respiratory Respiratory exam: Present: CTAB. Absent: accessory muscle use, rales, rhonchi, wheezes - Cardiovascular Cardiovascular exam: Present: RRR, +S1, +S2. Absent: diastolic murmur, gallop, rubs, systolic murmur - GI/Abdominal GI/Abdominal exam: Present: normal bowel sounds, soft, no peritoneal signs. Absent: distended, tenderness - Extremities Exam Extremities exam: Present: pedal edema (1+), warm, radial pulses palpable and symmetrical. Absent: calf tenderness, cyanotic - Neurological Exam Neurological exam: Present: CN II-XII intact, oriented X3, no focal deficits. Absent: pronater drift, facial droop, speech deficit - Skin Skin exam: Present: dry, intact Internal Med - H&P Results - Labs CBC & Chem 7: 01/01/18 05:01 01/01/18 05:01
[2018-01-01] MEDS ORDERED: Furosemide 20 MG TABLET PO PRN (10:16)
[2018-01-01] MEDS: Apixaban 5 MG TABLET PO SCH ×2 (14:12→20:44)
[2018-01-01] MEDS: Isosorbide MONOnitrate (24 HR) 30 MG TAB.ER.24H PO SCH (14:13)
[2018-01-01] MEDS: Cholecalciferol (D-3) 1,000 UNIT TABLET PO SCH ×2 (14:13→20:44)
[2018-01-01] MEDS ORDERED: Apixaban 5 MG TABLET PO SCH (21:00)
[2018-01-01] MEDS ORDERED: Cholecalciferol (D-3) 1,000 UNIT TABLET PO SCH (21:00)
[2018-01-02] MEDS ORDERED: Acetaminophen 325 MG TABLET PO PRN (03:53)
[2018-01-02 07:02] VITALS: BP 153/70
[2018-01-02 07:27] LABS: INR 1.3; Prothrombin Time 14.3 Seconds (9.4-12.1)
[2018-01-02 07:31] LABS: Albumin 3.7 g/dL (3.5-5.7); Albumin/Globulin Ratio 1.5 (1.1-2.2); Bilirubin,Total 0.5 mg/dL (0.3-1.0); Calcium 9.3 mg/dL (8.6-10.3); Globulin 2.4 g/dL (2.4-3.5); Magnesium 1.9 mg/dL (1.6-2.6); Total Protein 6.1 g/dL (6.4-8.9)
[2018-01-02 07:42] LABS: Basophils % 0.8 %; Eosinophils # 0.2 K/mcL (0.0-0.6); Eosinophils % 3.2 %; Hematocrit 37.4 % (35.3-44.9); Hemoglobin 12.5 g/dL (11.5-15.4); Lymphocytes # 2.1 K/mcL (0.6-4.6); Lymphocytes % 42.1 %; Mean Corpuscular HGB Conc 33.4 g/dL (31.6-35.5); Mean Corpuscular Hemoglobin 30.2 pg (28.0-33.3); Mean Corpuscular Volume 90.3 fL (83.0-100.0); Mean Platelet Volume 10.3 fL (9.4-12.4); Monocytes # 0.4 K/mcL (0.0-1.3); Monocytes % 8.7 %; Neutrophils # 2.3 K/mcL (1.6-8.9); Platelet Count 208 K/mcL (140-400); Red Blood Count 4.14 M/mcL (3.82-4.97); Red Cell Distribution Width 13.4 % (11.5-14.5); Segmented Neutrophils % 45.2 %
[2018-01-02] MEDS: Isosorbide MONOnitrate (24 HR) 30 MG TAB.ER.24H PO SCH (08:59)
[2018-01-02] MEDS: Apixaban 5 MG TABLET PO SCH (08:59)
[2018-01-02] MEDS: Cholecalciferol (D-3) 1,000 UNIT TABLET PO SCH (08:59)
[2018-01-02] MEDS ORDERED: Isosorbide MONOnitrate (24 HR) 30 MG TAB.ER.24H PO SCH (09:00)
[2018-01-02] MEDS ORDERED: Multivit/Ca/Min/Fe/FA 1 TAB TABLET PO SCH (09:00)
--- NOTE | 2018-01-02 15:50 | Discharge Summary ---
- NOTES TO OUTPATIENT PROVIDER Notes to Outpatient Provider: Follow-up with cardiology Date of Encounter: 01/02/18 Time of Encounter: 11:00 Hospital course: Patient is an 82-year-old female with past medical history significant for coronary artery disease, atrial fibrillation on Eliquis, hypertension and hyperlipidemia who presents to the ER on 01/01/18 due to elevated heart rate and chest pain. Patient reported that she woke up the morning of admission with substernal chest pain which she describes as pressure. Patient denied any radiation or associated symptoms. Patient took her pulse and said that her heart rate was in the 180s. Patient reports of taking nitroglycerin with some relief in symptoms. Patient decided to come to the ER for evaluation. Patient with history of CABG at [facility] in October 2015 and a C 05/24/2017- severe three vessel CAD, PTCA/GREGOR to the RCA. S/P CABG 2 of 3 patent bypass grafts. In the ER, her initial heart rate was 136 and blood pressure was 204/76. She was admitted to medical surgical floor for further evaluation. During patients hospital stay her cardiac biomarkers were negative and she has been asymptomatic and her heart rate remained in the 60s. Patient was ambulated around the nursing station and remained asystematic; denied any chest pain. Discussed with clinical rehab specialist who recommended that patient be followed up as outpatient. She will be discharged to follow-up with cardiology for continue monitor. - Time Spent with Patient Total time spent providing and/or coordinating discharge services: Less than 30 minutes - Discharge Medications Home Medications: Atorvastatin [Lipitor] 40 mg PO HS 10/15/17 [History] Metoprolol [Lopressor] 25 mg PO BID 10/15/17 [History] Apixaban [Eliquis] 5 mg PO BID #60 tablet 11/18/17 [Rx] Clopidogrel [Plavix] 75 mg PO DAILY 11/18/17 [History] Isosorbide MONOnitrate (24 HR) [Imdur] 30 mg PO DAILY 11/18/17 [History] Nitroglycerin 0.4 mg SL Q5MIN PRN tab.subl 11/18/17 [Rx] Cholecalciferol (D-3) [Vitamin D] 1,000 unit PO BID 01/01/18 [History] Furosemide [Lasix] 20 mg PO DAILY PRN 01/01/18 [History] Multivitamin [One Daily Essential] 1 tab PO DAILY 01/01/18 [History] Pantoprazole Sodium [Protonix] 40 mg PO DAILY 01/01/18 [History] Allergies/Adverse Reactions: 3 Allergy/AdvReac Type Severity Reaction Status Date / Time diltiazem Allergy Hives Verified 01/01/18 10:01 Sulfa (Sulfonamide Allergy unknown Verified 01/01/18 10:01 Antibiotics) Iodinated Contrast- Oral and AdvReac Swelling Verified 01/01/18 10:01 IV Dye of [Iodinated Contrast Media - Lip/Tongue/Throat IV Dye] Date of admission: 01/01/18 09:51 Primary care physician: Aristeo White MD - Constitutional Vitals: Temp Pulse Resp BP Pulse Ox 98.0 F 61 18 153/70 94 01/02/18 06:58 01/02/18 06:58 01/02/18 06:58 01/02/18 06:58 01/02/18 06:58 General appearance: Present: A&O X 3, no acute distress, answers questions appropriately - Respiratory Respiratory exam: Present: CTAB. Absent: accessory muscle use, rales, rhonchi, wheezes - Cardiovascular Cardiovascular exam: Present: RRR, +S1, +S2. Absent: diastolic murmur, gallop, rubs, systolic murmur - Patient Status Disposition: Home, Self-Care Condition: Fair - Discharge Instructions Follow Up With: Aristeo White MD [Primary Care Provider] -
--- NOTE | 2018-01-05 18:29 | Electrocardiograph Report ---
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
--- NOTE | 2018-01-05 18:40 | Electrocardiograph Report ---
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
== END 2018-01-02 16:20 | disposition home or self-care (01) ==
LOC: 3ANU 03:42 → EMEROO 03:42 → 3ANU 11:34
PROVIDERS: ADMIT Student in an Organized Health Care Education/Training Program; ATTEND Hospitalist

== ENCOUNTER 2018-08-16 18:28 | Observation (INO) ==
[2018-08-16] MEDS ORDERED: *HR* Metoprolol 5 MG/5 ML VIAL IVP ONE ×3 (18:57→19:12)
[2018-08-16] MEDS ORDERED: *HR* Metoprolol 5 MG/5 ML VIAL IVP PRN (19:03)
[2018-08-16] MEDS ORDERED: 0.9 % Sodium Chloride 500 ML IVC ONE ×2 (19:03→20:29)
--- NOTE | 2018-08-16 19:08 | Emergency Department Note ---
Disposition Clinical Impression: Atrial fibrillation with RVR, Hypokalemia, Hypomagnesemia Chest pain Qualifiers: Chest pain type: unspecified Qualified Code(s): R07.9 - Chest pain, unspecified Disposition: Admitted As Inpatient Condition: Fair Arrhythmia/Palpitations HPI - General Chief Complaint: ED Arrhythmia/Palpitations Stated Complaint: CP Time Seen by Provider: 08/16/18 18:45 Source: patient Mode of arrival: ambulatory Limitations: no limitations Nursing Notes Reviewed: Yes Vital Signs Reviewed: Yes - History of Present Illness HPI Narrative: 82-year-old female with a history of A. fib on Eliquis, hypertension, CAD status post CABG and stent present for evaluation of chest pain. Onset was prior to arrival. Patient notes sudden onset of chest pain in the anterior part of her chest without radiation. No nausea vomiting or diaphoresis. Patient denies any fevers or cough. Patient does have a past cardiac history. Patient did take 1 nitroglycerin prior to ED arrival. Upon arrival the patient was noted to be in A. fib RVR. States she does have a history of allergies to Cardizem. Patient states that she has been taking her Eliquis as well as her metoprolol as directed. Does have a recent medication change which includes her losartan. Denies any other changes in medications. Incidentally, the patient has had recent diagnosis of diverticulitis and has been having diarrhea. Patient's been on antibiotics. - Related Data Home Medications Medication Instructions Recorded Confirmed Atorvastatin [Lipitor] 40 mg PO HS 10/15/17 01/01/18 Metoprolol [Lopressor] 25 mg PO BID 10/15/17 01/01/18 Clopidogrel [Plavix] 75 mg PO DAILY 11/18/17 01/01/18 Isosorbide MONOnitrate (24 HR) 30 mg PO DAILY 11/18/17 01/01/18 [Imdur] Cholecalciferol (D-3) [Vitamin D] 1,000 unit PO BID 01/01/18 01/01/18 Furosemide [Lasix] 20 mg PO DAILY PRN 01/01/18 01/01/18 Multivitamin [One Daily Essential] 1 tab PO DAILY 01/01/18 01/01/18 Pantoprazole Sodium [Protonix] 40 mg PO DAILY 01/01/18 01/01/18 Previous Rx's Medication Instructions Recorded Apixaban [Eliquis] 5 mg PO BID #60 tablet 11/18/17 Nitroglycerin 0.4 mg SL Q5MIN PRN tab.subl 11/18/17 Ciprofloxacin HCl [Cipro] 500 mg PO BID #20 tablet 08/08/18 metroNIDAZOLE [Flagyl] 500 mg PO TID #30 tablet 08/08/18 Allergies Allergy/AdvReac Type Severity Reaction Status Date / Time diltiazem Allergy Hives Verified 01/01/18 10:01 Sulfa (Sulfonamide Allergy unknown Verified 01/01/18 10:01 Antibiotics) Iodinated Contrast- Oral and AdvReac Swelling Verified 01/01/18 10:01 IV Dye of [Iodinated Contrast Media - Lip/Tongue/Throat IV Dye] All systems ED: reviewed and negative except as stated. Constitutional: Denies: fever Cardiovascular: Reports: chest pain, palpitations Respiratory: Denies: cough, dyspnea Gastrointestinal: Denies: abdominal pain, nausea, vomiting Past Medical History - Past Medical History Source: patient Medical history: Reports: atrial fibrillation, coronary artery disease, hyperlipidemia, hypertension, kidney stones, myocardial infarction Surgical history: Reports: angioplasty/stent, appendectomy, cholecystectomy, coronary bypass (CABG), hysterectomy, other Psychiatric history: Reports: no psych history CHIEF DESIGN BRANCH history: Reports: no CHIEF DESIGN BRANCH history - Social History Smoking Status: Never smoker Smokeless Tobacco Status: No Alcohol use: Reports: none Drug use: Reports: none Physical Exam - General Limitations: no limitations General appearance: alert, in no apparent distress - Head Head exam: atraumatic, normocephalic, normal inspection - Eye Eye exam: Present: normal appearance, PERRL, EOMI - ENT ENT exam: normal exam, normal oropharynx, mucous membranes moist - Neck Neck exam: Present: normal inspection - Chest Chest inspection: Present: normal inspection, symmetric chest wall rise - Respiratory Respiratory exam: Present: normal lung sounds bilaterally. Absent: respiratory distress, prolonged expiratory phase - Cardiovascular Cardiovascular exam: Present: tachycardia, irregular rhythm. Absent: systolic murmur - Abdominal Exam Abdominal exam: Present: soft, Non-Tender - Extremities Exam Extremities exam: Present: normal inspection. Absent: pedal edema - Back Exam Back exam: Present: normal inspection - Neurological Exam Neurological exam: Present: alert - Skin Skin exam: Present: warm, dry, intact, normal color Course Course Narrative: Patient seen and evaluated upon arrival. Patient does appear to be in A. fib RVR. Patient is on beta blockers at home. We will continue that modality in the ED. Will give Lopressor 5 mg every 5 minutes when necessary tachycardia. Patient is hemodynamically compensated. We will continue the cardiac evaluation with labs chest x-ray disposition admission for A. fib RVR in the setting of chest pain. - Reevaluation(s) Reevaluation #1: Patient has had some improvement of HR but continues to be tachycardic. Time: 19:45 Reevaluation #2: Patient's heart rate continues to be in the 120s to 140s. Blood pressures preserved. Patient will get repleated with Potassium and Mag. Time: 20:11 Reevaluation #3: Patient's repeat EKG shows A. fib with a heart rate of 144. Left axis. Wide complex with presumed underlying right bundle. Awaiting cardiology callback. Time: 20:21 Additional Reevaluation(s): 2032: Patient did convert during the ED course. Shows normal sinus rhythm left axis deviation with a right bundle branch block. Patient did not receive any additional beta blockers in the ED. - Consultations Consultation #1: Discussed with Dr. Myles who recommended repeat dosing of the lopressor with the addition of amiodarone drip. Time: 20:31 Vital Signs Temperature 99.5 F 08/16/18 18:47 Pulse Rate 159 08/16/18 18:47 Respiratory Rate 20 08/16/18 18:47 Blood Pressure 143/88 08/16/18 18:47 O2 Sat by Pulse Oximetry 96 08/16/18 18:47 Temperature 99.5 F 08/16/18 18:47 Pulse Rate 80 08/16/18 20:23 Respiratory Rate 18 08/16/18 20:23 Blood Pressure 140/69 08/16/18 20:23 O2 Sat by Pulse Oximetry 98 08/16/18 20:23 Oxygen Delivery Oxygen Delivery Room Air Arrhythmia/Palpitations - [facility] Narrative Medical decision making narrative: Patient presented for concerns of chest pain. Upon arrival the patient was A. fib RVR. Patient was treated with Lopressor serial doses 3. Patient was also resuscitated with crystalloid. Patient eventually converted to normal sinus. Patient's chemistries show hypokalemic mag both of which were repleted. Patient agrees having GI losses with recent GI illness and diverticulitis. Patient will be admitted to the hospital service for electrolyte replacement monitoring and continued cardiac evaluation. Patient pain resolved after heart rate control. - Medical Records Medical records reviewed: Yes I reviewed the patient's medical records. Patient's records reviewed shows that the patient has had a recent stress test in April of this year. Negative for ischemia or infarct with an EF of 70%. - Lab Data Lab results reviewed: Yes I reviewed the patient's lab results. Result diagrams: 08/16/18 19:13 08/16/18 19:13 Lab Results 08/16/18 08/16/18 08/16/18 Range/Units 19:13 19:13 19:13 WBC 4.8 (4.3-11.1) K/mcL RBC 4.19 (3.82-4.97) M/mcL Hgb 12.8 (11.5-15.4) g/dL Hct 38.3 (35.3-44.9) % MCV 91.4 (83.0-100.0) fL MCH 30.5 (28.0-33.3) pg MCHC 33.4 (31.6-35.5) g/dL RDW 13.0 (11.5-14.5) % Plt Count 236 (140-400) K/mcL MPV 9.8 (9.4-12.4) fL Immature Gran % 0.2 (0-4) % Seg Neutrophils % 48.6 % Lymphocytes % 37.6 % Monocytes % 12.4 % Eosinophils % 0.6 % Basophils % 0.6 % Neutrophils # 2.4 (1.6-8.9) K/mcL Lymphocytes # 1.8 (0.6-4.6) K/mcL Monocytes # 0.6 (0.0-1.3) K/mcL Eosinophils # 0.0 (0.0-0.6) K/mcL Basophils # 0.0 (0.0-0.2) K/mcL PT 14.9 H (9.4-12.1) Seconds INR 1.3 APTT 31.5 (26.0-36.0) Seconds Sodium (136-145) mEq/L Potassium (3.5-5.1) mEq/L Chloride (98-107) mEq/L Carbon Dioxide (23-29) mEq/L BUN (8-23) mg/dL Creatinine (0.60-1.20) mg/dL Est GFR ( Amer) (> 60) Est GFR (Non-Af Amer) (> 60) BUN/Creatinine Ratio (6-26) Glucose (70-105) mg/dL Calculated Osmolality (280-300) Calcium (8.6-10.3) mg/dL Phosphorus (2.7-4.5) mg/dL Magnesium (1.6-2.6) mg/dL Troponin I (< 0.04) ng/mL B-Natriuretic Peptide 72 (Less than 100) pg/mL 08/16/18 08/16/18 Range/Units 19:13 19:13 WBC (4.3-11.1) K/mcL RBC (3.82-4.97) M/mcL Hgb (11.5-15.4) g/dL Hct (35.3-44.9) % MCV (83.0-100.0) fL MCH (28.0-33.3) pg MCHC (31.6-35.5) g/dL RDW (11.5-14.5) % Plt Count (140-400) K/mcL MPV (9.4-12.4) fL Immature Gran % (0-4) % Seg Neutrophils % % Lymphocytes % % Monocytes % % Eosinophils % % Basophils % % Neutrophils # (1.6-8.9) K/mcL Lymphocytes # (0.6-4.6) K/mcL Monocytes # (0.0-1.3) K/mcL Eosinophils # (0.0-0.6) K/mcL Basophils # (0.0-0.2) K/mcL PT (9.4-12.1) Seconds INR APTT (26.0-36.0) Seconds Sodium 137 (136-145) mEq/L Potassium 3.0 L (3.5-5.1) mEq/L Chloride 101 (98-107) mEq/L Carbon Dioxide 25 (23-29) mEq/L BUN 19 (8-23) mg/dL Creatinine 1.27 H (0.60-1.20) mg/dL Est GFR ( Amer) 49 L (> 60) Est GFR (Non-Af Amer) 40 L (> 60) BUN/Creatinine Ratio 15 (6-26) Glucose 169 H (70-105) mg/dL Calculated Osmolality 290 (280-300) Calcium 9.5 (8.6-10.3) mg/dL Phosphorus 1.9 L (2.7-4.5) mg/dL Magnesium 1.4 L (1.6-2.6) mg/dL Troponin I < 0.03 (< 0.04) ng/mL B-Natriuretic Peptide (Less than 100) pg/mL - Radiology Data Radiology results reviewed: Yes I reviewed the patient's radiology results. Chest X-Ray 08/16/18 19:03 IMPRESSION: No acute cardiopulmonary findings. D/ / Salazar Chinchilla / Salazar Chinchilla Interpreting Provider: Salazar Chinchilla - EKG Data EKG attestation: Yes I reviewed and interpreted this EKG. EKG results narrative: Patient does have A. fib RVR rate of 172. Does appear to be wide QRS complex with right bundle branch morphology some her to her prior EKGs. Left axis deviation. Critical Care Time Critical Care Time: Yes Total Critical Care Time: 35 Attestation: The high probability of a clinically significant, sudden or life threatening deterioration of the [CV] system(s) required my full and direct attention, i ntervention and personal management. The aggregate critical care time was [35] minutes. This time is in addition to time spent performing reported procedures but includes the following: [x] Data Review and interpretation [x] Patient assessment and monitoring of vital signs [x] Documentation [x] Medication orders and management S.B.A.R. - S.B.A.R. Situation: Demographics Background: Presenting Complaint Assessment: Vital Signs, Course and respsone to treatment, Patient/Family Expectation Recommendation: Barrier(s) to disposition, Recommendation based on pending studies, treatments, or consults S.B.A.R. Report Given to: Dr. Bertrand S.B.AJose Repor Time: 21:04 Attestation Statement - Attestation Attestation: I examined this patient and my medical decision-making was reviewed with the Resident Physician, Dr. Hernandez. I agree with the documented findings, disposition and treatment plan as described except to the extent set forth below. Patient is 82-year-old white female with a history of atrial fibrillation on Eliquis, extensive CAD with prior CABG and stent placement. Patient comes to us today by EMS with tachycardia and chest pain. Patient states symptoms began abruptly at home a few hours prior to arrival while drinking water. Patient was hospitalized last week for acute diverticulitis and is still on antibiotics although symptoms have significantly improved. Patient's complaining of substernal chest pain and palpitations mild shortness of breath, no diaphoresis no abdominal pain or flank pain. I agree with patient's physical exam findings as documented. Patient's tachycardic and hypertensive on arrival. EKG shows an underlying right bundle branch block with atrial fibrillation with a heart rate in the 170s. Blood pressure stable. Patient was administered aspirin and Lopressor, 5 mg 3. Patient ultimately converted to sinus rhythm in the 80s. Repeat EKG was Dr. Bullard on the chart. Patient's lab evaluation shows some renal insufficiency hypokalemia and hypomagnesemia which are both being replaced currently in the ED. Cardiology was consulate from the ED and the hospitalist to accept the patient for admission.
[2018-08-16 19:36] LABS: Basophils % 0.6 %; Eosinophils % 0.6 %; Hematocrit 38.3 % (35.3-44.9); Hemoglobin 12.8 g/dL (11.5-15.4); Immature Granulocytes % 0.2 % (0-4); Lymphocytes # 1.8 K/mcL (0.6-4.6); Lymphocytes % 37.6 %; Mean Corpuscular HGB Conc 33.4 g/dL (31.6-35.5); Mean Corpuscular Hemoglobin 30.5 pg (28.0-33.3); Mean Corpuscular Volume 91.4 fL (83.0-100.0); Mean Platelet Volume 9.8 fL (9.4-12.4); Monocytes # 0.6 K/mcL (0.0-1.3); Monocytes % 12.4 %; Neutrophils # 2.4 K/mcL (1.6-8.9); Platelet Count 236 K/mcL (140-400); Red Blood Count 4.19 M/mcL (3.82-4.97); Segmented Neutrophils % 48.6 %
[2018-08-16 19:49] LABS: INR 1.3; Prothrombin Time 14.9 Seconds (9.4-12.1)
[2018-08-16 19:52] LABS: Activated Partial Thrombo Time 31.5 Seconds (26.0-36.0)
[2018-08-16 19:53] LABS: Magnesium 1.4 mg/dL (1.6-2.6); Phosphorous 1.9 mg/dL (2.7-4.5)
[2018-08-16 19:55] LABS: Blood Urea Nitrogen 19 mg/dL (8-23); Carbon Dioxide 25 mEq/L (23-29); Chloride 101 mEq/L (98-107); Sodium 137 mEq/L (136-145)
[2018-08-16 19:56] LABS: BUN/Creatinine Ratio 15 (6-26); Calcium 9.5 mg/dL (8.6-10.3); Glucose 169 mg/dL (70-105); Osmolality,Calculated 290 (280-300); Troponin I < 0.03 ng/mL (< 0.04); eGFR For Non-African Americans 40 (> 60)
[2018-08-16] MEDS ORDERED: Potassium Chloride Elixir 20 MEQ/15 ML UDC PO ONE (20:03)
[2018-08-16] MEDS ORDERED: Potassium Chloride 20 MEQ, Lidocaine 1% 2 ML in D5% in Water 250 ML IVPB ONE (20:24)
[2018-08-16] MEDS ORDERED: *HR* Metoprolol 5 MG/5 ML VIAL IVP SCH (20:30)
[2018-08-17] MEDS ORDERED: traMADol 50 MG TABLET PO PRN (07:29)
[2018-08-17] MEDS ORDERED: Naloxone 0.4 MG/ML INJ IVP PRN (07:29)
--- NOTE | 2018-08-17 08:16 | Internal Med History&Physical ---
Date of Encounter: 08/17/18 Time of Encounter: 08:10 Internal Medicine - H&P: HPI Chief complaint: Chest pain Admitted From: Home Plans for Post Hospital Care: Home History of present illness: Ms. Phipps is a 82 year old female past medical history significant for A. fib, hypertension, coronary artery disease status post CABG in 2016 and stent placement in 2017, CKD and a recent diagnosis of diverticulitis. Patient presented to the ED due to sudden onset of chest pain which started after she drank and ate something at home. Patient reports that she started having retro sternal 9/10, constant pressure like chest pain radiating to her back, right in the middle of her shoulders, she reports that the pain lasted more than 30 minutes, and she took a pill of nitroglycerin without relief for which she decided to come to the ED. She reports mild shortness of breath, and palpitation associated with the chest pain. denies nausea, vomiting, dizziness of lightheadedness. In the ED patient was found to be in A. Fib with RvR with the rate >150s. Patient reports being compliant with her home medications and not missing a single dose of her pills. During my evaluation patient reported that the chest pain resolved about midnight last night. Past Med Surg Social Fam HX - Past Medical History Medical history: atrial fibrillation, coronary artery disease, hyperlipidemia, hypertension, kidney stones, myocardial infarction Additional medical history: DIVERTICULITIS Psychiatric history: no psych history - Past Surgical History Surgical History: angioplasty/stent, appendectomy, cholecystectomy, coronary bypass (CABG), hysterectomy, other Additional surgical history: coronary stents - Social History Smoking Status: Never smoker Smokeless Tobacco Status: No Alcohol use: none Drug use: none - Family History Mother Family Member Ethnicity: Non- Living Status: Brother Family Member Ethnicity: Non- Living Status: Hx Family Cardiac Disorders: Yes (MYOCARDIAL INFARCTION.) Hx Family Cancer: Yes (Lung with mets to brain) Sister Family Member Ethnicity: Non- Living Status: Still Living Hx Family Cardiac Disorders: Yes (HD) Grandfather Family Member Ethnicity: Non- Living Status: Hx Family Cardiac Disorders: Yes ([place], HD) Father Family Member Ethnicity: Non- Living Status: Hx Family Cardiac Disorders: Yes (MN) Internal Medicine - H&P: Meds Atorvastatin [Lipitor] 40 mg PO HS 10/15/17 [History] Metoprolol [Lopressor] 25 mg PO BID 10/15/17 [History] Clopidogrel [Plavix] 75 mg PO DAILY 11/18/17 [History] Isosorbide MONOnitrate (24 HR) [Imdur] 60 mg PO DAILY 11/18/17 [History] Nitroglycerin 0.4 mg SL Q5MIN PRN tab.subl 11/18/17 [Rx] Cholecalciferol (D-3) [Vitamin D] 1,000 unit PO BID 01/01/18 [History] Furosemide [Lasix] 40 mg PO DAILY 01/01/18 [History] Multivitamin [One Daily Essential] 1 tab PO DAILY 01/01/18 [History] Pantoprazole Sodium [Protonix] 40 mg PO DAILY 01/01/18 [History] Ciprofloxacin HCl [Cipro] 500 mg PO BID #20 tablet 08/08/18 [Rx] metroNIDAZOLE [Flagyl] 500 mg PO TID #30 tablet 08/08/18 [Rx] Apixaban [Eliquis] 5 mg PO DAILY 08/16/18 [History] Losartan/Hydrochlorothiazide [Losartan-Hctz 100-25 mg Tab] 1 each PO DAILY 08/16/18 [History] Potassium Chloride [Klor-Con 10] 10 meq PO DAILY 08/16/18 [History] Allergy/AdvReac Type Severity Reaction Status Date / Time diltiazem Allergy Hives Verified 01/01/18 10:01 Sulfa (Sulfonamide Allergy unknown Verified 01/01/18 10:01 Antibiotics) Iodinated Contrast- Oral and AdvReac Swelling Verified 01/01/18 10:01 IV Dye of [Iodinated Contrast Media - Lip/Tongue/Throat IV Dye] All Systems PM: A 10-system review of systems was performed and is negative for pertinent findings except as documented above in the HPI. - Constitutional Constitutional: no chills, no fever(s) - EENT Eyes: no pain - Cardiovascular Cardiovascular ROS IM: chest pain, palpitations, no dyspnea on exertion, no lightheadedness, no orthopnea, no paroxysmal nocturnal dyspnea - Respiratory Respiratory: no cough, no dyspnea, no wheezing - Gastrointestinal Gastrointestinal: no abdominal pain, no melena, no nausea, no vomiting - Genitourinary Genitourinary: no dysuria, no hematuria, no urinary frequency - Musculoskeletal Musculoskeletal ROS IM: no back pain - Integumentary Integumentary IM: no rash - Neurological Neurological ROS: no headache(s), no weakness - Psychiatric Psychiatric: no anxiety - Endocrine Endocrine IM: no cold intolerance, no fatigue, no polydipsia, no polyphagia, no polyuria - Allergic/Immunologic Allergic/Immunologic: no wheezing Additional comments: Rest of the review of system negative. - Constitutional Vitals: Temp Pulse Resp BP Pulse Ox 98.6 F 54 16 143/72 94 08/17/18 06:44 08/17/18 06:44 08/17/18 06:44 08/17/18 06:44 08/17/18 06:44 Exam: Vitals: Reviewed General: Well-nourished, in no distress Skin: Warm and supple. HEENT: Moist mucous membranes. No conjunctivae pallor. Neck: No lymphadenopathy. No JVD. No carotid bruits. No palpable thyroid. Chest: Breath sounds are clear to auscultation bilaterally, no wheezing, rales or rhonchi. Heart: Irregularly regular, Normal S1 & S2. No rubs or murmurs. Abdomen: Obese, Non-distended, soft, mildly tender to palpation in the left lower quadrant. Extremities: No cyanosis or edema. No calf tenderness. Normal distal pulses. Neurological: Awake, alert and oriented to person, place and time. No focal deficits. Psych: Affect appropriate. Internal Med - H&P Results - Labs CBC & Chem 7: 08/16/18 19:13 08/16/18 19:13 Labs: Short CBC 08/16/18 Range/Units 19:13 WBC 4.8 (4.3-11.1) K/mcL Hgb 12.8 (11.5-15.4) g/dL Hct 38.3 (35.3-44.9) % Plt Count 236 (140-400) K/mcL Neutrophils # 2.4 (1.6-8.9) K/mcL BMP 08/16/18 19:13 Sodium 137 Potassium 3.0 L Chloride 101 Carbon Dioxide 25 BUN 19 Creatinine 1.27 H Glucose 169 H Calcium 9.5 Cardiac Enzymes 08/16/18 Range/Units 19:13 Troponin I < 0.03 (< 0.04) ng/mL - Impressions ITS Impressions Chest X-Ray 08/16/18 19:03 IMPRESSION: No acute cardiopulmonary findings. D/ / Salazar Chinchilla / Salazar Chinchilla Interpreting Provider: Salazar Chinchilla - Assessment and plan (1) Atrial fibrillation with RVR Current Visit: Yes Status: Acute Assessment and plan: Possible due to electrolytes derangement vs r/o ACS Plan Telemetry monitoring will resume home dose of metoprolol 25 mg by mouth twice a day Metoprolol 5 mg IV Q5min PRN for HR >120 Serial trops Cardiology consulted as patient with significant Hx of CAD WIll continue anticaogulation with Apixabn 5mg/PO daily. (2) Chest pain Current Visit: Yes Status: Resolved Assessment and plan: Possible due to A. Fib with RvR vs r/o ACS Plan of care as above. nitroglycerin 0.4mg SubL Q5min x3 PNR for chest pain tramadol 50mg/PO Q6HR for pain control Qualifiers: Chest pain type: unspecified Qualified Code(s): R07.9 - Chest pain, unspecified (3) Hypokalemia Current Visit: Yes Status: Acute Assessment and plan: Electrolyte replaced (4) Hypomagnesemia Current Visit: Yes Status: Acute Assessment and plan: Electrolyte replaced (5) DVT prophylaxis Current Visit: No Status: Acute Assessment and plan: Patient on an oral anticoagulant. (6) CAD (coronary artery disease), [place] coronary artery Current Visit: No Status: Chronic Assessment and plan: Hx of CABG in 2016 and stents placement in 2017. Continue clopidogrel 75 mg by mouth daily Qualifiers: [place] vs. transplanted heart: [place] heart Associated angina: angina presence unspecified Qualified Code(s): I25.10 - Atherosclerotic heart disease of [place] coronary artery without angina pectoris (7) CKD (chronic kidney disease) stage 3, GFR 30-59 ml/min Current Visit: No Status: Chronic Assessment and plan: Creatinine at baseline. Avoid nephrotoxic medication. (8) HLD (hyperlipidemia) Current Visit: No Status: Chronic Assessment and plan: Continue atorvastatin 40 mg by mouth at bedtime Qualifiers: Hyperlipidemia type: mixed hyperlipidemia Qualified Code(s): E78.2 - Mixed hyperlipidemia (9) HTN (hypertension) Current Visit: No Status: Chronic Assessment and plan: Blood pressure is well controlled. We will resume isosorbide and metoprolol. Qualifiers: Hypertension type: essential hypertension Qualified Code(s): I10 - Essential (primary) hypertension (10) Diverticulitis Current Visit: Yes Status: Acute Assessment and plan: Patient diagnosed with diverticulitis and Wednesday. We will continue by mouth antibiotics to complete treatment. On ciprofloxacin and metronidazole. - Time Spent With Patient Total time spent is greater than 50% in coordination of care (as documented) at patient's floor/unit and/or counseling patient: Greater than 35 minutes (40 minutes)
[2018-08-17] MEDS ORDERED: Nitroglycerin 0.4 MG TAB.SUBL SL PRN (08:28)
[2018-08-17 08:48] LABS: Magnesium 2.1 mg/dL (1.6-2.6)
[2018-08-17 09:18] LABS: BUN/Creatinine Ratio 17 (6-26); Blood Urea Nitrogen 17 mg/dL (8-23); Calcium 8.9 mg/dL (8.6-10.3); Carbon Dioxide 25 mEq/L (23-29); Chloride 108 mEq/L (98-107); Glucose 91 mg/dL (70-105); Osmolality,Calculated 289 (280-300); Potassium 3.8 mEq/L (3.5-5.1); Sodium 139 mEq/L (136-145); eGFR For Non-African Americans 53 (> 60)
[2018-08-17] MEDS: metroNIDAZOLE 500 MG TABLET PO SCH ×3 (09:24→20:32)
[2018-08-17] MEDS: Isosorbide MONOnitrate (24 HR) 60 MG TAB.ER.24H PO SCH (09:24)
[2018-08-17] MEDS: Apixaban 5 MG TABLET PO SCH ×2 (09:25→20:33)
--- NOTE | 2018-08-17 10:01 | Cardiology Consult Note ---
<Дмитрий Mclean - Last Filed: 08/17/18 12:11> Date of Encounter: 08/17/18 Time of Encounter: 09:49 Assessment and Plan (1) Elevated troponin Current Visit: Yes Status: Acute Initial troponin negative, then 0.60 in setting of A-Fib RVR, recent diverticulitis/kidney stones. Demand ischemia vs. NSTEMI. Trend for total of 3. Endorses chest pain over the past week intermittently, then episode yesterday prior to admission. Currently chest pain free. TTE 02/10/18 EF preserved 60%. Negative stress test 04/2018. LHC 05/24/2017: LM 95% stenosis. LAD proximal 70% stenosis, small vessel. D1 normal. CX 95% stenosis. RCA 80% stenosis (GREGOR x3). SVG-OM1 patient. SVG-RPDA 95% distal stenosis. JACKSON-mLAD patent. Recheck TTE to evaluate structure and function. Trend 3rd troponin. Will discuss and review with Dr. Soria. If troponin continues to rise or EF is decreased on TTE, will need to consider LHC. Continue to follow. (2) CAD (coronary artery disease), [place] coronary artery Current Visit: Yes Status: Chronic Hx of CABG and PCI. Continue Plavix, Statin, BB. Not on ASA due to being on Eliquis. Qualifiers: [place] vs. transplanted heart: [place] heart Associated angina: angina presence unspecified Qualified Code(s): I25.10 - Atherosclerotic heart disease of [place] coronary artery without angina pectoris (3) Paroxysmal atrial fibrillation Current Visit: Yes Status: Chronic Presented A-Fib RVR. Known hx of PAF. Initial episode s/p CABG, then PAF episode 12/2017 when pt was started on Eliquis, now with recurrence. Suspect current episode secondary to electrolyte imbalance with decreased PO intake due to dive rticulitis and kidney stones. K 3.0 and Mag 1.4 on admission--replaced. Anticoagulated on Eliquis. Discussed outpt EP referral given recurrence of PAF. Discussion w patient/family: The assessment and plan as outlined above was discussed with the patient and/or family members who expressed understanding and agreement. All questions were answered. Thank you for involving us in the care of your patient. Please call with any questions. I will discuss all the above with Dr. Soria and make changes as necessary. History of Present Illness Consult date: 08/17/18 Consult reason: A-Fib, elevated troponin Chief complaint: chest pain History of present illness: Ms. Phipps is a 82 year old female with PMH of CAD, NSTEMI (10/25/2015), s/p 3V CABG (10/27/2015, [facility]), PAF on Eliquis, [facility] 05/2017 for NSTEMI resulted in GREGOR x3 to RCA. Pt reports she developed chest pain yesterday after eating, midsternal radiating to between her shoulder blades, associated with dypnea and palpitations. She took SL nitro without relief. On presentation to ED she was found to be A-Fib RVR HR 150s. Reports chest pain subsided after she was rate controlled. Initial troponin negative, then 0.60. CP free currently. Pt does admit to having intermittent chest pain over the past week. Also admits to diverticulitis and kidney stones recently with decreased oral intake. Prior studies: Pharmacologic nuclear stress test 05/17/18: Perfusion imaging negative for ischemia or infarct. Gated EF 70%. TTE 02/10/2018: LVEF 60%. Normal LV chamber size wall thickness and function. Moderate LV diastolic dysfunction. Normal RV size and function. Mild MR, TR. Mild pulmonary hypertension. Holter monitor 03/04/2018: Average heart rate 65. Frequent PVCs averaging 207.5 per hour. Frequent PACs averaging 111.7 per hour. Occasional SVT, longest 7 beats. Event monitor 04/22/2018: Findings demonstrate sinus rhythm with occasional PVCs and PACs, sometimes in couplets. One 7 beat NSVT noted. [facility] 05/24/2017: LM 95% stenosis. LAD proximal 70% stenosis, small vessel. D1 normal. CX 95% stenosis. RCA 80% stenosis (GREGOR x3). SVG-OM1 patient. SVG-RPDA 95% distal stenosis. JACKSON-mLAD patent. Past Med Surg Social Fam HX - Past Medical History Medical history: atrial fibrillation, coronary artery disease, hyperlipidemia, hypertension, kidney stones, myocardial infarction Additional medical history: DIVERTICULITIS Psychiatric history: no psych history - Past Surgical History Surgical History: angioplasty/stent, appendectomy, cholecystectomy, coronary bypass (CABG), hysterectomy, other Additional surgical history: coronary stents - Social History Smoking Status: Never smoker Smokeless Tobacco Status: No Alcohol use: none Drug use: none - Family History Mother Family Member Ethnicity: Non- Living Status: Brother Family Member Ethnicity: Non- Living Status: Hx Family Cardiac Disorders: Yes (MYOCARDIAL INFARCTION.) Hx Family Cancer: Yes (Lung with mets to brain) Sister Family Member Ethnicity: Non- Living Status: Still Living Hx Family Cardiac Disorders: Yes (HD) Grandfather Family Member Ethnicity: Non- Living Status: Hx Family Cardiac Disorders: Yes (PA, HD) Father Family Member Ethnicity: Non- Living Status: Hx Family Cardiac Disorders: Yes (PA) Medications and Allergies Atorvastatin [Lipitor] 40 mg PO HS 10/15/17 [History] Clopidogrel [Plavix] 75 mg PO DAILY 11/18/17 [History] Isosorbide MONOnitrate (24 HR) [Imdur] 60 mg PO DAILY 11/18/17 [History] Nitroglycerin 0.4 mg SL Q5MIN PRN tab.subl 11/18/17 [Rx] Cholecalciferol (D-3) [Vitamin D] 1,000 unit PO BID 01/01/18 [History] Furosemide [Lasix] 40 mg PO DAILY 01/01/18 [History] Multivitamin [One Daily Essential] 1 tab PO DAILY 01/01/18 [History] Pantoprazole Sodium [Protonix] 40 mg PO DAILY 01/01/18 [History] Ciprofloxacin HCl [Cipro] 500 mg PO BID #20 tablet 08/08/18 [Rx] metroNIDAZOLE [Flagyl] 500 mg PO TID #30 tablet 08/08/18 [Rx] Apixaban [Eliquis] 5 mg PO DAILY 08/16/18 [History] Potassium Chloride [Klor-Con 10] 10 meq PO DAILY 08/16/18 [History] Losartan [Cozaar] 25 mg PO DAILY 08/17/18 [History] Metoprolol [Lopressor] 50 mg PO BID 08/17/18 [History] Allergy/AdvReac Type Severity Reaction Status Date / Time diltiazem Allergy Hives Verified 01/01/18 10:01 Sulfa (Sulfonamide Allergy unknown Verified 01/01/18 10:01 Antibiotics) Iodinated Contrast- Oral and AdvReac Swelling Verified 01/01/18 10:01 IV Dye of [Iodinated Contrast Media - Lip/Tongue/Throat IV Dye] All Systems Review: The remainder of the systems were reviewed and are negative - Cardiovascular Cardiovascular: as per HPI, chest pain at rest, chest pain with exertion, dyspnea at rest, dyspnea on exertion, irregular heart rhythm, radiating jaw, neck or arm pain, palpitations Physical Examination Vital Signs, Last 4 Hours Temp Pulse Resp BP Pulse Ox 08/17/18 06:44 98.6 F 54 16 143/72 94 Vital Signs Temp Pulse Resp BP Pulse Ox 08/17/18 06:44 98.6 F 54 16 143/72 94 08/17/18 03:57 98.0 F 65 17 146/79 95 08/16/18 23:08 97.4 F L 72 17 152/57 95 08/16/18 22:50 16 116/66 08/16/18 20:23 80 18 140/69 98 08/16/18 20:11 139 18 113/89 97 08/16/18 19:50 146 20 138/94 99 08/16/18 18:47 99.5 F 159 20 143/88 96 Intake and Output 08/16/18 08/17/18 08/17/18 23:59 07:59 15:59 Intake Total 500 / 500 866 / 866 Balance 500 / 500 866 / 866 Intake: IV Fluids 500 / 500 866 / 866 0.9 % Sodium Chloride 500 ML @ 500 / 500 500 / 500 999 mls/hr IVC .Q31M ONE Rx#: [id number] Magnesium Sulfate 2 GM In 0.9 % 104 / 104 Sodium Chloride 100 ML @ 104 mls/hr IVPB ONCE ONE Rx#: [id number] KCl 20 MEQ Xylocaine 2 ML In 262 / 262 Dextrose 5% 250 ML @ 131 mls/hr IVPB ONCE ONE Rx#:[id number] Other: Stool Size Small Stool Consistency loose Stool Color Brown # Voids 1 # Bowel Movements 1 Weight 72.631 kg General: Conversant, No Apparent Distress HEENT: Atraumatic, Normocephaly, Mucus Membranes Moist Neck: No JVD, Normal carotid pulses Cardiac: Reg Rate and Rhythm, Normal S1 and S2, No Murmur Lungs: Normal Breath Sounds, No Wheeze, Rales, Rhonchi Neuro: Alert and responsive, No focal deficits noted Abdomen: Soft, Non-Tender Skin: No rashes noted on visualized skin Musculoskeletal: No Chest Wall Tenderness Extremities: No Clubbing, No Cyanosis, No Edema Results 08/16/18 19:13 08/17/18 07:52 Lab Results 08/16/18 08/16/18 08/16/18 19:13 19:13 19:13 WBC 4.8 Hgb 12.8 Hct 38.3 Plt Count 236 INR 1.3 APTT 31.5 Sodium Potassium Chloride Carbon Dioxide BUN Creatinine Glucose Calcium Magnesium Troponin I B-Natriuretic Peptide 72 08/16/18 08/16/18 08/17/18 19:13 19:13 07:52 WBC Hgb Hct Plt Count INR APTT Sodium 137 139 Potassium 3.0 L 3.8 D Chloride 101 108 H Carbon Dioxide 25 25 BUN 19 17 Creatinine 1.27 H 1.00 Glucose 169 H 91 Calcium 9.5 8.9 Magnesium 1.4 L 2.1 Troponin I < 0.03 0.60 H* B-Natriuretic Peptide Short CBC 08/16/18 Range/Units 19:13 WBC 4.8 (4.3-11.1) K/mcL Hgb 12.8 (11.5-15.4) g/dL Hct 38.3 (35.3-44.9) % Plt Count 236 (140-400) K/mcL Neutrophils # 2.4 (1.6-8.9) K/mcL BMP 08/17/18 08/16/18 Range/Units 07:52 19:13 Sodium 139 137 (136-145) mEq/L Potassium 3.8 D 3.0 L (3.5-5.1) mEq/L Chloride 108 H 101 (98-107) mEq/L Carbon Dioxide 25 25 (23-29) mEq/L BUN 17 19 (8-23) mg/dL Creatinine 1.00 1.27 H (0.60-1.20) mg/dL Glucose 91 169 H (70-105) mg/dL Calcium 8.9 9.5 (8.6-10.3) mg/dL Cardiac Enzymes 08/17/18 08/16/18 Range/Units 07:52 19:13 Troponin I 0.60 H* < 0.03 (< 0.04) ng/mL Impressions Chest X-Ray 08/16/18 19:03 IMPRESSION: No acute cardiopulmonary findings. D/ / Salazar Chinchilla / Salazar Chinchilla Interpreting Provider: Salazar Chinchilla Active Medications Apixaban (Eliquis) 5 mg PO BID [facility] Stop: 02/16/19 09:01 Last Admin: 08/17/18 09:25 Dose: 5 mg Atorvastatin Calcium (Lipitor) 40 mg PO HS [facility] Stop: 02/16/19 21:01 Ciprofloxacin HCl (Cipro) 250 mg PO BID [facility] Stop: 08/21/18 21:01 Last Admin: 08/17/18 09:24 Dose: 250 mg Clopidogrel Bisulfate (Plavix) 75 mg PO DAILY [facility] Stop: 02/16/19 09:01 Last Admin: 08/17/18 09:24 Dose: 75 mg Sodium Phosphate 30 mmol/ (Sodium Chloride) 260 mls @ 42 mls/hr IVPB ONCE ONE Stop: 08/17/18 13:47 Last Admin: 08/17/18 09:24 Dose: 42 mls/hr Isosorbide Mononitrate (Imdur) 60 mg PO DAILY [facility] Stop: 02/16/19 09:01 Last Admin: 08/17/18 09:24 Dose: 60 mg Metoprolol Tartrate (Lopressor) 5 mg IVP Q5MIN PRN PRN Reason: tachycardia Last Admin: 08/16/18 19:14 Dose: 5 mg Metoprolol Tartrate (Lopressor) 25 mg PO BID [facility] Stop: 02/16/19 09:01 Last Admin: 08/17/18 09:25 Dose: 25 mg Metronidazole (Flagyl) 500 mg PO TID [facility]; Protocol Stop: 08/21/18 22:00 Last Admin: 08/17/18 09:24 Dose: 500 mg Naloxone HCl (Narcan) 0.4 mg IVP Q2MIN PRN PRN Reason: SEE COMMENTS Stop: 02/16/19 07:30 Nitroglycerin (Nitroglycerin) 0.4 mg SL Q5MIN PRN PRN Reason: Chest Pain Stop: 02/16/19 08:29 Omeprazole (Prilosec) 20 mg PO DAILY@0630 [facility]; Protocol Stop: 02/17/19 06:31 Tramadol HCl (Ultram) 50 mg PO Q6HR PRN PRN Reason: Moderate Pain Stop: 02/16/19 07:30 - Imaging and Cardiology Stress Test: report reviewed Echo: report reviewed Cardiac cath: report reviewed - EKG Interpretation EKG results cardiology: personally reviewed, other (12 hr tele AVG HR 65, now SR) Consult Discharge Plan - Plan Referrals: Aristeo White MD [Primary Care Provider] - <Joel Soria - Last Filed: 08/17/18 19:40> - Attending Attestation Patient was seen and evaluated independently by me. Findings, assessment and plan were discussed at length with patient, questions answered. Agree with nurse practitioner's/resident's documentation. Addition as follows, 82 yoCF ho CABGx3 2015 then RCA PCI 2016, HFpEF, PAF, diverticulosis, nephrolithiasis. P/w postprandial cp after days of po intake due to recent divertilulitis and renal colic. Found in Afib RVR with spontaneous SR conversion. Trop 0.6-0.5 K3 Mg 1.4. No cp recurrence. HD stable, no evidence ADHF. A: PAF, RVR, spontaneous conversion, on A/C HypoK, hypoMg Mild troponin elevation, demand ischemia likely CAD P: replace K, Mg TTE if no CP recurrence in SR without new Echo abn, no further inpatient cardiology w/u Joel Soria MD, PhD Assessment and Plan Discussion w patient/family: The assessment and plan as outlined above was discussed with the patient and/or family members who expressed understanding and agreement. All questions were answered. Thank you for involving us in the care of your patient. Please call with any questions. History of Present Illness History of present illness: Ms. Phipps is a 82 year old female All Systems Review: The remainder of the systems were reviewed and are negative Results 08/16/18 19:13 08/17/18 07:52 Lab Results 08/16/18 08/16/18 08/16/18 19:13 19:13 19:13 WBC 4.8 Hgb 12.8 Hct 38.3 Plt Count 236 INR 1.3 APTT 31.5 Sodium Potassium Chloride Carbon Dioxide BUN Creatinine Glucose Calcium Magnesium Troponin I B-Natriuretic Peptide 72 08/16/18 08/16/18 08/17/18 19:13 19:13 07:52 WBC Hgb Hct Plt Count INR APTT Sodium 137 139 Potassium 3.0 L 3.8 D Chloride 101 108 H Carbon Dioxide 25 25 BUN 19 17 Creatinine 1.27 H 1.00 Glucose 169 H 91 Calcium 9.5 8.9 Magnesium 1.4 L 2.1 Troponin I < 0.03 0.60 H* B-Natriuretic Peptide 08/17/18 13:55 WBC Hgb Hct Plt Count INR APTT Sodium Potassium Chloride Carbon Dioxide BUN Creatinine Glucose Calcium Magnesium Troponin I 0.51 H* B-Natriuretic Peptide
[2018-08-18] MEDS: Isosorbide MONOnitrate (24 HR) 60 MG TAB.ER.24H PO SCH (10:55)
[2018-08-18] MEDS: metroNIDAZOLE 500 MG TABLET PO SCH (10:56)
[2018-08-18] MEDS: Apixaban 5 MG TABLET PO SCH (10:57)
[2018-08-18 11:43] VITALS: BP 147/68
--- NOTE | 2018-08-18 13:01 | Cardiology Progress Note ---
Date of Encounter: 08/18/18 Time of Encounter: 12:57 Assessment and Plan (1) Elevated troponin Current Visit: Yes Status: Acute Initial troponin negative, then 0.60, 0.51, 0.32 in setting of A-Fib RVR, recent diverticulitis/kidney stones. Discussed with Dr. Soria, suspect demand ischemia, nondiagnostic for ACS. Endorses chest pain over the past week intermittently, then episode prior to admission. Currently chest pain free. TTE EF remains preserved 60% with normal wall motion. Negative stress test 04/2018. C 05/24/2017: LM 95% stenosis. LAD proximal 70% stenosis, small vessel. D1 normal. CX 95% stenosis. RCA 80% stenosis (GREGOR x3). SVG-OM1 patient. SVG-RPDA 95% distal stenosis. JACKSON-mLAD patent. No further inpt cardiac testing is warranted. Cardiology signing off. Reconsult PRN. Will coordinate outpt cardiology follow- up in 2-3 weeks. (2) Paroxysmal atrial fibrillation Current Visit: Yes Status: Chronic Presented A-Fib RVR. Known hx of PAF. Initial episode s/p CABG, then PAF episode 12/2017 when pt was started on Eliquis, now with recurrence. Suspect current episode secondary to electrolyte imbalance with decreased PO intake due to diverticulitis and kidney stones. K 3.0 and Mag 1.4 on admission--replaced. Anticoagulated on Eliquis. Discussed outpt EP referral given recurrence of PAF and pt is agreeable. Maintaining SR overnight. Continue BB. (3) CAD (coronary artery disease), [place] coronary artery Current Visit: Yes Status: Chronic Hx of CABG and PCI. Continue Plavix, Statin, BB, Imdur. Not on ASA due to being on Eliquis. Qualifiers: [place] vs. transplanted heart: [place] heart Associated angina: angina presence unspecified Qualified Code(s): I25.10 - Atherosclerotic heart disease of [place] coronary artery without angina pectoris Discussion w patient/family: The assessment and plan as outlined above was discussed with the patient and/or family members who expressed understanding and agreement. All questions were answered. Thank you for involving us in the care of your patient. Please call with any questions. I will discuss all the above with Dr. Soria and make changes as necessary. Subjective Principal diagnosis: PAF Interval history: Pt denies chest pain or dyspnea overnight. Remains SR. Troponins downtrended. TTE EF preserved. Objective Vital Signs, Last 4 Hours Temp Pulse Resp BP Pulse Ox 08/18/18 11:42 97.5 F L 59 14 147/68 96 08/18/18 09:31 95 Vital Signs Temp Pulse Resp BP Pulse Ox 08/18/18 11:42 97.5 F L 59 14 147/68 96 08/18/18 09:31 95 08/18/18 07:38 97.6 F 59 16 165/77 95 08/18/18 03:26 98.3 F 62 17 161/74 95 08/17/18 23:39 97.8 F 58 16 152/71 97 08/17/18 19:33 98.6 F 61 17 131/73 96 08/17/18 15:14 97.7 F 67 16 138/69 97 Intake and Output 08/17/18 08/18/18 08/18/18 23:59 07:59 15:59 Intake Total 120 / 120 Output Total 0 / 0 Balance 120 / 120 0 / 0 Intake: Oral 120 / 120 Output: Urine 0 / 0 Other: Meal Dinner Percent of Meal Consumed 40% Weight 73.1 kg General: Conversant, No Apparent Distress HEENT: Atraumatic, Normocephaly, Mucus Membranes Moist Neck: No JVD, Normal carotid pulses Cardiac: Reg Rate and Rhythm, Normal S1 and S2, No Murmur Lungs: Normal Breath Sounds, No Wheeze, Rales, Rhonchi Neuro: Alert and responsive, No focal deficits noted Abdomen: Soft, Non-Tender Skin: No rashes noted on visualized skin Musculoskeletal: No Chest Wall Tenderness Extremities: No Clubbing, No Cyanosis, No Edema, Normal Pulses Results 08/16/18 19:13 08/17/18 07:52 Lab Results 08/17/18 08/17/18 13:55 19:47 Troponin I 0.51 H* 0.32 H* Cardiac Enzymes 08/17/18 08/17/18 Range/Units 19:47 13:55 Troponin I 0.32 H* 0.51 H* (< 0.04) ng/mL Impressions Echocardiogram 08/18/18 10:22 Impressions: LVEF 60%. Atypical septal motion consistent with post-operative status. Moderate left ventricular diastolic dysfunction. Normal right ventricular structure and function. Mild mitral regurgitation. Moderate tricuspid regurgitation. Mild pulmonary hypertension. Left Ventricular Wall Motion: Rest Echo Findings All wall segments showed normal motion. Findings: Study Quality * Technically adequate exam. ECG Findings * Normal sinus rhythm. Left Ventricle * LVEF 60%. * Normal LV chamber size, wall thickness and function. * Atypical septal motion consistent with post-operative status. * Moderate left ventricular diastolic dysfunction. Right Ventricle * Normal right ventricular structure and function. Left Atrium * Moderately dilated left atrium. Right Atrium * Normal right atrial size. Aortic Valve * No aortic regurgitation. * Trileaflet aortic valve. * No aortic stenosis. Mitral Valve * Mild mitral regurgitation. * No mitral stenosis. * Normal mitral valve structure. Tricuspid Valve * Normal tricuspid valve structure. * Moderate tricuspid regurgitation. * Estimated RA pressure is 3 mmHg. * Estimated RVSP is 38 mmHg. * Mild pulmonary hypertension. Pulmonic Valve * Pulmonic valve is not well visualized. * No pulmonic stenosis. * Trace pulmonic regurgitation. Pulmonary Artery * Pulmonary artery not well visualized. Aorta * Normally sized aortic root. Pericardium * There is no pericardial effusion present. Interatrial Septum * No evidence of PFO by color Doppler. IVC * Normal IVC dimensions and inspiratory collapse. Active Medications Apixaban (Eliquis) 5 mg PO BID [facility] Stop: 02/16/19 09:01 Last Admin: 08/18/18 10:57 Dose: 5 mg Atorvastatin Calcium (Lipitor) 40 mg PO HS [facility] Stop: 02/16/19 21:01 Last Admin: 08/17/18 20:33 Dose: 40 mg Ciprofloxacin HCl (Cipro) 250 mg PO BID [facility] Stop: 08/21/18 21:01 Last Admin: 08/18/18 10:56 Dose: 250 mg Clopidogrel Bisulfate (Plavix) 75 mg PO DAILY [facility] Stop: 02/16/19 09:01 Last Admin: 08/18/18 10:55 Dose: 75 mg Isosorbide Mononitrate (Imdur) 60 mg PO DAILY [facility] Stop: 02/16/19 09:01 Last Admin: 08/18/18 10:55 Dose: 60 mg Metoprolol Tartrate (Lopressor) 5 mg IVP Q5MIN PRN PRN Reason: tachycardia Last Admin: 08/16/18 19:14 Dose: 5 mg Metoprolol Tartrate (Lopressor) 25 mg PO BID [facility] Stop: 02/16/19 09:01 Last Admin: 08/18/18 10:57 Dose: 25 mg Metronidazole (Flagyl) 500 mg PO TID [facility]; Protocol Stop: 08/21/18 22:00 Last Admin: 08/18/18 10:56 Dose: 500 mg Naloxone HCl (Narcan) 0.4 mg IVP Q2MIN PRN PRN Reason: SEE COMMENTS Stop: 02/16/19 07:30 Nitroglycerin (Nitroglycerin) 0.4 mg SL Q5MIN PRN PRN Reason: Chest Pain Stop: 02/16/19 08:29 Omeprazole (Prilosec) 20 mg PO DAILY@0630 [facility]; Protocol Stop: 02/17/19 06:31 Last Admin: 08/18/18 06:38 Dose: 20 mg Tramadol HCl (Ultram) 50 mg PO Q6HR PRN PRN Reason: Moderate Pain Stop: 02/16/19 07:30 - Imaging and Cardiology Echo: report reviewed - EKG Interpretation EKG results cardiology: other (12 hr tele AVG HR 61, SR) Consult Discharge Plan - Plan Referrals: Aristeo White MD [Primary Care Provider] - 08/24/18 1:00 pm
--- NOTE | 2018-08-18 14:09 | Discharge Summary ---
- NOTES TO OUTPATIENT PROVIDER Notes to Outpatient Provider: Follow with cardiology within 1-2 weeks of hospital discharge. Date of Encounter: 08/18/18 Time of Encounter: 14:06 - Discharge Diagnosis (1) Atrial fibrillation with RVR Priority: Primary Status: Resolved (2) Chest pain Priority: Secondary Status: Resolved Qualifiers: Chest pain type: unspecified Qualified Code(s): R07.9 - Chest pain, unspecified (3) Hypokalemia Priority: Secondary Status: Acute (4) Hypomagnesemia Priority: Secondary Status: Acute (5) DVT prophylaxis Priority: Secondary Status: Acute (6) CAD (coronary artery disease), [place] coronary artery Priority: Secondary Status: Chronic Qualifiers: [place] vs. transplanted heart: [place] heart Associated angina: angina presence unspecified Qualified Code(s): I25.10 - Atherosclerotic heart disease of [place] coronary artery without angina pectoris (7) CKD (chronic kidney disease) stage 3, GFR 30-59 ml/min Priority: Secondary Status: Chronic (8) HLD (hyperlipidemia) Priority: Secondary Status: Chronic Qualifiers: Hyperlipidemia type: mixed hyperlipidemia Qualified Code(s): E78.2 - Mixed hyperlipidemia (9) HTN (hypertension) Priority: Secondary Status: Chronic Qualifiers: Hypertension type: essential hypertension Qualified Code(s): I10 - Essential (primary) hypertension (10) Diverticulitis Priority: Secondary Status: Acute Hospital course: Ms. Phipps is a 82 year old female PMH A. fib, hypertension, coronary artery disease status post CABG in 2016 and stent placement in 2017, CKD and a recent diagnosis of diverticulitis. Patient presented to the ED due to sudden onset of chest pain which started after she drank and ate something at home. Patient reports that she started having retro sternal 9/10, constant pressure like chest pain radiating to her back, right in the middle of her shoulders, she reports that the pain lasted more than 30 minutes, and she took a pill of nitroglycerin without relief for which she decided to come to the ED. She reports mild shortness of breath, and palpitation associated with the chest pain. denies nausea, vomiting, dizziness of lightheadedness. In the ED patient was found to be in A. Fib with RvR with the rate >150s. Patient managed with IV labetalol in the ED and re-started on her home medications and her rate was back to controlled. Trops were found to be elevated for which cardiology was consulted. they recommended against any invasive intervention and recommended to the patient to follow up with them in the outpatient setting within 2-3 weeks. Patient acute symptoms have resolved and patient is hemodynamically stable to be discharged home. - Time Spent with Patient Total time spent providing and/or coordinating discharge services: Less than 30 minutes (25) - Discharge Medications Home Medications: Atorvastatin [Lipitor] 40 mg PO HS 10/15/17 [History] Clopidogrel [Plavix] 75 mg PO DAILY 11/18/17 [History] Isosorbide MONOnitrate (24 HR) [Imdur] 60 mg PO DAILY 11/18/17 [History] Nitroglycerin 0.4 mg SL Q5MIN PRN tab.subl 11/18/17 [Rx] Cholecalciferol (D-3) [Vitamin D] 1,000 unit PO BID 01/01/18 [History] Furosemide [Lasix] 40 mg PO DAILY 01/01/18 [History] Multivitamin [One Daily Essential] 1 tab PO DAILY 01/01/18 [History] Pantoprazole Sodium [Protonix] 40 mg PO DAILY 01/01/18 [History] Ciprofloxacin HCl [Cipro] 500 mg PO BID #20 tablet 08/08/18 [Rx] metroNIDAZOLE [Flagyl] 500 mg PO TID #30 tablet 08/08/18 [Rx] Apixaban [Eliquis] 5 mg PO DAILY 08/16/18 [History] Potassium Chloride [Klor-Con 10] 10 meq PO DAILY 08/16/18 [History] Losartan [Cozaar] 25 mg PO DAILY 08/17/18 [History] Metoprolol [Lopressor] 50 mg PO BID 08/17/18 [History] Allergies/Adverse Reactions: Allergy/AdvReac Type Severity Reaction Status Date / Time diltiazem Allergy Hives Verified 01/01/18 10:01 Sulfa (Sulfonamide Allergy unknown Verified 01/01/18 10:01 Antibiotics) Iodinated Contrast- Oral and AdvReac Swelling Verified 01/01/18 10:01 IV Dye of [Iodinated Contrast Media - Lip/Tongue/Throat IV Dye] Date of admission: 08/16/18 21:20 Primary care physician: Aristeo White MD Consults: 08/16/18 20:34 Consult to Cardiology [CONS] Stat Comment: Consulting Provider: Cardiology Magaly Reason for Consult: Afib RVR Call Completed: Yes - Constitutional Vitals: Temp Pulse Resp BP Pulse Ox 97.5 F L 59 14 147/68 96 08/18/18 11:42 08/18/18 11:42 08/18/18 11:42 08/18/18 11:42 08/18/18 11:42 Exam: Vitals: Reviewed General: Well-nourished, in no distress Skin: Warm and supple. HEENT: Moist mucous membranes. No conjunctivae pallor. Neck: No lymphadenopathy. No JVD. No carotid bruits. No palpable thyroid. Chest: Breath sounds are clear to auscultation bilaterally, no wheezing, rales or rhonchi. Heart: Irregularly regular, Normal S1 & S2. No rubs or murmurs. Abdomen: Obese, Non-distended, soft, mildly tender to palpation in the left lower quadrant. Extremities: No edema. Normal distal pulses. Neurological: Awake, alert and oriented to person, place and time. CN II-XII intact. Psych: Affect appropriate. - Patient Status Disposition: Home, Self-Care Condition: Good Functional capacity at discharge: independent ambulation Overall status at discharge: patient is back to baseline - Discharge Instructions Follow Up With: Aristeo White MD [Primary Care Provider] - 08/24/18 1:00 pm - Diet and Activity Activity: resume usual activities as tolerated Diet: advance to your usual diet, low salt diet
--- NOTE | 2018-08-18 21:20 | Electrocardiograph Report ---
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
--- NOTE | 2018-08-18 21:21 | Electrocardiograph Report ---
[place] [address] Test Date: 2018-08-17 Pat Name: Tali Phipps Department: [id number] Room: 2A32 Gender: F Reclaimer: : 1935 Requested By: Endy Castro Order Number: [id number] Reading MD: Michelle Ha Measurements Intervals [place] Rate: 66 P: 103 AR: 197 QRS: -59 QRSD: 136 T: -17 QT: 455 QTc: 469 Interpretive Statements SINUS RHYTHM RIGHT BUNDLE BRANCH BLOCK LEFT ANTERIOR FASCICULAR BLOCK VOLTAGE CRITERIA FOR LVH Electronically Signed On 08-18-2018 21:20:09 EDT by Michelle Ha
--- NOTE | 2018-08-19 19:32 | Electrocardiograph Report ---
[address] [place], [place] [address] Test Date: 2018-08-16 Pat Name: Tali Phipps Department: [id number] Room: 2A32 Gender: Psych Tech: : 1935 Requested By: Fransico Hernandez Order Number: [id number] Reading MD: Jered Modi Measurements Intervals [place] Rate: 144 P: 269 LA: 216 QRS: -81 QRSD: 130 T: 86 QT: 350 QTc: 542 Interpretive Statements ATRIAL FIBRILLATION WITH RVR RIGHT BUNDLE BRANCH BLOCK LEFT AXIS DEVIATION Electronically Signed On 08-19-2018 19:30:21 EDT by Jered Modi
== END 2018-08-18 14:37 | disposition home or self-care (01) ==
LOC: 2ANU 18:28 → EMEROOARM 18:28 → SUATTDRO 21:20 → 2ANU 22:49
PROVIDERS: ADMIT Family Medicine; ATTEND Internal Medicine